=== PATIENT | female | born 1990 | race Caucasian/White ===

== ENCOUNTER 2021-02-05 15:11 | Outpatient (CLI) | payer OTHER, SELFPAY ==
[2021-02-05 16:23] LABS: Abs Immature Grans 0.03 10^3/uL (0.0-0.06); Absolute Basophil Count 0.02 10^3/uL (0.0-0.2); Absolute Eosinophil Count 0.08 10^3/uL (0.0-0.7); Absolute Lymphocyte Count 2.51 10^3/uL (1.2-3.4); Absolute Monocyte Count 0.59 10^3/uL (0.1-0.8); Absolute Neutrophil Count 7.56 10^3/uL (1.2-6.7); Basophils % 0.2; Eosinophils % 0.7; HCT 39.8 % (36.0-46.0); HGB 13.3 g/dL (11.2-15.7); Immature Grans % 0.3; Lymphocytes % 23.3; MCH 31.3 pg (27.0-33.0); MCHC 33.4 % (32.0-36.0); MCV 93.6 fL (80-95); MPV 11.5 fL (8.0-11.0); Monocytes % 5.5; Nucleated RBC 0 %; Platelet Count 237 10^3/uL (130-400); RBC 4.25 10^6/uL (3.93-5.22); RDW-SD 44.4 fL; WBC 10.79 10^3/uL (4.4-10.8)
[2021-02-05 16:51] LABS: *AMPHETAMINES SCREEN URINE Negative (Negative); *BARBITURATES SCREEN URINE Negative (Negative); *BENZODIAZEPINES SCREEN URINE Negative (Negative); Cannabinoids THC Negative (Negative); Cocaine Screen,Urine Negative (Negative); METHADONE URINE SCREEN Negative (Negative); OPIATES URINE SCREEN Negative (Negative)
[2021-02-05 16:54] LABS: Tricyclic Antidepressants Negative (Negative)
[2021-02-05 17:50] LABS: TSH (W/Ref FT4) 0.04 uIU/mL (0.36-3.74)
[2021-02-07 10:47] LABS: Hepatitis B Surface Ag Negative (Negative)
[2021-02-07 11:27] LABS: Hepatitis C Ab w Rflx HCV PCR Negative (Negative)
[2021-02-07 11:32] LABS: HIV-1/2 Ag & Ab Screen Negative (Negative)
[2021-02-07 13:53] LABS: Syphilis Total Ab w/Reflex Nonreactive (Nonreactive)
[2021-02-07 15:12] LABS: Rubella IgG Ab (UVM) Positive (See Note)
[2021-02-08 11:52] LABS: Varicella IgG Antibody Negative (See Note)
[2021-02-09 11:00] LABS: Buprenorphine Negative ng/mL (Cutoff: 5.0); Norbuprenorphine Negative ng/mL (Cutoff: 2.5)
[2021-02-09 18:15] LABS: Specimen WB Whole Blood
[2021-02-14 22:52] LABS: Result Summary NEGATIVE; Specimen WB Whole Blood
== END 2021-02-05 15:12 | disposition home or self-care (01) ==
LOC: LBO 15:14
PROVIDERS: PCP Nurse Practitioner Community Health; Visit Provider Advanced Practice Midwife
DX: Z34.91 Encounter for supervision of normal pregnancy, unspecified, first trimester (principal); Z11.4 Encounter for screening for human immunodeficiency virus [HIV]; Z11.59 Encounter for screening for other viral diseases; Z01.84 Encounter for antibody response examination
CPT/HCPCS: 36415; 80307; 81329; 86787; 86803; 86850; 86900; 86901; 87340; 87389; 81220; 84439; 84443; 85025; 86762; 86780; 87086

== ENCOUNTER 2021-02-14 07:25 | Outpatient (CLI) | payer OTHER, SELFPAY ==
[2021-02-14 10:52] LABS: Glucose,1 Hr (Glucola) 85 mg/dL (80-140)
[2021-02-15 04:30] LABS: Vitamin D 25 Total 22.2 ng/mL (30-100)
== END 2021-02-14 07:26 | disposition home or self-care (01) ==
LOC: LBO 07:33
PROVIDERS: PCP Nurse Practitioner Community Health; Visit Provider Advanced Practice Midwife
DX: O99.342 Other mental disorders complicating pregnancy, second trimester (principal); Z68.30 Body mass index [BMI] 30.0-30.9, adult; F32.9 Major depressive disorder, single episode, unspecified; Z3A.14 14 weeks gestation of pregnancy; E55.9 Vitamin D deficiency, unspecified
CPT/HCPCS: 36415; 82306; 82950

== ENCOUNTER 2021-03-16 11:14 | Outpatient (REF) | payer OTHER, SELFPAY ==
[2021-03-19 15:11] LABS: Chlamydia Result Negative (Negative); GC Result Negative (Negative)
== END 2021-03-16 11:15 | disposition home or self-care (01) ==
LOC: LBN 11:14
PROVIDERS: PCP Nurse Practitioner Community Health; Visit Provider Advanced Practice Midwife
DX: Z11.3 Encounter for screening for infections with a predominantly sexual mode of transmission (principal)
CPT/HCPCS: 87491; 87591

== ENCOUNTER 2021-06-08 02:46 | Outpatient (CLI) | payer OTHER, SELFPAY ==
[2021-06-08 12:15] LABS: HCT 32.7 % (36.0-46.0); HGB 10.7 g/dL (11.2-15.7); MCH 30.6 pg (27.0-33.0); MCHC 32.7 % (32.0-36.0); MCV 93.4 fL (80-95); MPV 11.1 fL (8.0-11.0); Platelet Count 194 10^3/uL (130-400); RDW 13.5 % (11.7-14.6); RDW-SD 46.2 fL; WBC 11.86 10^3/uL (4.4-10.8)
[2021-06-08 12:23] LABS: Glucose,1 Hr (Glucola) 102 mg/dL (80-140)
[2021-06-08 13:57] LABS: FREE T4 1.01 ng/dL (0.76-1.46)
== END 2021-06-08 02:47 | disposition home or self-care (01) ==
LOC: LBO 02:46
PROVIDERS: Advanced Practice Midwife; PCP Nurse Practitioner Community Health; Visit Provider Advanced Practice Midwife
DX: O09.293 Supervision of pregnancy with other poor reproductive or obstetric history, third trimester (principal); Z79.82 Long term (current) use of aspirin; R79.89 Other specified abnormal findings of blood chemistry; Z3A.30 30 weeks gestation of pregnancy
CPT/HCPCS: 82950; 85027; 84439; 84443

== ENCOUNTER 2021-07-19 16:54 | Outpatient (REF) | payer OTHER, SELFPAY ==
[2021-07-19 16:18] LABS: *AMPHETAMINES SCREEN URINE Negative (Negative); *BARBITURATES SCREEN URINE Negative (Negative); *BENZODIAZEPINES SCREEN URINE Negative (Negative); Cannabinoids THC Negative (Negative); Cocaine Screen,Urine Negative (Negative); METHADONE URINE SCREEN Negative (Negative); OPIATES URINE SCREEN Negative (Negative)
[2021-07-19 16:19] LABS: Tricyclic Antidepressants Negative (Negative)
[2021-07-24 14:15] LABS: Buprenorphine Negative ng/mL (Cutoff: 5.0); Norbuprenorphine Negative ng/mL (Cutoff: 2.5)
== END 2021-07-19 16:55 | disposition home or self-care (01) ==
LOC: NCHCN 16:54
PROVIDERS: PCP Nurse Practitioner Community Health; Visit Provider Advanced Practice Midwife
DX: Z34.93 Encounter for supervision of normal pregnancy, unspecified, third trimester (principal); Z3A.36 36 weeks gestation of pregnancy
CPT/HCPCS: 80307; 87081

== ENCOUNTER 2021-07-31 15:20 | Outpatient (CLI) | payer OTHER, SELFPAY ==
[2021-07-31 15:25] VITALS: BP 123/79; PULSE 79; TEMP 36.6
[2021-07-31 15:49] VITALS: BP 127/82; PULSE 75; TEMP 36.6
[2021-07-31 16:04] VITALS: BP 133/86; PULSE 74
[2021-07-31 16:19] VITALS: BP 130/79; PULSE 81
[2021-07-31 16:31] LABS: HCT 30.1 % (36.0-46.0); HGB 9.6 g/dL (11.2-15.7); MCH 28.7 pg (27.0-33.0); MCHC 31.9 % (32.0-36.0); MCV 90.1 fL (80-95); MPV 11.2 fL (8.0-11.0); Platelet Count 180 10^3/uL (130-400); RBC 3.34 10^6/uL (3.93-5.22); RDW 14.9 % (11.7-14.6); RDW-SD 48.8 fL; WBC 9.37 10^3/uL (4.4-10.8)
[2021-07-31 16:36] LABS: PROTEIN 24.8 mg/dL
[2021-07-31 16:44] LABS: COMMENT (LAB VIEW ONLY) 57.97 mg/dL; Prot/Crea Ur Ratio 0.42
[2021-07-31 16:46] LABS: ALT 14 U/L (14-59); AST 16 U/L (15-37); Albumin 2.6 g/dL (3.4-5.0); Alkaline Phosphatase 142 U/L (46-116); Anion Gap 9.9 mmol/L (3-11); BUN 10 mg/dL (7-18); Bilirubin, Total 0.3 mg/dL (0.2-1.0); CO2 23.1 mmol/L (21.0-32.0); CREATININE 0.7 mg/dL (0.55-1.02); Calcium 8.8 mg/dL (8.5-10.1); Chloride 106 mmol/L (98-107); Glucose 80 mg/dL (74-106); Potassium 3.8 mmol/L (3.5-5.1); Sodium 139 mmol/L (136-145); Total Protein 6.8 g/dL (6.4-8.2); Uric Acid 5.6 mg/dL (2.6-6.0)
--- NOTE | 2021-07-31 18:59 | W.OBNST ---
Date of service: 07/31/21 Time of Service: 18:59 NST Evaluation Reason for NST Reasons for Nonstress Test: CHRONIC HYPERTENSION Gestational Age Gestational Age in Weeks and Days: 38 Weeks and 1Days Test and Monitor Explained Test/Monitor Explained: Test Explained, Monitor Explained and Patient Verbalized Understanding Vital Signs Blood Pressure: 123/79 Pulse: 79 Temperature: 97.9 F NST Information Date on Monitor: 07/31/21 Time on Monitor: 15:19 Date off Monitor: 07/31/21 Time off Monitor: 16:23 Total Time on Monitor: 64 NST Interventions: PO Hydration and Notify Provider NST Evaluation Patient States Movement: Present FHR Baseline: 130 Variability: Moderate 6-25 bpm Accelerations: 15x15 Decelerations: None NST Results: Reactive Note NST Note Note: Labs pending BP normotensive NST reactive RTO on Friday for repeat NST & BP check NST Reviewed and Verified by: Claire Zurita
[2021-07-31 19:00] VITALS: BP 123/79; PULSE 79; TEMP 36.6
== END 2021-07-31 16:30 | disposition home or self-care (01) ==
LOC: BCD 15:21 → OBS 15:39
PROVIDERS: PCP Nurse Practitioner Community Health; Visit Provider Advanced Practice Midwife
DX: O10.013 Pre-existing essential hypertension complicating pregnancy, third trimester (principal); Z3A.38 38 weeks gestation of pregnancy
CPT/HCPCS: 36415; 80053; 85027; 99211; 59025; 82565; 84156; 84550

== ENCOUNTER 2021-08-02 15:30 | Outpatient (REF) | payer OTHER, SELFPAY ==
[2021-08-02 11:38] LABS: Creatinine,Urine 34.85 mg/dL; PROTEIN 17.2 mg/dL (0.0-11.9)
[2021-08-02 11:39] LABS: Creatinine,24hr Ur 1.01 g/24hr (0.60-1.80); TOTAL PROTEIN,URINE TIMED 498.8 mg/24hr (0.0-149.1); Total Volume 2900 ml
== END 2021-08-02 15:31 | disposition home or self-care (01) ==
LOC: LBN 15:30
PROVIDERS: PCP Nurse Practitioner Community Health; Visit Provider Advanced Practice Midwife
DX: R80.9 Proteinuria, unspecified (principal); Z34.93 Encounter for supervision of normal pregnancy, unspecified, third trimester
CPT/HCPCS: 81050; 82570; 84155

== ENCOUNTER 2021-08-03 07:48 | Outpatient (CLI) | payer OTHER, SELFPAY ==
[2021-08-03 14:50] VITALS: BP 139/82; PULSE 78; TEMP 36.7
[2021-08-03 15:02] VITALS: BP 139/82; PULSE 78
--- NOTE | 2021-08-03 15:28 | W.OBNST ---
Date of service: 08/03/21 Time of Service: 15:28 NST Evaluation Reason for NST Reasons for Nonstress Test: GESTATIONAL HYPERTENSION Gestational Age Gestational Age in Weeks and Days: 38 Weeks and 4Days Test and Monitor Explained Test/Monitor Explained: Test Explained, Monitor Explained and Patient Verbalized Understanding Vital Signs Blood Pressure: 139/82 Pulse: 78 Temperature: 98.1 F Urine Results Urine Protein: Positive Urine Ketones: Negative Urine Glucose: Negative Urine Blood: Positive NST Information Date on Monitor: 08/03/21 Time on Monitor: 14:58 Date off Monitor: 08/03/21 Time off Monitor: 15:24 Total Time on Monitor: 26 NST Interventions: PO Hydration Contraction Frequency: 0 NST Evaluation Patient States Movement: Present FHR Baseline: 135 Variability: Moderate 6-25 bpm Accelerations: 15x15 Decelerations: None NST Results: Reactive Note NST Note Note: NST is reactive and reassuring. BP is stable 139/82, no edema, denies RICHARDSON, visual disturbance, epigastric pain or ill feeling. Prefers to avoid induction if possible. Strike Planning Applications reviewed NST, VS and recent 24 hour urine protein as well as patient history with Dr. Lamb who agreed to repeat testing next week. Patient will return for NST 08/07/21 at 1 pm and will be further assessed at that time. We discussed misoprostol, balloon, pitocin as methods of induction and will likely plan VE next week as well. Patient is pleased to go home and will call with any concerns. NST Reviewed and Verified by: Beatriz Scott
[2021-08-03 15:30] VITALS: BP 139/82; PULSE 78; TEMP 36.7
[2021-08-04 08:20] VITALS: BP 136/81; PULSE 67
== END 2021-08-03 15:28 | disposition home or self-care (01) ==
LOC: BCD 07:49 → OBS 14:49
PROVIDERS: PCP Nurse Practitioner Community Health; Visit Provider Advanced Practice Midwife
DX: O13.3 Gestational [pregnancy-induced] hypertension without significant proteinuria, third trimester (principal); Z3A.38 38 weeks gestation of pregnancy
CPT/HCPCS: 59025

== ENCOUNTER 2021-08-07 07:24 | Outpatient (CLI) | payer OTHER, SELFPAY ==
[2021-08-07 13:12] VITALS: BP 136/75; PULSE 78
[2021-08-07 13:14] VITALS: BP 136/75; PULSE 78; TEMP 36.6
[2021-08-07 13:30] VITALS: BP 136/75; PULSE 78; TEMP 36.6
--- NOTE | 2021-08-07 13:40 | W.OBNST ---
Date of service: 08/07/21 Time of Service: 13:30 NST Evaluation Reason for NST Reasons for Nonstress Test: GESTATIONAL HYPERTENSION Gestational Age Gestational Age in Weeks and Days: 39 Weeks and 1Days Test and Monitor Explained Test/Monitor Explained: Test Explained, Monitor Explained and Patient Verbalized Understanding Vital Signs Blood Pressure: 136/75 Pulse: 78 Temperature: 97.8 F NST Information Date on Monitor: 08/07/21 Time on Monitor: 13:02 Date off Monitor: 08/07/21 Time off Monitor: 13:22 Total Time on Monitor: 20 NST Interventions: None Contraction Frequency: 0 NST Evaluation Patient States Movement: Present FHR Baseline: 120 Variability: Moderate 6-25 bpm Accelerations: 15x15 Decelerations: None NST Results: Reactive Note NST Note Note: Michell presents for NST due to history of GHTN in previous , as well as proteinuria affecting this . She is feeling well and prefers to avoid induction of labor but agrees to induction at 40 weeks gestation. She denies RICHARDSON, visual disturbance or epigastric pain. Denies edema. Reports active baby. She has occasional contractions. No LOF or vaginal bleeding. VE today fingertip 50% soft -2 cervix is funneled with exterior os almost 2 cm and internal os fingertip. She is aware of methods of induction available including misoprotol, liu bulb, pitocin and AROM that may be used during process. We discussed that after her due date there is no benefit to baby remaining in uterus and her kidneys have shown evidence of potential injury likely related to her mild HTN and . Denies questions and will return for NST on 08/10/21 and IOL on 08/13/21 or call CNM foreign legal consultant with concerns prior to that time. LAURA NST Reviewed and Verified by: Beatriz Scott
[2021-08-07 13:45] VITALS: BP 136/75; PULSE 78; TEMP 36.6
[2021-08-08 11:08] VITALS: BP 112/65; PULSE 100
== END 2021-08-07 13:40 | disposition home or self-care (01) ==
LOC: BCD 07:24 → OBS 12:54
PROVIDERS: PCP Nurse Practitioner Community Health; Visit Provider Advanced Practice Midwife
DX: O12.13 Gestational proteinuria, third trimester (principal); Z3A.39 39 weeks gestation of pregnancy; Z86.79 Personal history of other diseases of the circulatory system
CPT/HCPCS: 59025

== ENCOUNTER 2021-08-10 07:35 | Outpatient (CLI) | payer OTHER, SELFPAY ==
[2021-08-10 14:50] VITALS: BP 128/78; PULSE 82; TEMP 36.6
--- NOTE | 2021-08-10 17:19 | W.OBNST ---
Date of service: 08/10/21 Time of Service: 16:30 NST Evaluation Reason for NST Reasons for Nonstress Test: GESTATIONAL HYPERTENSION Gestational Age Gestational Age in Weeks and Days: 39 Weeks and 4Days Test and Monitor Explained Test/Monitor Explained: Test Explained and Monitor Explained Vital Signs Blood Pressure: 128/78 Pulse: 82 Temperature: 97.9 F Urine Results Urine Protein: Positive Urine Ketones: Negative Urine Glucose: Negative Urine Blood: Positive NST Information Date on Monitor: 08/10/21 Time on Monitor: 14:54 Date off Monitor: 08/10/21 Time off Monitor: 16:22 Total Time on Monitor: 88 NST Interventions: PO Hydration NST Evaluation Patient States Movement: Present FHR Baseline: 145 Variability: Moderate 6-25 bpm Accelerations: 15x15 Decelerations: None NST Results: Reactive Note NST Note Note: reactive and reassuring NST for pre-eclampsia in . No signs of labor. Denies RICHARDSON, visual disturbance or epigastric pain. No LOF or vaginal bleeding. Baby is active. Has IOL scheduled for 08/13/21. LAURA NST Reviewed and Verified by: Beatriz Scott
[2021-08-10 17:21] VITALS: BP 128/78; PULSE 82; TEMP 36.6
== END 2021-08-10 16:25 | disposition home or self-care (01) ==
LOC: BCD 07:36 → OBS 14:48
PROVIDERS: PCP Nurse Practitioner Community Health; Visit Provider Advanced Practice Midwife
DX: O13.3 Gestational [pregnancy-induced] hypertension without significant proteinuria, third trimester (principal); Z3A.39 39 weeks gestation of pregnancy
CPT/HCPCS: 59025

== ENCOUNTER 2021-08-12 22:17 | Inpatient (IN) | payer OTHER, SELFPAY ==
[2021-08-12 23:24] LABS: Source Nasal/Nares
[2021-08-12 23:30] VITALS: BP 125/65; PULSE 114; RESP 22; TEMP 37.1
[2021-08-13] VITALS (34 sets, daily range): BP systolic 72–146; BP diastolic 40–92; PULSE 63–106; RESP 12–18; TEMP 36.6–37.1; O2SAT 96–100; BMI 33.5
--- NOTE | 2021-08-13 00:10 | HPE_ITS ---
Date of service: 08/13/21 Time of Service: 00:10 Assessment and Plan Assessment and plan (1) Spontaneous onset of labor: Status: Acute Assessment and plan: Admit to Center. Comfort measures. Covid- 19 test. Requested the tub for comfort but moved to hands and knees on the floor. Coping well with contractions. Anticipate . OB-HPI Labor/Delivery History of Present Illness Reason for Visit: RULE OUT LABOR Chief Complaint: Uterine Contractions. KENNETH Calculator Estimated Delivery Date Method Current WG Current Estimate 08/13/21 LMP (Certain) 40w 0d Other Estimates 08/21/21 Ultrasound #1 38w 6d Comments: strong regular contractions, receiving support from Waleska rios and her Jacques History of Present Expected Delivery Route/Plan - CNM FOB/ - Jacques Garrido (their second child together) Does not want to know gender - do not announce gender at delivery - discuss @ second stage huddle Will not circ if male Varicella non-immune, offer vaccine support team is Jacques () and blanca Min GBS negative Specific Issues/Plan 1. Developed HTN in labor at center, transferred to [facility] hosp, , had PPH. 1a. Request delivery records from [facility] 1a. Records from Center indicate patient had severe range BP's that required Nifedipine and after delivery there was PPH requiring 2 units of PRBC's this is anecdotally recorded was on NIfedipine for a week or so PP as well. 1c. Started 81 mg/161 mg low dose ASA alternating daily at 13 weeks, 1d. 04/13 - taking 81 mg daily due to bruising. 3. Hx depression, took Wellbutrin briefly without relief, no meds, looking for a therapist 3a. will offer referral to [facility] for eval and referral, declined 06/08/21 3b. Began therapy at the [facility] in November 2020 3c. Enrolled in [employer] program, had first home visit May 2021 4. Insurance declined APOLINAR for APOLINAR [place] approved for CF/SMA carrier screening, drawn 02/05 4a. CF/SMA screen negative 5. PAP was done 03/15/20 @ [facility], records received & scanned into EMR 6. 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 Offer LC consult after 36 wks 7. Early glucola for BMI=30: 85. glucola @ 30 wks = 102 8. Has been fully vaccinated against COVID, is vaccinated too 9. Initial OB TSH 0.04/T4 1.20, Discussed w/patient, redrawn @ 30 wks: TSH 0.20 (L)/T4 1.01, repeat in labor 10. Varicella non immune, discussed PP vaccine , pt accepts 11. Vit D low at 22.2, will recommend supplementation. @ 30 wks: taking gummy Vit D supplement 12. Petechial rash on chin and neck - consult with Dr. Bateman - CBC with diff ordered 12a. Cleared up after 1 week PFSH Medical History Depression Family History Father Diabetes Hypertension Social History Smoking risk assessment performed?: No Female Reproductive History Menstrual control method: none History History 3 Para 1 Hx # Term Pregnancies 1 Multiple births 0 Hx # Pregnancies 0 Ectopic pregnancies 0 AB induced 0 Hx Number of Living Children 1 AB spontaneous 1 Past Pregnancies Del. Date GA/Weeks # Outcome Route Wgt Sex Labor Lgth Anesthes ia Location [facility] 11/10/19 40 No Successful vaginal 8 lb 13 oz Male 48+ hrs regional CNM at [facility] In [facility] Delivery Date: 11/10/19 Saw midwives at [facility], labored there for 10 hrs transfered to hospital for HTN, augmented, epidural, labored 2 more days, , PPH of 900 ml, required 2 units PRBC's, Beatriz Camilo Allergies and Home Medications Allergies Allergy/AdvReac Type Severity Reaction Status Date / Time No Known Allergies Allergy Verified 08/07/21 13:48 Home Medications Medication Instructions Recorded Confirmed Type prenat.vits,zhou,olh-ljqn-uands 1 tab PO DAILY 01/02/21 08/07/21 History aspirin 81 mg tablet,delayed 81 mg PO DAILY #90 tab 02/05/21 08/07/21 Rx release cholecalciferol (vitamin D3) 10 2,000 unit PO DAILY tab 06/22/21 08/07/21 History mcg (400 unit) chewable tablet iron sucrose 200 mg iron/10 mL 200 mg IV ONCE #10 ml 07/31/21 08/07/21 Rx intravenous solution Exam Physical Exam Vital signs: Temp Pulse Resp BP 98.8 F 114 H 22 125/65 08/12/21 23:30 08/12/21 23:30 08/12/21 23:30 08/12/21 23:30 Vital Signs Reviewed: Yes Constitutional Constitutional: moderate distress Comments: breathing through contractions and hands and knees position Detailed Labor and Delivery Exam Dilation: 5 Effacement (%): 100 station: -2 Cervix position: mid Consistency: soft Sterling Score: Cervical Points Exam 0 1 2 3 Dilation Closed 1-2cm 3-4 cm 5-6cm Effacement 0-30% 40-50% 60-70% 80% Consistency Firm Medium Soft Station -3 -2 -1,0 +1,+2 Position Posterior Mid Anterior Amniotic Membrane Status: Intact Monitor Mode: External Contraction Frequency(min): every 3 minutes Contraction Duration(sec): 60 Contraction Intensity: Moderate/Strong Fetus A Heart Rate Baseline: 130 Monitor Accelerations: 15 X 15 Monitor Decelerations: None Variability: Moderate (6-25 BPM) Presentation: Cephalic Categories: Category I Respiratory Exam Respiratory Exam: Normal Cardiovascular Exam Cardiovascular Exam: Normal Abdominal Exam Abdominal Exam: Normal Exam Exam: Normal Extremities Exam Extremities Exam: Normal Skin Exam Skin Exam: Normal Psychiatric Exam Psychiatric Exam: Normal Risk Assessment Risk for Shoulder Dystocia Historical/Initial OB: POSITIVE FOR: Pre- BMI>30; NEGATIVE FOR: Pelvic Abnormality, Previous Shoulder Dystocia or Previous Macrosomia Counseling: proven to 8'3 Delivery Plan @ 36wks: spont labor, Risk for Pre-Eclampsia Date Initiated/Initials: to start low dose ASA 01/27/21 jk Yes, if one or more: POSTIVE FOR: Hx Pre-E/Gest HTN; NEGATIVE FOR: Chronic HTN, Multiple Gestation, Pre-gestational DM, Renal Disease, Systemic Lupus or APA Syndrome Yes, if 2 or more: POSITIVE FOR: BMI>30; NEGATIVE FOR: Nulliparity, Age>= 35 yrs, >10yr btwn pregnancies, ethinicty, Mother/Sister w/ Pre-E or Previous IUGR Risk for Post- Hemorrhage Initial: POSITIVE FOR: Previous PPH; NEGATIVE FOR: Multiple Gestation, Known Clotting Deficiency, Grand Multiparity or Anticoagulation Risks Reviewed Risks Reviewed Upon Admission: Yes
[2021-08-13 00:13] LABS: COVID-19 PCR Negative (Negative)
[2021-08-13 00:41] LABS: HCT 35.4 % (36.0-46.0); HGB 11.4 g/dL (11.2-15.7); MCH 29.3 pg (27.0-33.0); MCHC 32.2 % (32.0-36.0); MPV 11.3 fL (8.0-11.0); Platelet Count 213 10^3/uL (130-400); RBC 3.89 10^6/uL (3.93-5.22); RDW 17.8 % (11.7-14.6); RDW-SD 57.1 fL; WBC 14.68 10^3/uL (4.4-10.8)
[2021-08-13] MEDS: Nalbuphine 10 MG/ML AMP SC (00:42)
[2021-08-13] MEDS: Lactated Ringers 1,000 ML 1000 ML IV (01:09)
--- NOTE | 2021-08-13 01:09 | PGE_ITS ---
Date of service: 08/13/21 Time of Service: 01:09 Pelvic Exam Dilation: 5 Effacement (%): 80 station: -2 Cervix Position: mid Consistency: soft Vaginal Exam Presentation: Cephalic Pooling: Negative Contractions Monitor Mode: External Contraction Frequency(min): every 3 min Contraction Duration(sec): 60 Intensity: Strong Fetus A Monitor: Doppler Heart Rate Baseline: 130 Presentation: Vertex Decelerations: None Amniotic Membrane Status: Intact Assessment and Plan Assessment and plan (1) Spontaneous onset of labor: Status: Acute Assessment and plan: Continue to provide comfort measures. nubain 10 mg was administered with good effect and epidural anaalgesia was requested. Katlyn deloris FISH AND WILDLIFE BIOLOGIST is en route. Objective Abnormal lab results 08/13/21 Range/Units 00:35 WBC 14.68 H (4.4-10.8) 10^3/uL RBC 3.89 L (3.93-5.22) 10^6/uL Hct 35.4 L (36.0-46.0) % RDW 17.8 H (11.7-14.6) % MPV 11.3 H (8.0-11.0) fL Temp Pulse Resp BP 98.8 F 114 H 22 125/65 08/12/21 23:30 08/12/21 23:30 08/12/21 23:30 08/12/21 23:30 Laboratory Results WBC 14.68 10^3/uL (4.4-10.8) H 08/13/21 00:35 RBC 3.89 10^6/uL (3.93-5.22) L 08/13/21 00:35 Hgb 11.4 g/dL (11.2-15.7) 08/13/21 00:35 Hct 35.4 % (36.0-46.0) L 08/13/21 00:35 MCV 91.0 fL (80-95) 08/13/21 00:35 MCH 29.3 pg (27.0-33.0) 08/13/21 00:35 MCHC 32.2 % (32.0-36.0) 08/13/21 00:35 RDW 17.8 % (11.7-14.6) H 08/13/21 00:35 Plt Count 213 10^3/uL (130-400) 08/13/21 00:35 MPV 11.3 fL (8.0-11.0) H 08/13/21 00:35 COVID-19 Source Nasal/Nares 08/12/21 23:15 SARS-CoV-2 (PCR) Negative (Negative) 08/12/21 23:15 Subjective Patient Reports: New Complaints Interval history since last seen: Michell is coping well but she requests pain medication. We reviewed options and she requests Nubain SC and an epidural for pain relief. Results Hemoglobin/Hematocrit: Hgb 11.4 g/dL (11.2-15.7) 08/13/21 00:35 Hct 35.4 % (36.0-46.0) L 08/13/21 00:35 Abnormal Lab Findings: Abnormal Labs 08/13/21 00:35 WBC 14.68 H RBC 3.89 L Hct 35.4 L RDW 17.8 H MPV 11.3 H
--- NOTE | 2021-08-13 01:18 | W.ANESPRE ---
General Info Date of Service Date Performed: 08/13/21 Height: 5 ft 8 in Weight: 100.244 kg Body Mass Index (BMI): 33.5 Meds Allergies and Home Medications Allergies Allergy/AdvReac Type Severity Reaction Status Date / Time No Known Allergies Allergy Verified 08/07/21 13:48 Home Medication Medication Instructions Recorded prenat.vits,zhou,zdj-ugdy-fzahp 1 tab PO DAILY 01/02/21 aspirin 81 mg tablet,delayed 81 mg PO DAILY #90 tab 02/05/21 release cholecalciferol (vitamin D3) 10 2,000 unit PO DAILY tab 06/22/21 mcg (400 unit) chewable tablet iron sucrose 200 mg iron/10 mL 200 mg IV ONCE #10 ml 07/31/21 intravenous solution Current Visit Medications: Current Medications Generic Name Dose Route Start Last Admin Trade Name Freq PRN Reason Stop Dose Admin Sodium Chloride 500 mls @ 0 mls/hr 08/12/21 23:35 Saline 500ml Bag IV PRN PRN As Directed Ringer's Solution 1,000 mls @ 1,000 mls/hr 08/13/21 01:07 08/13/21 01:09 IV 08/13/21 02:06 1,000 mls/hr BOLUS ONE Administration IV Miscellaneous Supplies 1 each 08/12/21 23:45 Iv Access IV DIRECTED YAYO Sodium Chloride 0 ml 08/12/21 23:35 Normal Saline Flush 10 Ml Syr IVP PRN PRN PFSH Active Problems Active Problems: Problem Status Onset Code Spontaneous onset of labor Proteinuria R80.9 Low TSH level R79.89 Maternal varicella, non-immune O09.899, Z28.3 BMI 30.0-30.9,adult Z68.30 History of gestational hypertension Z87.59 History of hemorrhage, currently O09.299 Z34.90 Depression F32.9 Medical History Medical History Depression Prental History History 3 Para 1 Hx # Term Pregnancies 1 Multiple births 0 Hx # Pregnancies 0 Ectopic pregnancies 0 AB induced 0 Hx Number of Living Children 1 AB spontaneous 1 Past Pregnancies Del. Date GA/Weeks # Outcome Route Wgt Sex Labor Lgth Anesthesia Location Prov [facility] 11/10/19 40 No Successful vaginal 3997.283 g Male 48+ hrs regional CNM at [facility] In [facility] Delivery Date: 11/10/19 Saw midwives at [facility], labored there for 10 hrs transfered to hospital for HTN, augmented, epidural, labored 2 more days, , PPH of 900 ml, required 2 units PRBC's, Beatriz Camilo Vital Signs and Lab Results Vital Signs Most Recent Vital Signs in EMR: Most Recent Vital Signs Temp Pulse Resp BP 37.1 C 114 H 22 125/65 08/12/21 23:30 08/12/21 23:30 08/12/21 23:30 08/12/21 23:30 Lab Results Result Diagrams: 08/13/21 00:35 Blood Type / Crossmatch: Patient ABO/Rh A Positive 08/13/21 00:35 08/13/21 Antibody Screen NEGATIVE 08/13/21 00:35 08/13/21 Complete Blood Count: White Blood Count 14.68 10^3/uL (4.4-10.8) H 08/13/21 00:35 08/13/21 Red Blood Count 3.89 10^6/uL (3.93-5.22) L 08/13/21 00:35 08/13/21 Hemoglobin 11.4 g/dL (11.2-15.7) 08/13/21 00:35 08/13/21 Hematocrit 35.4 % (36.0-46.0) L 08/13/21 00:35 08/13/21 Platelet Count 213 10^3/uL (130-400) 08/13/21 00:35 08/13/21 Complete Metabolic Panel: Sodium Level 139 mmol/L (136-145) 07/31/21 16:20 07/31/21 Potassium Level 3.8 mmol/L (3.5-5.1) 07/31/21 16:20 07/31/21 Chloride Level 106 mmol/L (98-107) 07/31/21 16:20 07/31/21 Carbon Dioxide Level 23.1 mmol/L (21.0-32.0) 07/31/21 16:20 07/31/21 Blood Urea Nitrogen 10 mg/dL (7-18) 07/31/21 16:20 07/31/21 Creatinine 0.7 mg/dL (0.55-1.02) 07/31/21 16:20 07/31/21 Estimated GFR/1.73 m2 >= 60.00 (mL/min/1.73m2) 07/31/21 16:20 07/31/21 Calcium Level 8.8 mg/dL (8.5-10.1) 07/31/21 16:20 07/31/21 Albumin 2.6 g/dL (3.4-5.0) L 07/31/21 16:20 07/31/21 Glucose Level 80 mg/dL (74-106) 07/31/21 16:20 07/31/21 Liver Function Panel: Alanine Aminotransferase (ALT/SGPT) 14 U/L (14-59) 07/31/21 16:20 07/31/21 Aspartate Amino Transf (AST/SGOT) 16 U/L (15-37) 07/31/21 16:20 07/31/21 Coagulation Panel: No Data to Display Cardiac Panel: No Data to Display Arterial Blood Gas: No Data to Display Venous Blood Gas: No Data to Display Pancreas Panel: No Data to Display Thyroid Panel: No Data to Display Infectious Disease: Coronavirus (COVID-19)(PCR) Negative (Negative) 08/12/21 23:15 08/12/21 Coronavirus 2019 Source Nasal/Nares 08/12/21 23:15 08/12/21 Blood Cultures: No Data to Display Toxicology Panel: Urine Amphetamines Screen Negative (Negative) 07/19/21 15:05 07/19/21 Urine Benzodiazepines Screen Negative (Negative) 07/19/21 15:05 07/19/21 Urine Barbiturates Screen Negative (Negative) 07/19/21 15:05 07/19/21 Urine Cocaine Screen Negative (Negative) 07/19/21 15:05 07/19/21 Urine Methadone Screen Negative (Negative) 07/19/21 15:05 07/19/21 Urine Opiates Screen Negative (Negative) 07/19/21 15:05 07/19/21 Ur Tricyclic Antidepressants Screen Negative (Negative) 07/19/21 15:05 07/19/21 Ur Tetrahydrocannabinol (THC) Scrn Negative (Negative) 07/19/21 15:05 07/19/21 Panel: No Data to Display Anesthesia Assessment and Plan Anesthesia History Personal History: No History of Anesthesia Complications Family History: No Family History of Anesthesia Complications Exercise Tolerance Exercise Tolerance: Metabolic Equivalents>4 Cardiac & Pulmonary Exam Cardiac Exam: Normal S1/S2 Heart Sounds Pulmonary Exam: Clear Bilateral Breath Sounds Cardiac and Pulmonary Comment:: proteinuria, BP normal Implantable Cardiac Device Does patient have a Pacemaker or an ICD?: No Airway Exam Known Difficult Airway: No Thyromental Distance: Greater than 3 cm Neck Range of Motion: Full ROM Neck Circumference: Normal Teeth Condition: Normal Dentition ASA Classification ASA Score: ASA 2 Emergency Case?: No NPO Status NPO Status: Full Stomach () Status Status: Confirmed Anesthesia Plan Resuscitation Status: Full Code Anesthesia Technique: Epidural Anesthesia Airway Planned: Natural Airway Monitors Used: Standard Monitors
[2021-08-13] MEDS: Oxytocin/Normal Saline 30 UNIT/500 ML BAG 167 UNITS IV (01:45)
[2021-08-13] MEDS: miSOPROStol 200 MCG TAB 400 MCG SL ×2 (01:55→05:29)
[2021-08-13] MEDS: Methylergonovine 0.2 MG/ML VIAL (02:41)
--- NOTE | 2021-08-13 03:28 | OBVDS_ITS ---
Date of service: 08/13/21 Time of Service: 03:29 OB Labor/ Delivery Information Baby A Delivery Delivery Method: Spontaneaous Presentation: Cephalic Cephalic Position: Vertex Vertex Position: Right Occipital Anterior Cord Description-Baby A: 3 Vessels Amniotic Fluid: Meconium (light) Estimated Blood Loss: 800 Delivery Outcome: Liveborn Infant Transferred: Remains with Mother Note: FHTs 130s during first stage of labor. Michell requested an epidural and Katlyn NITRO WORKER arrived as the membranes ruptured. Michell had an immediate urge to push after rupture of membranes and began bearing down while in the hands and knees position. Spontaneous delivery of female infant delivered in LANG position. Baby was placed on mother's abdomen and dried and stimulated. Spontaneous cry. Cord was clamped and cut by the baby's father. Bright bleeding was noted and the placenta delivered spontaneously and appears to by intact with a three vessel cord. there were trailing membranes. Pitocin 30 units IV was administered simultaneously with delivery of the placenta. The perineum was inspected and was intact. There were a large amount of clots passed after the placenta delivered. There was also a large amount of amniotic fluid in the drape. Blood loss was estimated at 800 cc. The uterus was massaged and cytotec 400 mcg was administered oraly. The uterus was firm after cytotec and the pitocin infusion continued. The baby did breastfeed. After delivery, Mother and baby and father of the baby were stable and bonding well in the delivery room. Providers Nurse Public Address System Operator: Beatriz Rizo Nurse: Elaina Perez Nurse: Mago Mirza Other: Jaylen Mirza Labor/Delivery Information Number of Babies in Womb: 1 Steroids Given: None Reason Steroids Not Administered: N/A Group Beta Strep: Negative Antibiotics Administered: No Medication in Delivery: Nubain, pitocin, cytotec Shoulder Dystocia: No Stages of Labor Onset of Labor Date: 08/12/21 Onset of Labor Time: 21:30 Complete Dilatation Date: 08/13/21 Complete Dilatation Time: 01:30 Labor - Stage 1 Duration: 24 hours and 0 minutes ROM Baby A: 08/13/21 ROM Baby A: 01:25 ROM Total Time- Baby A: [id number] Delivery Date-Baby A: 08/13/21 Delivery Time-Baby A: 01:37 Labor Stage 2 Duration: 7 minutes Placenta Delivery Date-Baby A: 08/13/21 Placenta Delivery Time-Baby A: 01:45 Labor-Stage 3 Duration: 8 minutes Total Length of Labor-Baby A: 4 hours and 7 minutes Placenta Cultured: No Placenta Status: Delivered Baby A Infant Gender: Female Gestational Status: Term (39-41.6 wks) Gestational Age in Weeks/Days: 40 Weeks and 0 Days Hemorrrhage Note Note Note: The patient became lightheaded while sitting upp nursing her baby. The head of the bed was put down. She was unresponsive at that time. O2 was administered at 10 L. B.P was 70s/40s with weak peripheral pulse. The IV in the left hand was infusing slowly so a second IV line was started and 1 L of LR was infused rapidly. B.P. was 90/50 and the patient was responding to discomfort of fundal massage. A small amount of clots were removed with bimanual exam from the cervix. An additional EBL of 200 cc was measured by weight. Dr. Catalan was paged and made aware of the patient's status. As the patient was stable after infusion of Lactated ringers, I did not request her presence. She had another small gush of bright blood with massage and I paged Dr. Bateman and requested that she come to the Center to evaluate Michell. A second bag of pitocin 30 units was hung at 0330 infusing at [address] Bateman arrived at 0345 and assessed Michell and the O.R. team was requested to come in for a possible D and C. Hemorrhage Recognized Date Hemorrhage Recognized: 08/13/21 Time Hemorrhage Recognized: 01:45 Call for Help Date: 08/13/21 Time: 01:45 2nd RN in Room Date: 08/13/21 Time: 01:45 2nd RN: Jaylen Mirza Provider in Room Date: 08/13/21 Time: 02:30 Provider: Beatriz Rizo PPH Cart at Bedside Date: 08/13/21 Time: 01:50 RN Gas Golf Cart Repairer Notified Date: 08/13/21 Time: 02:00 IV Site Right Antecubital: Date: 08/13/21 Time: 02:10 IV Catheter Gauge: 18 Oxygen Date: 08/13/21 Time: 02:00 Garcia Catheter Urinary Catheter Date of Insertion: 08/13/21 Inserted by: Beatriz Rizo CNM straight catheter for 35 cc clear urine Second Provider in Room Date: 08/13/21 Time: 03:45 Provider: Debi Bateman Total Blood Loss for PPH Event Quantitative Blood Loss: 1,100 Bimanual Uterine Compression Date: 08/13/21 Time: 02:30 Labs Drawn Labs Drawn: Yes Transported to OR Date: 08/13/21 Time: 04:30
[2021-08-13] MEDS: Oxytocin/Normal Saline 30 UNIT/500 ML BAG 95 UNITS IV ×2 (03:29→07:12)
[2021-08-13 03:36] LABS: HCT 27.1 % (36.0-46.0); HGB 8.8 g/dL (11.2-15.7); MCH 30.2 pg (27.0-33.0); MCHC 32.5 % (32.0-36.0); MCV 93.1 fL (80-95); MPV 11.7 fL (8.0-11.0); Platelet Count 181 10^3/uL (130-400); RBC 2.91 10^6/uL (3.93-5.22); RDW 17.8 % (11.7-14.6); RDW-SD 58.5 fL; WBC 21.18 10^3/uL (4.4-10.8)
[2021-08-13] MEDS: Ibuprofen 600 MG TAB PO ×2 (03:43→12:46)
--- NOTE | 2021-08-13 04:11 | OBCE_ITS ---
Date of service: 08/13/21 Time of Service: 04:11 Assessment and Plan Assessment and plan (1) hemorrhage, delivered: Status: Acute Assessment and plan: Patient has had a hemorrhage. She has received oxytotic medication. She continues to have ongoing bloodloss She will be taken to the OR for exam under anesthesia, uterine curettage, exploration,. Full informed consent was obtained. History of Present Illness History of Present Illness Chief Complaint: Post Hemorrhage Narrative: Kindly asked to see in consultation this patient in the immediate . Precipitous vaginal delivery with a hemorrhage. At the time of delivery with fentanyl she had approximately 800cc. Subsequent to this, while breast-feeding, she had an episode of hypotension and uterine atony. This responded reasonably well to massage, and cocci pelvic medications. I was called to see the patient after continued trickle and passage of small but prese nt clots. Qualitative blood loss to this point is 20,065 mL. Hemoglobin drop to 8.8. Currently vital signs are stable with blood pressure of 130/70. Due to her ongoing bleeding, difficulty in maintaining uterine tonicity, and moderate hemodynamic instability, coworker was notified for exam under anesthesia, uterine curettage, exploration to evaluate for cervical, or vaginal lacerations. Risk benefits alternatives of the procedure were explained to the patient in full informed consent was obtained. Consults Consult date: 08/13/21 Requesting physician: Beatriz Rizo Review of Systems Cardiovascular Cardiovascular: Denies chest pain at rest and Denies dyspnea Respiratory Respiratory: Denies chest congestion and Denies dyspnea Gastrointestinal Gastrointestinal: Reports cramping Genitourinary Comments: Uterine cramping PFSH Medical History Depression Family History Father Diabetes Hypertension Social History Smoking risk assessment performed?: No Female Reproductive History Menstrual control method: none History History 3 Para 1 Hx # Term Pregnancies 1 Multiple births 0 Hx # Pregnancies 0 Ectopic pregnancies 0 AB induced 0 Hx Number of Living Children 1 AB spontaneous 1 Past Pregnancies Del. Date GA/Weeks # Outcome Route Wgt Sex Labor Lgth Anesthes ia Location Prov Complic 11/10/19 40 No Successful vaginal 8 lb 13 oz Male 48+ hrs regional CN[place] [facility] [place] Delivery Date: 11/10/19 Saw midwives at [facility], labored there for 10 hrs transfered to hospital for HTN, augmented, epidural, labored 2 more days, , PPH of 900 ml, required 2 units PRBC's, Beatriz Camilo Exam Const General: cooperative, no acute distress and ill appearing Nutritional Appearance: overweight Orientation: alert and oriented x3 Eyes General: appearance normal, both eyes and all related structures Neck Neck: normal visual inspection Resp Effort & Inspection: normal respiratory effort Cardio Rate: regular rate Rhythm: regular rhythm GI Inspection: normal to inspection and non-distended Palpation: soft and no guarding Other: Uterus deviated to left, hypertonicity of lower uterine segment, clots expressed from the lower uterine segment Extrem General: normal to inspection Results Last Vital Signs Temp 98.8 F 08/12/21 23:30 Pulse 89 08/13/21 04:07 Resp 22 08/12/21 23:30 BP 125/65 08/13/21 04:03 Pulse Ox 98 08/13/21 04:07 Labs Result diagrams: 08/13/21 03:20 Labs: Laboratory Results - last 24 hr 08/12/21 08/13/21 08/13/21 23:15 00:35 00:35 WBC 14.68 H RBC 3.89 L Hgb 11.4 Hct 35.4 L MCV 91.0 MCH 29.3 MCHC 32.2 RDW 17.8 H Plt Count 213 MPV 11.3 H COVID-19 Source Nasal/Nares SARS-CoV-2 (PCR) Negative Patient ABO/Rh A Positive Antibody Screen NEGATIVE 08/13/21 03:20 WBC 21.18 H D RBC 2.91 L Hgb 8.8 L D Hct 27.1 L D MCV 93.1 MCH 30.2 MCHC 32.5 RDW 17.8 H Plt Count 181 MPV 11.7 H COVID-19 Source SARS-CoV-2 (PCR) Patient ABO/Rh Antibody Screen
--- NOTE | 2021-08-13 04:21 | W.ANESPRE ---
General Info Date of Service Date Performed: 08/13/21 Height: 5 ft 8 in Weight: 100.244 kg Body Mass Index (BMI): 33.5 Meds Allergies and Home Medications Allergies Allergy/AdvReac Type Severity Reaction Status Date / Time No Known Allergies Allergy Verified 08/07/21 13:48 Home Medication Medication Instructions Recorded prenat.vits,zhou,oyz-nwkf-wtjrw 1 tab PO DAILY 01/02/21 aspirin 81 mg tablet,delayed 81 mg PO DAILY #90 tab 02/05/21 release cholecalciferol (vitamin D3) 10 2,000 unit PO DAILY tab 06/22/21 mcg (400 unit) chewable tablet iron sucrose 200 mg iron/10 mL 200 mg IV ONCE #10 ml 07/31/21 intravenous solution Current Visit Medications: Current Medications Generic Name Dose Route Start Last Admin Trade Name Freq PRN Reason Stop Dose Admin Acetaminophen 650 mg 08/13/21 02:11 Acetaminophen 325 Mg Tab PO Q4H PRN PRN Dibucaine 0 gm 08/13/21 02:11 Dibucaine 1% 28 Gm Tube TP TID PRN PRN Docusate Sodium 100 mg 08/13/21 02:11 Docusate Sodium 100 Mg Cap PO BID PRN PRN Fentanyl/Ropivacaine 200 ml 08/13/21 01:30 Fentanyl/Ropivacaine 2 Mcg/Ml And 0.1% 200 Ml Cadd Cassette EP DIRECTED YAYO Sodium Chloride 500 mls @ 0 mls/hr 08/12/21 23:35 Saline 500ml Bag IV PRN PRN As Directed Oxytocin/Sodium Chloride 30 unit in 500 mls @ 95 mls/hr 08/13/21 02:15 08/13/21 03:29 Pitocin/Normal Saline IV 0 ml/hr INFUSION YAYO 95 mls/hr Administration Protocol Sodium Chloride 500 mls @ 0 mls/hr 08/13/21 02:11 Saline 500ml Bag IV PRN PRN As Directed IV Miscellaneous Supplies 1 each 08/12/21 23:45 Iv Access IV DIRECTED [facility] IV Miscellaneous Supplies 1 each 08/13/21 02:15 Iv Access IV DIRECTED [facility] Ibuprofen 600 mg 08/13/21 02:11 08/13/21 03:43 Ibuprofen 600 Mg Tab PO 600 mg Q6H PRN PRN Administration Lidocaine HCl 0 ml 08/13/21 02:11 Lidocaine 1% Multi-Dose 20 Ml Vial IJ DIRECTED PRN Magnesium Hydroxide 30 ml 08/13/21 02:11 Milk Of Magnesia 30 Ml Cup PO HS PRN PRN Misoprostol 400 mcg 08/13/21 02:11 08/13/21 01:55 Misoprostol 200 Mcg Tab SL 08/14/21 02:12 400 mcg PRN PRN Administration Sodium Chloride 0 ml 08/12/21 23:35 Normal Saline Flush 10 Ml Syr IVP PRN PRN Sodium Chloride 0 ml 08/13/21 02:11 Normal Saline Flush 10 Ml Syr IVP PRN PRN Witch Krista/Glycerin 0 each 08/13/21 02:11 [place]/Glycerin 100 Each Box [place] PRN PRN Discomfort PFSH Active Problems Active Problems: Problem Status Onset Code Term of female Z37.0 hemorrhage, delivered O72.1 Spontaneous onset of labor Proteinuria R80.9 Low TSH level R79.89 Maternal varicella, non-immune O09.899, Z28.3 BMI 30.0-30.9,adult Z68.30 History of gestational hypertension Z87.59 History of hemorrhage, currently O09.299 Z34.90 Depression F32.9 Medical History Medical History Depression Prental History History 3 Para 1 Hx # Term Pregnancies 1 Multiple births 0 Hx # Pregnancies 0 Ectopic pregnancies 0 AB induced 0 Hx Number of Living Children 1 AB spontaneous 1 Past Pregnancies Del. Date GA/Weeks # Outcome Route Wgt Sex Labor Lgth Anesthesia Location [facility] 11/10/19 40 No Successful vaginal 3997.283 g Male 50+ hrs regional CNM at [facility] [place] In [facility] Delivery Date: 11/10/19 Saw midwives at [facility], labored there for 10 hrs transfered to hospital for HTN, augmented, epidural, labored 2 more days, , PPH of 900 ml, required 2 units PRBC's, Beatriz Camilo Vital Signs and Lab Results Vital Signs Most Recent Vital Signs in EMR: Most Recent Vital Signs Temp Pulse Resp BP Pulse Ox 37.1 C 100 H 22 125/65 98 08/12/21 23:30 08/13/21 04:17 08/12/21 23:30 08/13/21 04:03 08/13/21 04:17 Lab Results Result Diagrams: 08/13/21 03:20 Blood Type / Crossmatch: Patient ABO/Rh A Positive 08/13/21 00:35 08/13/21 Antibody Screen NEGATIVE 08/13/21 00:35 08/13/21 Complete Blood Count: White Blood Count 21.18 10^3/uL (4.4-10.8) H 08/13/21 03:20 08/13/21 Red Blood Count 2.91 10^6/uL (3.93-5.22) L 08/13/21 03:20 08/13/21 Hemoglobin 8.8 g/dL (11.2-15.7) L 08/13/21 03:20 08/13/21 Hematocrit 27.1 % (36.0-46.0) L 08/13/21 03:20 08/13/21 Platelet Count 181 10^3/uL (130-400) 08/13/21 03:20 08/13/21 Complete Metabolic Panel: Sodium Level 139 mmol/L (136-145) 07/31/21 16:20 07/31/21 Potassium Level 3.8 mmol/L (3.5-5.1) 07/31/21 16:20 07/31/21 Chloride Level 106 mmol/L (98-107) 07/31/21 16:20 07/31/21 Carbon Dioxide Level 23.1 mmol/L (21.0-32.0) 07/31/21 16:20 07/31/21 Blood Urea Nitrogen 10 mg/dL (7-18) 07/31/21 16:20 07/31/21 Creatinine 0.7 mg/dL (0.55-1.02) 07/31/21 16:20 07/31/21 Estimated GFR/1.73 m2 >= 60.00 (mL/min/1.73m2) 07/31/21 16:20 07/31/21 Calcium Level 8.8 mg/dL (8.5-10.1) 07/31/21 16:20 07/31/21 Albumin 2.6 g/dL (3.4-5.0) L 07/31/21 16:20 07/31/21 Glucose Level 80 mg/dL (74-106) 07/31/21 16:20 07/31/21 Liver Function Panel: Alanine Aminotransferase (ALT/SGPT) 14 U/L (14-59) 07/31/21 16:20 07/31/21 Aspartate Amino Transf (AST/SGOT) 16 U/L (15-37) 07/31/21 16:20 07/31/21 Coagulation Panel: No Data to Display Cardiac Panel: No Data to Display Arterial Blood Gas: No Data to Display Venous Blood Gas: No Data to Display Pancreas Panel: No Data to Display Thyroid Panel: No Data to Display Infectious Disease: Coronavirus (COVID-19)(PCR) Negative (Negative) 08/12/21 23:15 08/12/21 Coronavirus 2019 Source Nasal/Nares 08/12/21 23:15 08/12/21 Blood Cultures: No Data to Display Toxicology Panel: Urine Amphetamines Screen Negative (Negative) 07/19/21 15:05 07/19/21 Urine Benzodiazepines Screen Negative (Negative) 07/19/21 15:05 07/19/21 Urine Barbiturates Screen Negative (Negative) 07/19/21 15:05 07/19/21 Urine Cocaine Screen Negative (Negative) 07/19/21 15:05 07/19/21 Urine Methadone Screen Negative (Negative) 07/19/21 15:05 07/19/21 Urine Opiates Screen Negative (Negative) 07/19/21 15:05 07/19/21 Ur Tricyclic Antidepressants Screen Negative (Negative) 07/19/21 15:05 07/19/21 Ur Tetrahydrocannabinol (THC) Scrn Negative (Negative) 07/19/21 15:05 07/19/21 Panel: No Data to Display Anesthesia Assessment and Plan Anesthesia History Personal History: No History of Anesthesia Complications Family History: No Family History of Anesthesia Complications Exercise Tolerance Exercise Tolerance: Metabolic Equivalents>4 Pertinent Negatives Pertinent Negatives: No Major Cardiovascular Symptoms or Complaints, No Major Pulmonary Symptoms or Complaints and No History of CVA/TIA Cardiac & Pulmonary Exam Cardiac Exam: Normal S1/S2 Heart Sounds Pulmonary Exam: Clear Bilateral Breath Sounds Implantable Cardiac Device Does patient have a Pacemaker or an ICD?: No Airway Exam Known Difficult Airway: No Mallampati Class: 2 Mouth Opening: Normal (> 3cm) Thyromental Distance: Greater than 3 cm Neck Range of Motion: Full ROM Neck Circumference: Normal Teeth Condition: Normal Dentition ASA Classification ASA Score: ASA 2 Emergency Case?: Yes NPO Status NPO Status: Full Stomach (Just delivered and ate cheese) Status Status: Other (Immediately post ) Anesthesia Plan Resuscitation Status: Full Code Anesthesia Technique: General Anesthesia Airway Planned: Endotracheal Tube Monitors Used: Standard Monitors
[2021-08-13] MEDS: Lactated Ringers 1,000 ML 30 ML IV (04:52)
--- NOTE | 2021-08-13 05:07 | NUR.NOTE ---
Nursing Note: RN checked fundus at 0215 FFU but no lochia. Provider came to bedside and clots expressed. Provider massaging uterus and managing PPH. Fundal exam per RN at 0338 was FFU but again no lochia. Providers again at bedside providing fundal exam and managing PPH. Pt transferred to OR 0445.
--- NOTE | 2021-08-13 05:14 | ENDOMET_PTH ---
PATIENT: Michell Garrido LOC: OBS U#:[id number] AGE/SX: 31/F ROOM: OBS.307 RE08/13/[address]: Beatriz Scott CNM : 1990 BED: A DIS: 08/15/2021 SPEC #: [id number] RECD: 08/13/21 12:59 STATUS: MG REQ #: [id number] MADHU: 08/13/21 05:[address]: Beatriz Scott DEPT: Surgical Specimen RECD BY: Jazmine High ENTERED: 08/13/21 13:00 SP TYPE: Endomet OTHR DR: Jane Way Tissues: 1 - ENDOMETRIUM BX/JAIRONETTE Procedures: GROSS AND MICRO LEVEL 4 Comments: [id number]
[2021-08-13] MEDS: Carboprost 250 MCG/ML AMP (05:20)
--- NOTE | 2021-08-13 06:09 | W.PM.OP ---
Date of service: 08/13/21 Time of Service: 06:09 Operative Note Operative Note DATE OF PROCEDURE: 08/13/21 PRE-OP DIAGNOSIS: hemorrhage POST-OP DIAGNOSIS: same Retained amniotic membranes, cervical laceration PROCEDURE: Exam under anesthesia, uterine curettage, repair of cervical laceration ANESTHESIA TYPE: General LMA/ETT Refer to Anesthesia Record ESTIMATED BLOOD LOSS: 150 PATHOLOGY: none sent (Uterine contents) COMPLICATIONS: None Patient was transported to: PACU Patient's condition: stable Indications: hemorrhage with ongoing blood loss Findings: Retained amniotic membranes and cervical laceration at the 7 o'clock position Procedure Description: Patient was taken to the operating suite after full informed consent was obtained. She was placed in dorsal supine position and general anesthesia administered with ease. She was then placed in the modified dorsal lithotomy position and prepped and draped in the usual sterile fashion. Garcia catheter was inserted for continuous bladder drainage. Exam under anesthesia revealed a uterus that was somewhat bulky and clots noted in the lower uterine segment. With a sharp curettage and manual exploration of the uterine cavity there were noted to be membranes adherent to the anterior lower uterine segment which were meticulously dissected away and removed. Each second gentle sharp curettage was performed. At this point the uterus was firm. She did receive 1 dose of Hemabate 250 mcg IM x1 along with Pitocin intravenous infusion to maintain uterine tonicity. Speculum examination confirmed a small cervical laceration at the 7 o'clock position which was suture-ligated with 0 Vicryl suture and found to be hemostatic. After an appropriate observation period with uterine massage, uterus was firm and hemostatic. Speculum had been removed and the patient was returned to the dorsal supine position. She was taken recovery room in stable condition with a Garcia catheter draining slightly concentrated urine. Patient tolerated the procedure without difficulty.Patient was taken to the operating suite after full informed consent was obtained. She was placed in dorsal supine position and general anesthesia administered with ease. She was then placed in the modified dorsal lithotomy position and prepped and draped in the usual sterile fashion. Garcia catheter was inserted for continuous bladder drainage. Exam under anesthesia revealed a uterus that was somewhat bulky and clots noted in the lower uterine segment. With a sharp curettage and manual exploration of the uterine cavity there were noted to be membranes adherent to the anterior lower uterine segment which were meticulously dissected away and removed. Each second gentle sharp curettage was performed. At this point the uterus was firm. She did receive 1 dose of Hemabate 250 mcg IM x1 along with Pitocin intravenous infusion to maintain uterine tonicity. Speculum examination confirmed a small cervical laceration at the 7 o'clock position which was suture-ligated with 0 Vicryl suture and found to be hemostatic. After an appropriate observation period with uterine massage, uterus was firm and hemostatic. Speculum had been removed and the patient was returned to the dorsal supine position. She was taken recovery room in stable condition with a Garcia catheter draining slightly concentrated urine. Patient tolerated the procedure without difficulty. EBL: 150 mL Findings: Retained membranes, cervical laceration Complications: None apparent Fluids: Crystalloid per anesthesia Pathology: Uterine contents for examination, suspect retained membranes.
--- NOTE | 2021-08-13 06:23 | W.ANESPOSTOP ---
Postoperative Evaluation Date, Time and Location Date Performed: 08/13/21 Time Performed: 06:23 Patient Location: Obstetrics Vital Signs Most Recent Imported Vital Signs: Most Recent Vital Signs Temp Pulse Resp BP Pulse Ox 36.7 C 97 H 12 142/88 H 97 08/13/21 05:57 08/13/21 05:57 08/13/21 05:57 08/13/21 05:57 08/13/21 05:57 Pain Score Most Recent Pain Score: Most Recent Pain Score Pain Level 0 08/13/21 05:57 Assessment Mental Status: Awake (Alert & Oriented to Patient Baseline) Airway and Respiratory Function: Patent airway with normal (patient baseline) respiratory exam Cardiovascular Function: Hemodynamically Stable Hydration Status: Adequately Hydrated Nausea & Vomiting: No Nausea or Vomiting Pain: Pt. Denies Any Pain Peripheral Nerve Block: Patient did not receive a nerve block
[2021-08-13 07:20] LABS: HCT 25.4 % (36.0-46.0); HGB 8.2 g/dL (11.2-15.7); MCH 29.6 pg (27.0-33.0); MCHC 32.3 % (32.0-36.0); MCV 91.7 fL (80-95); MPV 11.4 fL (8.0-11.0); Platelet Count 179 10^3/uL (130-400); RBC 2.77 10^6/uL (3.93-5.22); RDW-SD 58.4 fL; WBC 19.58 10^3/uL (4.4-10.8)
[2021-08-13] MEDS: miSOPROStol 100 MCG TAB 600 MCG PO ×2 (12:45→20:15)
--- NOTE | 2021-08-13 17:41 | OBPPV_ITS ---
Date of service: 08/13/21 Time of Service: 17:41 Assessment and Plan Assessment and plan (1) hemorrhage, delivered: Status: Acute Assessment and plan: Pt is stable s/p PPH this am with D&C for removal of retained membranes. ~1500ml EBL. Plan to recheck H/H now. If still stable will plan for iron transfusion in the am. If dropped more significantly then will consider blood transfusion. Will remove liu and trial ambulating with assistance. Subjective Subjective Interval history: H/H was stable at 7:15am. Started diuresing this afternoon. Patient's Mood: Tired but doingok [place] baby status: Doing well, Nursing well and Rooming in [place] feeding status: Exclusively breast feeding Narrative: Pt is feeling much better. Tolerating PO intake. No dizziness but not OOB yet. Liu catheter still in place. Minimal bleeding and cramping. Exam Physical Exam Vital signs: Temp Pulse Resp BP Pulse Ox 98.7 F 103 H 16 128/92 H 98 08/13/21 17:00 08/13/21 17:00 08/13/21 17:00 08/13/21 17:00 08/13/21 09:40 Constitutional Constitutional: no acute distress and cooperative Detailed HEENT Exam Head: Present normocephalic and atraumatic Respiratory Exam Respiratory Exam: Normal Abdominal Exam Abdomen: Tender (mildly) Fundal Exam Fundus: Below Umbilicus and Firm Extremities Exam Extremity Exam: negative Calf Tenderness and Edema Detailed Neurological Exam Neurological: Present alert, oriented X3 and CN II-XII intact Results Hemoglobin/Hematocrit: Hgb 8.2 g/dL (11.2-15.7) L 08/13/21 07:15 Hct 25.4 % (36.0-46.0) L 08/13/21 07:15 Abnormal Lab Findings: Abnormal Labs 08/13/21 08/13/21 08/13/21 00:35 03:20 07:15 WBC 14.68 H 21.18 H D 19.58 H RBC 3.89 L 2.91 L 2.77 L Hgb 8.8 L D 8.2 L Hct 35.4 L 27.1 L D 25.4 L RDW 17.8 H 17.8 H 18.0 H MPV 11.3 H 11.7 H 11.4 H
[2021-08-13 18:01] LABS: HGB 6.7 g/dL (11.2-15.7)
[2021-08-13] MEDS: IRON SUCROSE COMPLEX 200 MG in Normal Saline 100 ML 400 MG IVPB (19:52)
--- NOTE | 2021-08-14 | DI.US_ITS ---
Exam(s) US LOWER EXTREMITY VENOUS RT EXAM: US LOWER EXTREMITY VENOUS RT CLINICAL HISTORY: Rule out DVT. TECHNIQUE: Ultrasound performed using standard protocol. COMPARISON: US US OB F/U FACIAL/LVOT/RVOT from 03/21/2021 FINDINGS: Duplex venous ultrasound was performed according to the usual protocol. The deep veins are freely com pressible throughout and there is normal flow augmentation with manual calf compression. 2D and Doppl er evaluation are unremarkable. IMPRESSION: No evidence of deep venous thrombosis of the right lower extremity. DATA REPOSITORY:
[2021-08-14 08:15] VITALS: BP 141/82; PULSE 78; RESP 18; TEMP 36.7; O2SAT 96
[2021-08-14 09:05] LABS: HCT 20.3 % (36.0-46.0)
--- NOTE | 2021-08-14 12:30 | W.PM.OBPNV1 ---
Date of service: 08/14/21 Time of Service: 12:30 Assessment and Plan Assessment and plan (1) hemorrhage, delivered: Status: Acute (2) Term of female : Status: Acute Assessment and plan: Routine post care (3) History of gestational hypertension: Status: Acute Assessment and plan: Will continue to monitor B.P. Subjective Subjective Patient comments: No complaints and Pain well controlled baby status: Doing well [place] feeding status: Exclusively breast feeding Narrative: Caring for baby independently. Pain is managed well with oral analgesics. Voiding without difficulty. well. She has been up to the bathroom without difficulty since last evening. She has not showered yet. She denies dizziness. Iron infusion ordered by Dr. Bowen yesterday. Delivered over intact perineum. A - stable mother and baby, S/P post hemorrhage with D and C procedure for retained membranes and repair of small cervical laceration. Post day 1 P - Discharge to home planned for tomorrow if Michell is stable and blood pressure is within normal limits. Routine post instructions. [facility] Exam Physical Exam Vital signs: Temp Pulse Resp BP Pulse Ox 98.1 F 78 18 141/82 H 96 08/14/21 08:15 08/14/21 08:15 08/14/21 08:15 08/14/21 08:15 08/14/21 08:15 Vital Signs Reviewed: Yes Constitutional Constitutional: no acute distress Respiratory Exam Respiratory Exam: Normal Cardiovascular Exam Cardiovascular Exam: Normal Fundal Exam Fundus: Below Umbilicus and Firm Rectal Exam Rectal Exam: Normal Exam Patient deferred: external exam External: Present normal urethra appearance; Absent swelling and ecchymosis Extremities Exam Extremity Exam: Normal Results Hemoglobin/Hematocrit: Hgb 6.7 g/dL (11.2-15.7) L* 08/13/21 17:45 Hct 20.3 % (36.0-46.0) L* D 08/13/21 17:45 Abnormal Lab Findings: Abnormal Labs 08/13/21 08/13/21 08/13/21 00:35 03:20 07:15 WBC 14.68 H 21.18 H D 19.58 H RBC 3.89 L 2.91 L 2.77 L Hgb 8.8 L D 8.2 L Hct 35.4 L 27.1 L D 25.4 L RDW 17.8 H 17.8 H 18.0 H MPV 11.3 H 11.7 H 11.4 H 08/13/21 17:45 WBC RBC Hgb 6.7 L* Hct 20.3 L* D RDW MPV
[2021-08-14 13:06] VITALS: BP 138/79; PULSE 90; RESP 18; TEMP 36.7; O2SAT 97
[2021-08-14 15:54] VITALS: BP 130/78; PULSE 91; RESP 18; TEMP 36.9; O2SAT 95
[2021-08-14] MEDS: Ibuprofen 600 MG TAB PO (17:34)
--- NOTE | 2021-08-14 17:39 | OBPPV_ITS ---
Date of service: 08/14/21 Time of Service: 17:39 Assessment and Plan Assessment and plan (1) Right thigh pain: Status: Acute Assessment and plan: right leg ultrasound ordered. The dining room hostess will be in this evening and I will request a stat US if possible. Plan reviewed with Dr. Bateman who agrees. (2) hemorrhage, delivered: Status: Acute Subjective Subjective Interval history: Michell reports pain in upper, inner thigh that she has had since yesterday but it is worsening this evening. She experiences tingling in the bottom of her foot when she first stands up and it stops after walking. She has pain along her inner thigh between the muscles. It feels better with massage and stretching Exam Physical Exam Vital signs: Temp Pulse Resp BP Pulse Ox 98.4 F 91 H 18 130/78 95 08/14/21 15:54 08/14/21 15:54 08/14/21 15:54 08/14/21 15:54 08/14/21 15:54 Extremities Exam Extremity Exam: Normal; negative Calf Tenderness, Cold to Touch, Edema, Redness and Warm to Touch Comment: negative lucas's sign. Results Hemoglobin/Hematocrit: Hgb 6.7 g/dL (11.2-15.7) L* 08/13/21 17:45 Hct 20.3 % (36.0-46.0) L* D 08/13/21 17:45 Abnormal Lab Findings: Abnormal Labs 08/13/21 08/13/21 08/13/21 00:35 03:20 07:15 WBC 14.68 H 21.18 H D 19.58 H RBC 3.89 L 2.91 L 2.77 L Hgb 8.8 L D 8.2 L Hct 35.4 L 27.1 L D 25.4 L RDW 17.8 H 17.8 H 18.0 H MPV 11.3 H 11.7 H 11.4 H 08/13/21 17:45 WBC RBC Hgb 6.7 L* Hct 20.3 L* D RDW MPV
--- NOTE | 2021-08-14 20:09 | DI.VRAD_ITS ---
PROCEDURE INFORMATION: Exam: US Duplex Right Lower Extremity Veins, Limited Exam date and time: 08/14/2021 5:39 PM Age: 31 years old Clinical indication: Leg, lower; Right; Patient HX: 1 day post-. RT medial thigh pain. TECHNIQUE: Imaging protocol: Real-time Duplex ultrasound of the Right Lower Extremity with 2-D sánchez scale, color Doppler flow and spectral waveform analysis with image documentation. Limited exam was focused on the right lower extremity veins. COMPARISON: US OB F/U FACIAL/LVOT/RVOT 03/21/2021 1:13 PM FINDINGS: Right deep veins: Unremarkable. The common femoral, femoral, proximal profunda femoral and popliteal veins are patent without thrombus. Normal Doppler waveforms. Normal compressibility and/or augmentation response. Right superficial veins: Unremarkable. Saphenofemoral junction is patent without thrombus. Soft tissues: Unremarkable. IMPRESSION: No evidence for DVT. Dictated and Authenticated by: Janene Lee MD. Ordering:MARITA Henderson MD
[2021-08-14 20:25] VITALS: BP 139/81; PULSE 83; RESP 18; TEMP 36.9
[2021-08-14] MEDS: Acetaminophen 325 MG TAB 650 MG PO (21:46)
--- NOTE | 2021-08-14 21:51 | NUR.NOTE ---
tatiana de la torre called and reported the us was negative and asked me to tell the patient her resultsNursing Note:
[2021-08-15 02:00] VITALS: BP 129/68; PULSE 81; RESP 18; TEMP 36.6
[2021-08-15] MEDS: Ibuprofen 600 MG TAB PO (02:05)
[2021-08-15 08:30] VITALS: BP 143/86; PULSE 100; RESP 18; TEMP 37
--- NOTE | 2021-08-15 10:43 | OBPPV_ITS ---
Date of service: 08/15/21 Time of Service: 10:43 Assessment and Plan Assessment and plan (1) Term delivered: Status: Acute Assessment and plan: A: PPD#2, nml recovery PP anemia, s/p PPH, asymptomatic going well P: Desires discharge today Will have weekly iron infusions until hgb >11 F/up in 2 & 6 wks Written instructions reviewed and given to pt (2) hemorrhage, delivered: Status: Acute (3) History of gestational hypertension: Status: Acute Subjective Subjective Patient comments: No complaints, Pain well controlled, Tolerating diet and Flatus present [place] baby status: Doing well, Nursing well, Rooming in and Strong Bonding Observed feeding status: Exclusively breast feeding Exam Physical Exam Vital signs: Temp Pulse Resp BP Pulse Ox 98.6 F 100 H 18 143/86 H 95 08/15/21 08:30 08/15/21 08:30 08/15/21 08:30 08/15/21 08:30 08/14/21 15:54 Vital Signs Reviewed: Yes Constitutional Constitutional: no acute distress HEENT Exam HEENT Exam: Normal Neck Exam Neck Exam: Normal Breast Exam Bilateral: Breast Exam: Normal and Soft Nipple Exam: Normal and Uninjured Respiratory Exam Respiratory Exam: Normal Cardiovascular Exam Cardiovascular Exam: Normal Abdominal Exam Abdomen: Other (soft, nontender) Fundal Exam Fundus: Below Umbilicus and Firm Rectal Exam Rectal Exam: Normal Exam Perineum: Intact Extremities Exam Extremity Exam: Normal Back/Spine/Pelvis Exam Back Exam: Normal Skin Exam Skin Exam: Normal Neurological Exam Neurological Exam: Normal Psychiatric Exam Psychiatric Exam: Normal Results Hemoglobin/Hematocrit: Hgb 6.7 g/dL (11.2-15.7) L* 08/13/21 17:45 Hct 20.3 % (36.0-46.0) L* D 08/13/21 17:45
--- NOTE | 2021-08-15 10:51 | DSE_ITS ---
Date of service: 08/15/21 Time of Service: 10:51 DS: Diagnosis Discharge Diagnosis (1) Term delivered: Status: Acute (2) hemorrhage, delivered: Status: Acute (3) History of gestational hypertension: Status: Acute Discharge Plan Disposition Patient Disposition: HOME Condition: Good Discharge Details Reason For Visit: Rule Out Labor Admit Date/Time: 08/12/21 22:17 Admit Provider: Beatriz Scott Attending Provider: Beatriz Scott Primary Care Provider: Jane [facility] Course Hospital Course: after spontaneous labor, hemorrhage, D&C for retained membranes and cvx lac repair, nml recovery with mild range BP readings, anemia without symptoms Home Meds and New Rx's Prescriptions: No Action prenat.vits,zhou,[id number] Tablet 1 tab PO DAILY RF: 0 cholecalciferol (vitamin D3) [Vitamin D3] 10 mcg (400 unit) tablet,chewable 2,000 unit PO DAILY RF: 0 iron sucrose 200 mg iron/10 mL solution 200 mg IV ONCE Qty: 10 RF: 0 Discharge Instructions Additional Instructions: Continue weekly iron infusions until Hgb is >11, next infusion is due Monday 08/20, please see your youth specialist at 2 & 6 wks , call for any and all concerns or questions. Stand Alone Forms: BC Instructions, BC Post Vaginal Deliver Activity:: Activity as Tolerated Equipment/Supplies:: No Equipment Needed Diet:: Normal Diet Discharge Orders Discharge Orders: Discharge Order (Routine); Ordered 08/15/21 Ordered By: Claire Zurita OB:DS Summary Summary Vaginal Delivery Method: Spontaneaous Episiotomy Description: None Laceration Description: None Laceration Extension: N/A Contraception Discussed Contraception Discussed: Yes Contraceptive Plan: Undecided, Gender-Baby A: Female Status at Discharge Functional status at discharge: independent ambulation Overall status at discharge: patient is progressing back to baseline Mental Status: mental status grossly normal Speech and Movement: speech and movement normal Mood: congruent mood Affect: normal affect Exam Physical Exam Vital signs: Temp Pulse Resp BP Pulse Ox 98.6 F 100 H 18 143/86 H 95 08/15/21 08:30 08/15/21 08:30 08/15/21 08:30 08/15/21 08:30 08/14/21 15:54 Vital Signs Reviewed: Yes Constitutional Constitutional: no acute distress HEENT Exam HEENT Exam: Normal Neck Exam Neck Exam: Normal Breast Exam Bilateral: Breast Exam: Normal and Soft Respiratory Exam Respiratory Exam: Normal Cardiovascular Exam Cardiovascular Exam: Normal Abdominal Exam Abdomen: Other (soft, nontender) Fundal Exam Fundus: Below Umbilicus and Firm Rectal Exam Rectal Exam: Normal Exam Perineum: Intact Extremities Exam Extremity Exam: Normal Back/Spine/Pelvis Exam Back Exam: Normal Skin Exam Skin Exam: Normal Neurological Exam Neurological Exam: Normal Psychiatric Exam Psychiatric Exam: Normal [facility] Medical History Depression Family History Father Diabetes Hypertension Social History Smoking risk assessment performed?: No Female Reproductive History Menstrual control method: none History History 3 Para 1 Hx # Term Pregnancies 1 Multiple births 0 Hx # Pregnancies 0 Ectopic pregnancies 0 AB induced 0 Hx Number of Living Children 1 AB spontaneous 1 Past Pregnancies Del. Date GA/Weeks # Outcome Route Wgt Sex Labor Lgth Anesthes ia Location Prov Complic 11/10/19 40 No Successful vaginal 8 lb 13 oz Male 48+ hrs regional CNM at [facility] [place] In [facility] Delivery Date: 11/10/[address] [facility], labored there for 10 hrs transfered to hospital for HTN, augmented, epidural, labored 2 more days, , PPH of 900 ml, required 2 units PRBC's, Beatriz Camilo DS: Data Vitals/I&O Vitals and I&O: Vital Signs Temperature 98.6 F 08/15/21 08:30 Pulse 100 H 08/15/21 08:30 Pulse Rhythm Regular 08/15/21 08:30 Respiratory Rate 18 08/15/21 08:30 Respiratory Effort 08/13/21 00:01 Respiratory Depth Normal 08/13/21 16:57 Respiratory Pattern Normal 08/13/21 00:01 Blood Pressure 143/86 H 08/15/21 08:30 Blood Pressure Mean 105 08/15/21 08:30 Pulse Oximetry 95 08/14/21 15:54 Respiratory End-tidal CO2 33 08/13/21 05:57 Oxygen Delivery Method Room Air 08/13/21 05:57 Oxygen Flow Rate 0 08/13/21 05:57 Pain Level 0 08/15/21 08:30
== END 2021-08-15 12:05 | disposition home or self-care (01) | DRG 768 ==
PROVIDERS: Advanced Practice Midwife; Obstetrics & Gynecology; Admitting Provider Advanced Practice Midwife; PCP Nurse Practitioner Community Health; Visit Provider Advanced Practice Midwife
PROC: 0UQC7ZZ Repair Cervix, Via Natural or Artificial Opening (ICD-10-PCS; CPT 59160; principal; 2021-08-13 04:30)
DX: O13.4 Gestational [pregnancy-induced] hypertension without significant proteinuria, complicating childbirth (principal); Z37.0 Single live birth; O99.344 Other mental disorders complicating childbirth; O72.2 Delayed and secondary postpartum hemorrhage; O71.3 Obstetric laceration of cervix; F32.A Depression, unspecified; Z3A.38 38 weeks gestation of pregnancy; O90.81 Anemia of the puerperium; D50.0 Iron deficiency anemia secondary to blood loss (chronic)
CPT/HCPCS: 59160; 57720; 36415; 85027; 86850; 86900; 86901; 87635; 88305; 96368; 85014; 85018; 93971; J1100; J1756; J2210; J2405; J2704; J3010; J3490

== ENCOUNTER 2021-08-27 01:41 | Outpatient (RCR) | payer OTHER, SELFPAY ==
[2021-08-03] MEDS: IRON SUCROSE COMPLEX 200 MG in Normal Saline 100 ML 440 MG IVPB (14:21)
[2021-08-03] MEDS: Normal Saline Flush 10 ML SYR IVP (14:23)
[2021-08-10] MEDS: Normal Saline Flush 10 ML SYR IVP (13:41)
[2021-08-10 13:51] LABS: HGB 10.4 g/dL (11.2-15.7)
[2021-08-10] MEDS: IRON SUCROSE COMPLEX 200 MG in Normal Saline 100 ML 440 MG IVPB (14:19)
[2021-08-20 12:24] LABS: HGB 9.3 g/dL (11.2-15.7)
[2021-08-20] MEDS: IRON SUCROSE COMPLEX 200 MG in Normal Saline 100 ML 440 MG IVPB (12:49)
[2021-08-20] MEDS: Normal Saline Flush 10 ML SYR IVP (12:50)
[2021-08-27] MEDS: Normal Saline Flush 10 ML SYR IVP (13:03)
[2021-08-27 13:19] LABS: HGB 9.6 g/dL (11.2-15.7)
[2021-08-27] MEDS: IRON SUCROSE COMPLEX 200 MG in Normal Saline 100 ML 440 MG IVPB (13:39)
== END 2021-08-28 23:59 | disposition home or self-care (01) ==
LOC: INF 01:41
PROVIDERS: PCP Nurse Practitioner Community Health; Visit Provider Advanced Practice Midwife
DX: O90.81 Anemia of the puerperium (principal); D62 Acute posthemorrhagic anemia
CPT/HCPCS: 36415; 96365; 85018; J1756

== ENCOUNTER 2021-09-13 02:11 | Outpatient (RCR) | payer OTHER, SELFPAY ==
[2021-09-03 12:58] LABS: HGB 10.6 g/dL (11.2-15.7)
[2021-09-03] MEDS: IRON SUCROSE COMPLEX 200 MG in Normal Saline 100 ML 440 MG IVPB (13:25)
[2021-09-03] MEDS: Normal Saline Flush 10 ML SYR IVP (13:26)
[2021-09-13] MEDS: Normal Saline Flush 10 ML SYR IVP (12:51)
== END 2021-09-28 23:59 | disposition home or self-care (01) ==
LOC: INF 02:11
PROVIDERS: PCP Nurse Practitioner Community Health; Visit Provider Advanced Practice Midwife
DX: O90.81 Anemia of the puerperium (principal); D62 Acute posthemorrhagic anemia
CPT/HCPCS: 36415; 96365; 85018; J1756

== ENCOUNTER 2021-10-10 03:11 | Outpatient (CLI) | payer OTHER, SELFPAY | END 2021-10-10 03:12 | disposition home or self-care (01) | LOC: LBO 03:11 | PROVIDERS: PCP Nurse Practitioner Community Health; Visit Provider Advanced Practice Midwife ==

== ENCOUNTER 2021-10-23 10:39 | Outpatient (REF) | payer OTHER, SELFPAY ==
[2021-10-23 15:52] LABS: HCT 41.8 % (36.0-46.0)
[2021-10-23 15:54] LABS: ESR 39 mm/hr (0-20)
[2021-10-23 16:26] LABS: Iron 65 ug/dL (50-170); Total Iron Binding Capacity 273 ug/dL (250-450); Transferrin Sat 24 % (15-50)
[2021-10-23 21:56] LABS: Rheumatoid Factor <8.6 IU/mL (<12.0)
[2021-10-24 14:47] LABS: ANA Interpretation Negative (Negative)
== END 2021-10-23 10:40 | disposition home or self-care (01) ==
LOC: NCHCN 10:39
PROVIDERS: PCP Nurse Practitioner Community Health; Visit Provider Nurse Practitioner Family
DX: D64.9 Anemia, unspecified (principal); M25.59 Pain in other specified joint
CPT/HCPCS: 85652; 83540; 83550; 85014; 85018; 86038; 86140; 86431

== ENCOUNTER 2022-03-14 04:02 | Outpatient (CLI) | payer OTHER, SELFPAY ==
[2022-03-14 12:01] LABS: Abs Immature Grans 0.02 10^3/uL (0.0-0.06); Absolute Basophil Count 0.02 10^3/uL (0.0-0.2); Absolute Eosinophil Count 0.04 10^3/uL (0.0-0.7); Absolute Lymphocyte Count 2.07 10^3/uL (1.2-3.4); Absolute Monocyte Count 0.53 10^3/uL (0.1-0.8); Absolute Neutrophil Count 5.93 10^3/uL (1.2-6.7); Basophils % 0.2; Eosinophils % 0.5; HCT 39.1 % (36.0-46.0); HGB 12.8 g/dL (11.2-15.7); Immature Grans % 0.2; MCH 30.3 pg (27.0-33.0); MCHC 32.7 % (32.0-36.0); MCV 92 fL (80-95); MPV 11.8 fL (8.0-11.0); Monocytes % 6.2; Neutrophils % 68.9; Platelet Count 188 10^3/uL (130-400); RBC 4.23 10^6/uL (3.93-5.22); RDW 13.2 % (11.7-14.6); RDW-SD 45.1 fL; WBC 8.61 10^3/uL (4.4-10.8)
[2022-03-14 12:51] LABS: Glucose,1 Hr (Glucola) 109 mg/dL (80-140)
[2022-03-14 16:29] LABS: *AMPHETAMINES SCREEN URINE Negative (Negative); *BARBITURATES SCREEN URINE Negative (Negative); *BENZODIAZEPINES SCREEN URINE Negative (Negative); Cannabinoids THC Negative (Negative); Cocaine Screen,Urine Negative (Negative); METHADONE URINE SCREEN Negative (Negative); OPIATES URINE SCREEN Negative (Negative)
[2022-03-14 16:52] LABS: Tricyclic Antidepressants Negative (Negative)
[2022-03-14 18:43] LABS: FREE T4 1.22 ng/dL (0.76-1.46)
[2022-03-15 09:33] LABS: Hepatitis B Surface Ag Negative (Negative)
[2022-03-15 09:59] LABS: HIV-1/2 Ag & Ab Screen Negative (Negative)
[2022-03-15 10:15] LABS: Varicella IgG Antibody Negative (See Note)
[2022-03-15 10:19] LABS: Hepatitis C Ab w Rflx HCV PCR Negative (Negative)
[2022-03-15 10:20] LABS: Rubella IgG Ab (UVM) Positive (See Note)
[2022-03-15 15:06] LABS: Chlamydia Result Negative (Negative); GC Result Negative (Negative)
[2022-03-15 22:06] LABS: Syphilis IgG w/Reflex Nonreactive (Nonreactive)
[2022-03-21 14:57] LABS: Buprenorphine Negative ng/mL (Cutoff: 5.0); Norbuprenorphine Negative ng/mL (Cutoff: 2.5)
== END 2022-03-14 04:03 | disposition home or self-care (01) ==
LOC: LBO 04:02
PROVIDERS: Advanced Practice Midwife; PCP Nurse Practitioner Community Health; Visit Provider Advanced Practice Midwife
DX: Z34.91 Encounter for supervision of normal pregnancy, unspecified, first trimester (principal); Z3A.10 10 weeks gestation of pregnancy
CPT/HCPCS: 80307; 82950; 86787; 86803; 86850; 86900; 86901; 87340; 87389; 87491; 87591; 84439; 84443; 85025; 86762; 86780; 87086

== ENCOUNTER 2022-03-14 17:45 | Outpatient (REF) | payer OTHER, SELFPAY | END 2022-03-14 17:46 | disposition home or self-care (01) | LOC: LBN 17:45 | PROVIDERS: PCP Nurse Practitioner Community Health; Visit Provider Advanced Practice Midwife ==

== ENCOUNTER 2022-07-16 03:35 | Outpatient (CLI) | payer OTHER, SELFPAY ==
[2022-07-16 09:21] LABS: HGB 11.1 g/dL (11.2-15.7); MCH 31.2 pg (27.0-33.0); MCHC 33.6 % (32.0-36.0); MCV 93 fL (80-95); MPV 10.9 fL (8.0-11.0); Platelet Count 170 10^3/uL (130-400); RBC 3.56 10^6/uL (3.93-5.22); RDW 13.5 % (11.7-14.6); RDW-SD 46.2 fL; WBC 8.75 10^3/uL (4.4-10.8)
[2022-07-16 09:47] LABS: Glucose,1 Hr (Glucola) 129 mg/dL (80-140)
[2022-07-16 10:00] LABS: TSH (W/Ref FT4) 0.44 uIU/mL (0.36-3.74)
== END 2022-07-16 03:36 | disposition home or self-care (01) ==
LOC: LBO 03:35
PROVIDERS: PCP Nurse Practitioner Community Health; Visit Provider Advanced Practice Midwife
DX: O99.283 Endocrine, nutritional and metabolic diseases complicating pregnancy, third trimester (principal); E03.9 Hypothyroidism, unspecified; O26.893 Other specified pregnancy related conditions, third trimester; R79.89 Other specified abnormal findings of blood chemistry; Z3A.28 28 weeks gestation of pregnancy
CPT/HCPCS: 36415; 82950; 85027; 84443

== ENCOUNTER 2022-09-12 14:45 | Outpatient (REF) | payer OTHER, SELFPAY ==
[2022-09-12 15:49] LABS: *AMPHETAMINES SCREEN URINE Negative (Negative); *BARBITURATES SCREEN URINE Negative (Negative); *BENZODIAZEPINES SCREEN URINE Negative (Negative); Cannabinoids THC Negative (Negative); Cocaine Screen,Urine Negative (Negative); METHADONE URINE SCREEN Negative (Negative); OPIATES URINE SCREEN Negative (Negative)
[2022-09-12 15:50] LABS: Tricyclic Antidepressants Negative (Negative)
== END 2022-09-12 14:46 | disposition home or self-care (01) ==
LOC: LBN 14:45
PROVIDERS: PCP Nurse Practitioner Community Health; Visit Provider Advanced Practice Midwife
DX: Z34.93 Encounter for supervision of normal pregnancy, unspecified, third trimester (principal)
CPT/HCPCS: 80307; 87081

== ENCOUNTER → 2022-09-19 01:01 | Outpatient (CLI) | payer OTHER, SELFPAY ==
--- NOTE | 2022-09-19 07:45 | DI.US_ITS ---
Exam(s) US OB NIDIA WEIGHT EXAM: US OB NIDIA WEIGHT CLINICAL HISTORY: growth follow up, at 94% at anatomy US,O26.849. TECHNIQUE: Transabdominal obstetrical ultrasound performed. COMPARISON: US US OB 2-3 TRIMESTER from 05/27/2022 FINDINGS:: Number of fetuses: One. position: Vertex. Placental location: Anterior no evidence of previa. BIOMETRIC DATA: BPD: 99mm = 40 +5 weeks HC: 360mm = 42+ 0 weeks AC: 379mm = 41+ 6 weeks FL: 77 mm = 39+ 2 weeks EFW: 4361 Gms = above the 97th percentile.% Composite Age: 40+ 4 weeks EDC: 15 September 2022 Heart Rate: 126BPM Amniotic fluid index: 17.9 cm. Amount of fluid is visually within normal limits. IMPRESSION: size and weight are greater than the expected range, large for gestational age. DATA REPOSITORY:
== END ==
PROVIDERS: PCP Nurse Practitioner Community Health; Visit Provider Advanced Practice Midwife
DX: O26.843 Uterine size-date discrepancy, third trimester (principal)
CPT/HCPCS: 76816

== ENCOUNTER 2022-09-26 01:55 | Outpatient (RCR) | payer OTHER, MEDICAID, SELFPAY ==
[2022-09-26] MEDS: Normal Saline Flush 10 ML SYR IVP (10:04)
[2022-09-26] MEDS: IRON SUCROSE COMPLEX 200 MG in Normal Saline 100 ML 440 MG IVPB (10:04)
== END 2022-09-28 23:59 | disposition home or self-care (01) ==
LOC: INF 01:55
PROVIDERS: PCP Nurse Practitioner Community Health; Visit Provider Advanced Practice Midwife
DX: O99.013 Anemia complicating pregnancy, third trimester (principal)
CPT/HCPCS: 96365; J1756

== ENCOUNTER 2022-10-01 20:32 | Inpatient (IN) | payer MEDICAID, SELFPAY ==
[2022-10-01 20:36] VITALS: BP 148/70; PULSE 86; RESP 18; TEMP 36.6
[2022-10-01 20:37] VITALS: BP 148/70; PULSE 86; RESP 18; TEMP 36.6
[2022-10-01 20:52] LABS: Source Nasal/Nares
[2022-10-01 20:54] LABS: HCT 33.3 % (36.0-46.0); MCH 30.3 pg (27.0-33.0); MCV 92 fL (80-95); MPV 11.1 fL (8.0-11.0); Platelet Count 186 10^3/uL (130-400); RBC 3.63 10^6/uL (3.93-5.22); RDW 16.2 % (11.7-14.6); RDW-SD 54.1 fL
--- NOTE | 2022-10-01 21:12 | HPE_ITS ---
Date of service: 10/01/22 Time of Service: 21:12 Assessment and Plan Assessment and plan (1) Uterine contractions: Status: Acute Assessment and plan: 1. due to rapid labor last delivery patient prefers to remain as inpatient for continued assessment and delivery 2. FHR tracing CAT I will allow for doppler assessment 3. CBC, type and screen and COVID swab done 4. Declines IV until after baby if needed, will agree to IM pitoin, methergine or PO/VA misoprostol for prevention of PPH 5. Anticipate NVD. KH OB-HPI Labor/Delivery History of Present Illness Reason for Visit: Labor Chief Complaint: Uterine Contractions. KENNETH Calculator Estimated Delivery Date Method Current WG Current Estimate 10/07/22 Ultrasound #2 39w 1d Other Estimates 09/11/22 LMP (Uncertain) 42w 6d 10/12/22 Ultrasound #1 38w 3d Comments: Chantal present for labor. States she has been having contractions all day but that they became more regular at 1930. Denies ROM or show. Baby has been active. She is working well with her contractions and prefers quiet and solitude. She has her Ring Spinner with her for support as well. LAURA History of Present Expected Delivery Route/Plan - CNM FOB/ - Jacques Garrido (third child together) Doesn't know gender, if male no circ, Varicella Non-Immune, offer vaccine Pt aware of advisability of IV access during labor, prefers no IV until immediate Agreeable to IM injection of Pit, methergine & miso while access is established GBS negative Labor support Jacques and Orlando Min Specific Issues/Plan 1. PPH d/t laceration with blood transfusion after first . Retained membranes with second requiring D&C. 2. Short interval (conceived @ 5 months PP) 3. History of gestational hypertension first - was on Nifedipine for a week or so PP - 3a. Proteinuria without hypertension, second trimester, ASA daily at 12 weeks recommended 3b. At 18 wks, pt has not begun low dose ASA, encouraged to start now, she declines. 4. Hx depression, took Wellbutrin briefly without relief, current depression- referral to [facility] 4a. Receiving home visits from previous with Waleska Reed RN 5. Previously neg CF/SMA carrier screening. declines quad screen or panorama test. 6. History of problems from tongue tie, was able to nurse x10 mo w/formula supplement. Took supplements 6a. Second baby, - had low production - stopped after 4 months. Would like to try again. 7. BMI 31 - early GTT-109, GTT at 28 weeks - 129 8. Has been fully vaccinated against COVID, is vaccinated too 9. History of low TSH - TSH-0.10, T4 1.22, repeat at 28 weeks ordered 07/05/22: TSH - 0.44 ( WNL) 10. Varicella non immune, discussed PP vaccine 11. Referral to [facility] for interrmittent depression, appt done 05/09/22 12. Anatomy US normal but 94%, consider growth US third trimester ordered 07/05/22 13. COVID + 07/09 reported 3 days after start of symptoms, will use OTC meds Review of Systems All systems reviewed & are unremarkable except as noted in HPI and below PFSH All Active Problems (Updated 10/01/22 @ 21:20 by Beatriz Scott CNM) Uterine contractions (Acute) COVID-19 affecting in second trimester (Acute) + 07/09/22 symptom onset 07/06/22 Marijuana use (Acute) stopped use during (Acute) ADHD (Acute) Maternal varicella, non-immune (Acute) BMI 30.0-30.9,adult (Acute) (Acute) Depression (Chronic) Medical History History of gestational hypertension History of hemorrhage, currently Low TSH level Nml TSH on f/up blood draw Uterine size date discrepancy Family History Father Diabetes Hypertension Maternal Grandfather Cancer leukemia Social History Smoking/Tobacco Use Status: Never Smoking risk assessment performed?: Yes Alcohol Intake: never Substance use type: does not use Do you feel safe at home: Yes Do you feel safe in your relationship?: Yes Female Reproductive History Menstrual control method: none History History 4 Para 2 Hx # Term Pregnancies 2 Multiple births 0 Hx # Pregnancies 0 Ectopic pregnancies 0 AB induced 0 Hx Number of Living Children 2 AB spontaneous 1 Past Pregnancies Del. Date GA/Weeks # Preg Succ Route Wgt Sex Labor Lgth Anesth esia Location Prov Complic 11/10/19 40 No Yes vaginal 8 lb 13 oz Male 48+ hrs regional CNM at [facility] In [facility] hemorrhage 08/13/21 40 No Yes vaginal 8 lb 15 oz Female 5 hr labor [place], CNM hemorrhage Delivery Date: 11/10/19 Last Updated by: Genna Zurita [facility], labored 10 hrs & transfered to hospital for HTN, augmented, epidural, labored 2 more days, , PPH of 900 ml, required 2 units PRBC's, [place] Delivery Date: 08/13/21 Last Updated by: Genna Zurita Rapid labor, Stadol for pain x1, D&C by ROHAN for retained fragment; QBL 1600, no transfusion, Melinda Meds Allergies and Home Medications Allergies Allergy/AdvReac Type Severity Reaction Status Date / Time No Known Allergies Allergy Verified 10/01/22 21:17 Home Medications Medication Instructions Recorded Confirmed Type prenat.vits,zhou,[id number] 1 tab PO DAILY 01/02/21 09/26/22 History cholecalciferol (vitamin D3) 10 2,000 unit PO DAILY 06/22/21 09/26/22 History mcg (400 unit) chewable tablet (Vitamin D3) ferrous gluconate 225 mg (27 mg 225 mg PO DAILY 05/09/22 09/26/22 History iron) tablet (Fergon) magnesium 250 mg tablet 250 mg PO DAILY 07/05/22 09/26/22 History mecobalamin (vitamin B12) 1,000 1,000 mcg PO DAILY 07/05/22 09/26/22 History mcg chewable tablet Exam Physical Exam Vital signs: Temp Pulse Resp BP 97.8 F 86 18 148/70 H 10/01/22 20:37 10/01/22 20:37 10/01/22 20:37 10/01/22 20:37 Vital Signs Reviewed: Yes Constitutional Constitutional: no acute distress and obese Detailed Labor and Delivery Exam Dilation: 3 Effacement (%): 50 station: -2 Cervix position: posterior Consistency: soft Rivera Score: Cervical Points Exam 0 1 2 3 Dilation Closed 1-2cm 3-4 cm 5-6cm Effacement 0-30% 40-50% 60-70% 80% Consistency Firm Medium Soft Station -3 -2 -1,0 +1,+2 Position Posterior Mid Anterior RIVERA Score(Cervical Ripeness Score): 6 Amniotic Membrane Status: Intact Contraction Frequency(min): 3-5 Contraction Duration(sec): 50-90 Contraction Intensity: Mild/Moderate Fetus A Heart Rate Baseline: 120 Monitor Accelerations: 15 X 15 Monitor Decelerations: None Variability: Moderate (6-25 BPM) Categories: Category I Est. Weight: 9 lb HEENT Exam HEENT Exam: Normal Neck Exam Neck Exam: Normal (normal visual exam) Chest/Brest/Axilla Exam Chest Exam: Normal Breast Exam Breast Exam: Not Done Respiratory Exam Respiratory Exam: Normal Cardiovascular Exam Cardiovascular Exam: Normal Abdominal Exam Abdominal Exam: Normal (gravid size slightly larger than dates) Rectal Exam Rectal Exam: Not Done Exam Exam: Normal Extremities Exam Extremities Exam: Normal Back/Spine/Pelvis Exam Back Exam: Normal Pelvis Adequate: Yes Skin Exam Skin Exam: Normal Neurological Exam Neurological Exam: Normal Psychiatric Exam Psychiatric Exam: Normal Results Results Group Beta Strep: Negative Blood Type: A+ Rubella Status: Immune Varicella Immunity: Nonimmune Lab Results: Hep B&C neg, HIV neg, GC CT neg, CF and SMA neg, declined cfDNA or QUAD, Syphilis neg, 1 hour 109 in early and 129 at 28 weeks. Abnormal Lab Findings: Abnormal Labs 10/01/22 20:45 RBC 3.63 L Hgb 11.0 L Hct 33.3 L RDW 16.2 H MPV 11.1 H Risk Assessment Risk for Shoulder Dystocia Historical/Initial OB: POSITIVE FOR: Pre- BMI>30; NEGATIVE FOR: Pelvic Abnormality, Previous Shoulder Dystocia or Previous Macrosomia 40 Weeks: NEGATIVE FOR: EFW> 4500 gms, Maternal Weight Gain >40lb or Post Dates Counseling: proven to 8'3 Delivery Plan @ 36wks: spont labor, Delivery Plan @ 40 wks: NVD expected Risk for Pre-Eclampsia Date Initiated/Initials: KM 03/14/22; Pt has not started @ 18 wks, advised to begin. jk Yes, if one or more: POSTIVE FOR: Hx Pre-E/Gest HTN; NEGATIVE FOR: Chronic HTN, Multiple Gestation, Pre-gestational DM, Renal Disease, Systemic Lupus or APA Syndrome Yes, if 2 or more: POSITIVE FOR: BMI>30; NEGATIVE FOR: Nulliparity, Age>= 35 yrs, >10yr btwn pregnancies, ethinicty, Mother/Sister w/ Pre-E or Previous IUGR Risk for Post- Hemorrhage Initial: POSITIVE FOR: Previous PPH; NEGATIVE FOR: Multiple Gestation, Known Clotting Deficiency, Grand Multiparity or Anticoagulation At Risk?: Yes Interventions: PPH x2, pt aware of increased risk, plan stop low dose ASA at 37 wks, IV access during labor Counseled re: Active Management: Yes Date/Initials: 10/01/22 KH Risks Reviewed Risks Reviewed Upon Admission: Yes
[2022-10-01] MEDS: Calcium Carbonate *TUMS* 500 MG CHEW 1000 MG PO (21:29)
[2022-10-01 21:34] LABS: COVID-19 PCR Negative (Negative)
[2022-10-01 22:13] VITALS: BP 132/82; PULSE 78
[2022-10-01 22:16] VITALS: BP 132/86; PULSE 86; RESP 18; TEMP 36.6
[2022-10-01 23:48] VITALS: BP 137/71; PULSE 85
[2022-10-02] VITALS (14 sets, daily range): BP systolic 112–185; BP diastolic 63–94; PULSE 73–91; RESP 16–18; TEMP 36.4–37; O2SAT 95–99
--- NOTE | 2022-10-02 00:25 | W.PM.OBNL1 ---
Date of service: 10/02/22 Time of Service: 00:01 Pelvic Exam Comments: VE deferred Contractions Monitor Mode: Palpation Contraction Frequency(min): 3-5 Contraction Duration(sec): 50-70 Intensity: Mild/Moderate Fetus A Monitor: Doppler Heart Rate Baseline: 135 Assessment and Plan Assessment and plan (1) Uterine contractions: Status: Acute Assessment and plan: 1. Will continue present management and reassess in 2-4 hours or prn. KH Objective Abnormal lab results 10/01/22 Range/Units 20:45 RBC 3.63 L (3.93-5.22) 10^6/uL Hgb 11.0 L (11.2-15.7) g/dL Hct 33.3 L (36.0-46.0) % RDW 16.2 H (11.7-14.6) % MPV 11.1 H (8.0-11.0) fL Temp Pulse Resp BP 97.9 F 85 18 137/71 10/01/22 22:16 10/01/22 23:48 10/01/22 22:16 10/01/22 23:48 Laboratory Results WBC 9.50 10^3/uL (4.4-10.8) 10/01/22 20:45 RBC 3.63 10^6/uL (3.93-5.22) L 10/01/22 20:45 Hgb 11.0 g/dL (11.2-15.7) L 10/01/22 20:45 Hct 33.3 % (36.0-46.0) L 10/01/22 20:45 MCV 92 fL (80-95) 10/01/22 20:45 MCH 30.3 pg (27.0-33.0) 10/01/22 20:45 MCHC 33.0 % (32.0-36.0) 10/01/22 20:45 RDW 16.2 % (11.7-14.6) H 10/01/22 20:45 Plt Count 186 10^3/uL (130-400) 10/01/22 20:45 MPV 11.1 fL (8.0-11.0) H 10/01/22 20:45 COVID-19 Source Nasal/Nares 10/01/22 20:45 SARS-CoV-2 (PCR) Negative (Negative) 10/01/22 20:45 Patient ABO/Rh A Positive 10/01/22 20:45 Antibody Screen NEGATIVE 10/01/22 20:45 Vital Signs Reviewed: Yes Subjective Interval history since last seen: continues to have contractions and low back pain, is utilizing hands and knees presentation. Has had emesis. Doing well. KH Results Hemoglobin/Hematocrit: Hgb 11.0 g/dL (11.2-15.7) L 10/01/22 20:45 Hct 33.3 % (36.0-46.0) L 10/01/22 20:45 Abnormal Lab Findings: Abnormal Labs 10/01/22 20:45 RBC 3.63 L Hgb 11.0 L Hct 33.3 L RDW 16.2 H MPV 11.1 H
[2022-10-02] MEDS: miSOPROStol 200 MCG TAB 800 MCG SL (02:08)
[2022-10-02] MEDS: Oxytocin 10 UNITS/ML VIAL IM (02:08)
--- NOTE | 2022-10-02 02:29 | OBVDS_ITS ---
Date of service: 10/02/22 Time of Service: 02:29 OB Labor/ Delivery Information Baby A Delivery Delivery Method: Spontaneaous Presentation: Cephalic Cephalic Position: Vertex Vertex Position: Left Occipital Anterior Cord Description-Baby A: 3 Vessels and Clamped/Cut (after 3 minutes of delayed cord clamping) Cord Description Comment: Nuchal X 1 loose reduced after head delivered Amniotic Fluid: Clear Estimated Blood Loss: 400 Delivery Outcome: Liveborn Infant Complications: none Infant Transferred: Remains with Mother Note: Michell arrived in early labor and progressed normally with SROM occurring at 0020 on 10/02/22 and then rapid progression to involuntary pushing at 0100. FHR tracing was CAT I on arrival and doppler assessment remained WNL throughout. Second stage huddle was held and due to history of PPH and retained placenta on her previous 2 deliveries it was agreed to give 10 units pitocin IM and 800 mcg of misoprostol SL after baby delivered. Live male delivered COLT over essentially intact perineum at 0204 while mom was on hands and knees. Baby was born into hands of Jacques, FOMisti and CNM. Nuchal cord loose X 1 was reduced before shoulders and body quickly delivered with maternal bearing down efforts. Michell repositioned herself and she was handed baby and he was placed skin to skin. 10 units of pitocin was given IM and 800 mcg misoprostol was given SL as active management of second stage. Placenta and cord was double clamped and cut by Jacques. Placenta delivered with gentle downward traction on cord and maternal expuslive effort at 0210, intact. Fundus firms to U with EBL 400 cc. There was a small but not hemostatic 1st degree perineal laceration that required 1 stich of 3.o chromic to stop oozing. Baby 8 and 9. weight is 9lb 3.8oz. They do not plan circumcision for their son. Positive family bonding is noted and Mother and baby are in satisfactory condition. Michell is planning Caya diaphragm for contraception. Providers Nurse Windshield Repair Technician: Beatriz Scott Nurse: Amarilys Villavicencio Nurse: Elaina Perez Other: Bonnie Zurita Labor/Delivery Information Number of Babies in Womb: 1 Steroids Given: None Reason Steroids Not Administered: N/A Group Beta Strep: Negative Rubella Status: Immune Blood Type: A+ Varicella Immunity: Nonimmune Shoulder Dystocia: No Stages of Labor Onset of Labor Date: 10/01/22 Onset of Labor Time: 19:00 Complete Dilatation Date: 10/02/22 ROM Baby A: 10/02/22 ROM Baby A: 00:20 ROM Total Time- Baby A: [id number] Delivery Date-Baby A: 10/02/22 Infant Delivery Time-Baby A: 02:04 Placenta Delivery Date-Baby A: 10/02/22 Placenta Delivery Time-Baby A: 02:10 Labor-Stage 3 Duration: 6 minutes Total Length of Labor-Baby A: 7 hours and 4 minutes Placenta Status: Delivered Baby A Infant Gender: Male Gestational Status: Term (39-41.6 wks) Gestational Age in Weeks/Days: 39 Weeks and 2 Days Length-Baby A: 20.87 in
[2022-10-02] MEDS: Acetaminophen 325 MG TAB 650 MG PO ×4 (04:05→22:19)
[2022-10-02] MEDS: Ibuprofen 600 MG TAB PO ×3 (04:06→17:44)
[2022-10-02] MEDS: Varicella Virus Vaccine (Live) 0.5 ML SC (15:56)
[2022-10-02] MEDS: Calcium Carbonate *TUMS* 500 MG CHEW 1000 MG PO (20:14)
[2022-10-03] MEDS: Ibuprofen 600 MG TAB PO ×2 (00:08→06:27)
[2022-10-03 00:18] VITALS: BP 121/81; PULSE 73; RESP 16; TEMP 36.6
[2022-10-03] MEDS: Acetaminophen 325 MG TAB 650 MG PO (03:32)
[2022-10-03 07:21] VITALS: BP 126/82; PULSE 73; RESP 18; TEMP 36.4
[2022-10-03] MEDS: Hamamelis Leaf/Glycerin 100 EACH BOX PR (08:40)
--- NOTE | 2022-10-03 10:22 | DSE_ITS ---
Date of service: 10/03/22 Time of Service: 10:22 DS: Diagnosis Discharge Diagnosis (1) Term of male : Status: Acute Asessment and Plan: Caring for baby independently. Michell has been experiencing cramping with nursing. Pain is managed well with oral analgesics. Voiding without difficulty. Michell has a history of low milk supply. She is well with assistance of Roselyn Crenshaw. History of peripartum depression. She denies post depression A - stable mother and baby , Post day 1, History of difficulties. History of peripartum depression. P - Discharge to home today . Routine post instructions. Discussed remedies for sore nipples and signs of post depression. [facility] Discharge Plan Disposition Patient Disposition: Home Condition: Good Discharge Details Reason For Visit: Labor Admit Date/Time: 10/01/22 20:32 Admit Provider: Beatriz Scott Attending Provider: Beatriz Scott Primary Care Provider: Jane Way Home Meds and New Rx's Prescriptions: No Action prenat.vits,zhou,[id number] Tablet 1 tab PO DAILY cholecalciferol (vitamin D3) [Vitamin D3] 10 mcg (400 unit) tablet,chewable 2,000 unit PO DAILY Rx Instructions: for a total of 500 mg/gummies Fergon 225 mg (27 mg iron) tablet 225 mg PO DAILY magnesium 250 mg tablet 250 mg PO DAILY mecobalamin (vitamin B12) 1,000 mcg tablet,chewable 1,000 mcg PO DAILY Discharge Instructions Stand Alone Forms: BC Instructions, BC Post Vaginal Deliver Activity:: Activity as Tolerated Equipment/Supplies:: No Equipment Needed Diet:: As Tolerated Discharge Orders Discharge Orders: Discharge Order (Routine); Ordered 10/03/22 Ordered By: Beatriz Rizo OB:DS Summary Summary Vaginal Delivery Method: Spontaneaous Contraception Discussed Contraception Discussed: Yes Contraceptive Plan: Diaphragm (Caya), [place] Gender-Baby A: Male weight: 9 lb 3.798 oz Status at Discharge Functional status at discharge: independent ambulation Overall status at discharge: patient is back to baseline Mental Status: mental status grossly normal Speech and Movement: speech and movement normal Mood: congruent mood Affect: normal affect Exam Physical Exam Vital signs: Temp Pulse Resp BP Pulse Ox 97.5 F L 73 18 126/82 99 10/03/22 07:21 10/03/22 07:21 10/03/22 07:21 10/03/22 07:21 10/02/22 20:23 Respiratory Exam Respiratory Exam: Normal Cardiovascular Exam Cardiovascular Exam: Normal Fundal Exam Fundus: Below Umbilicus Extremities Exam Extremity Exam: Normal Back/Spine/Pelvis Exam Back Exam: Normal Skin Exam Skin Exam: Normal Psychiatric Exam Psychiatric Exam: Normal PFSH All Active Problems (Updated 10/03/22 @ 10:25 by Beatriz Rizo CNM) Term of male (Acute) Uterine contractions (Acute) COVID-19 affecting in second trimester (Acute) + 07/09/22 symptom onset 07/06/22 Marijuana use (Acute) stopped use during (Acute) ADHD (Acute) Maternal varicella, non-immune (Acute) BMI 30.0-30.9,adult (Acute) (Acute) Depression (Chronic) Medical History History of gestational hypertension History of hemorrhage, currently Low TSH level Nml TSH on f/up blood draw Uterine size date discrepancy Family History Father Diabetes Hypertension Maternal Grandfather Cancer leukemia Social History Smoking/Tobacco Use Status: Never Smoking risk assessment performed?: Yes Alcohol Intake: never Substance use type: does not use Do you feel safe at home: Yes Do you feel safe in your relationship?: Yes Female Reproductive History Menstrual control method: none History History 4 Para 2 Hx # Term Pregnancies 2 Multiple births 0 Hx # Pregnancies 0 Ectopic pregnancies 0 AB induced 0 Hx Number of Living Children 2 AB spontaneous 1 Past Pregnancies Del. Date GA/Weeks # Preg Succ Route Wgt Sex Labor Lgth Anesth esia Location Prov Complic 11/10/19 40 No Yes vaginal 8 lb 13 oz Male 48+ hrs regional CNM at [facility] [place] In [facility] hemorrhage 08/13/21 40 No Yes vaginal 8 lb 15 oz Female 5 hr labor GALINA Rizo hemorrhage Delivery Date: 11/10/19 Last Updated by: Genna Zurita [facility], labored 10 hrs & transfered to hospital for HTN, augmented, epidural, labored 2 more days, , PPH of 900 ml, required 2 units PRBC's, Archangel Delivery Date: 08/13/21 Last Updated by: Genna Zurita Rapid labor, Stadol for pain x1, D&C by KJ for retained fragment; QBL 1600, no transfusion, Melinda DS: Data Vitals/I&O Vitals and I&O: Vital Signs Temperature 97.5 F L 10/03/22 07:21 Pulse 73 10/03/22 07:21 Pulse Rhythm Regular 10/03/22 07:21 Respiratory Rate 18 10/03/22 07:21 Blood Pressure 126/82 10/03/22 07:21 Blood Pressure Mean 96 10/03/22 07:21 Pulse Oximetry 99 10/02/22 20:23 Oxygen Delivery Method Room Air 10/01/22 20:37 Oxygen Flow Rate 0 10/01/22 20:37 Pain Level 2 10/03/22 06:27 Intake & Output 10/02/22 10/02/22 10/03/22 11:59 23:59 11:59 Output Total 850 / 850 Balance -850 / -850 Output: Urine 850 / 850
== END 2022-10-03 13:05 | disposition home or self-care (01) | DRG 807 ==
PROVIDERS: Admitting Provider Advanced Practice Midwife; PCP Nurse Practitioner Community Health; Visit Provider Advanced Practice Midwife
DX: O99.344 Other mental disorders complicating childbirth (principal); Z37.0 Single live birth; F32.A Depression, unspecified; O70.0 First degree perineal laceration during delivery; O69.81X0 Labor and delivery complicated by cord around neck, without compression, not applicable or unspecified; Z3A.39 39 weeks gestation of pregnancy
CPT/HCPCS: 85027; 86850; 86900; 86901; 87635; J2590

== ENCOUNTER 2022-11-15 14:56 | Outpatient (REF) | payer BC, SELFPAY ==
--- NOTE | 2022-11-15 14:00 | PAPFT_PTH ---
PATIENT: Michell Garrido LOC: [facility] U#:[id number] AGE/SX: 32/F ROOM: RE11/15/[address]: Beatriz Scott CNM : 1990 BED: DIS: 11/15/2022 SPEC #: [id number] RECD: 11/15/22 18:00 STATUS: MG REQ #: [id number] MADHU: 11/15/22 14:[address]: Beatriz Scott DEPT: [facility] Cytology RECD BY: Jazmine High ENTERED: 11/15/22 18:01 SP TYPE: PAPFT OTHR DR: Jane Way Tissues: 1 - CX/ENDOCX FOR PAP SMEARS Procedures: PAP THIN PREP/UVM Screening HPV DNA PROBE Comments: [id number]
== END 2022-11-15 14:57 | disposition home or self-care (01) ==
LOC: LBN 14:56
PROVIDERS: PCP Nurse Practitioner Community Health; Visit Provider Advanced Practice Midwife
DX: Z12.4 Encounter for screening for malignant neoplasm of cervix (principal); Z11.51 Encounter for screening for human papillomavirus (HPV)
CPT/HCPCS: 88142; 87624

== ENCOUNTER 2024-01-06 04:44 | Outpatient (CLI) | payer BC, SELFPAY ==
[2024-01-06 11:49] LABS: Abs Immature Grans 0.03 10^3/uL (0.0-0.06); Absolute Basophil Count 0.03 10^3/uL (0.0-0.2); Absolute Eosinophil Count 0.04 10^3/uL (0.0-0.7); Absolute Lymphocyte Count 2.51 10^3/uL (1.2-3.4); Absolute Monocyte Count 0.72 10^3/uL (0.1-0.8); Absolute Neutrophil Count 7.32 10^3/uL (1.2-6.7); Basophils % 0.3; Eosinophils % 0.4; HCT 37.3 % (36.0-46.0); HGB 12.5 g/dL (11.2-15.7); Immature Grans % 0.3; Lymphocytes % 23.6; MCH 30.3 pg (27.0-33.0); MCHC 33.5 % (32.0-36.0); MCV 90 fL (80-95); MPV 11.3 fL (8.0-11.0); Monocytes % 6.8; Neutrophils % 68.6; Platelet Count 232 10^3/uL (130-400); RBC 4.13 10^6/uL (3.93-5.22); RDW 13.3 % (11.7-14.6); RDW-SD 44.4 fL; WBC 10.65 10^3/uL (4.4-10.8)
[2024-01-06 12:08] LABS: TSH (W/Ref FT4) 0.11 uIU/mL (0.36-3.74)
[2024-01-06 12:25] LABS: FREE T4 1.11 ng/dL (0.76-1.46)
[2024-01-06 18:29] LABS: Hepatitis B Surface Ag Negative (Negative)
[2024-01-06 18:59] LABS: Hepatitis C Ab w Rflx HCV PCR Negative (Negative)
[2024-01-06 19:01] LABS: HIV-1/2 Ag & Ab Screen Negative (Negative)
[2024-01-07 10:19] LABS: Rubella IgG Ab (UVM) Positive (See Note); Varicella IgG Antibody Negative (See Note)
[2024-01-07 23:34] LABS: Syphilis IgG w/Reflex Nonreactive (Nonreactive)
== END 2024-01-06 04:45 | disposition home or self-care (01) ==
LOC: LBO 04:44
PROVIDERS: PCP Nurse Practitioner Community Health; Visit Provider Advanced Practice Midwife
DX: Z34.91 Encounter for supervision of normal pregnancy, unspecified, first trimester (principal)
CPT/HCPCS: 36415; 86787; 86803; 86850; 86900; 86901; 87340; 87389; 84439; 84443; 85025; 86762; 86780

== ENCOUNTER 2024-01-06 11:17 | Outpatient (REF) | payer BC, SELFPAY ==
[2024-01-07 14:47] LABS: Chlamydia Result Negative (Negative); GC Result Negative (Negative)
== END 2024-01-06 11:18 | disposition home or self-care (01) ==
LOC: LBN 11:17
PROVIDERS: PCP Nurse Practitioner Community Health; Visit Provider Advanced Practice Midwife
DX: Z34.91 Encounter for supervision of normal pregnancy, unspecified, first trimester (principal); Z3A.12 12 weeks gestation of pregnancy
CPT/HCPCS: 87491; 87591; 87086

== ENCOUNTER 2024-04-26 02:16 | Outpatient (CLI) | payer BC, SELFPAY ==
--- OUTSIDE RECORDS SUMMARY | 2024-04-26 02:23 | XMS_ITS | Encounter Summary ---
Author Organization [facility] Address [address] [place] [address] Care Team Providers Care Loading Machine Operator Helper Name Role Phone None, Provider Primary Care Provider Corinne Lewis Primary Care Provider [phone] Encounter Details Date Type Department Care Team (Late st Contact Info) Description 03/14/2022 Lab Requisition [facility] Pathology & [place] [address] Outr Resulting Lab, Provider Social History Tobacco Use Types Packs/Day Years Used Date Smoking Tobacco: Never Assessed Interpersonal Safety Answer Date Record ed Physically Hurt Never 02/06/2021 Verbally Threaten Not on file 02/06/2021 Sex and Gender Information Value Date Recorded Sex Assigned at Not on file Gender Identity None 06/11/2023 14:10 EDT Sexual Orientation Not on file documented as of this encounter Plan of Treatment Not on file documented as of this encounter Procedures Procedure Name Priority Date/Time Associated Diagnosis Comments HEPATITIS C AB W REFLEX TO HCV RNA BY PCR Routine 03/14/2022 11:55 EDT HEPATITIS B SURFACE ANTIGEN Routine 03/14/2022 11:55 EDT documented in this encounter Results * HEPATITIS B SURFACE ANTIGEN (03/14/2022 11:55 EDT) Hep B Surface Ag Negative Negative 03/15/2022 9:28 EDT [facility] Blood VENOUS BLOOD / Unknown 03/14/2022 11:55 EDT 03/14/2022 17:24 EDT Provider Outr Resulting Lab CHEMISTRY & BLOOD GAS ORDERABLES Performing Organization Address City/[facility]/ZIP Co de Phone Number [facility] [address] [place] [address] * HEPATITIS C AB W REFLEX TO HCV RNA BY PCR (03/14/2022 11:55 EDT) Hep C Antibody Negative Negative 03/15/2022 10:15 EDT [facility] Blood VENOUS BLOOD / Unknown 03/14/2022 11:55 EDT 03/14/2022 17:24 EDT Provider Outr Resulting Lab CHEMISTRY & BLOOD GAS ORDERABLES Performing Organization Address [facility] Co de Phone Number [facility] [address] [place] [address] documented in this encounter Visit Diagnoses Not on filedocumented in this encounter Care Teams Loading Machine Operator Helper Relationship Specialty Start Date End Date None, Provider PCP - General 07/30/21 06/10/23 Corinne Park FNP [address] [facility] [address] [place] [phone] PCP - General Family Medicine - Primary Care 06/11/23 documented as of this encounter
--- OUTSIDE RECORDS SUMMARY | 2024-04-26 02:23 | XMS_ITS | Encounter Summary ---
Author Organization [facility] Address [address] [place] [address] Care Team Providers Care Leather Grainer Name Role Phone None, Provider Primary Care Provider Corinne Lewis Primary Care Provider [phone] Encounter Details Date Type Department Care Team (Late st Contact Info) Description 10/23/2021 Lab Requisition [facility] Pathology & [place] [address] Outr Resulting Lab, Provider Social History Tobacco [...] Procedure Name Priority Date/Time Associated Diagnosis Comments RHEUMATOID FACTOR Routine 10/23/2021 9:0 6 EST ANTI NUCLEAR AB (NEYDA), IFA Routine 10/23/2021 9:06 EST documented in this encounter Results * RHEUMATOID FACTOR (10/23/2021 9:06 EST) Rheumatoid Factor <8.6 <12.0 IU/mL 10/23/2021 21:50 EST [facility] Blood VENOUS BLOOD / Unknown 10/23/2021 9:06 EST 10/23/2021 21:18 EST Provider Outr Resulting Lab CHEMISTRY & BLOOD GAS ORDERABLES Performing Organization Address City/[facility]/ZIP Co de Phone Number [facility] [address] [place] [address] * ANTI NUCLEAR AB (NEYDA), IFA (10/23/2021 9:06 EST) NEYDA Interpretation Negative Negative 2021 14:43 EST [facility] Comment:No titer performed, NEYDA Screen is negative. Blood VENOUS BLOOD / Unknown 10/23/2021 9:06 EST 10/23/2021 21:18 EST Narrative [facility] - 10/24/2021 14:43 EST Results were obtained with the INOVA NOVA Lite HEp-2 NEYDA Kit by indirect immunofluorescence. Provider Outr Resulting Lab IMMUNOLOGY A ND SEROLOGY ORDERABLES Performing Organization Address [facility] Co de Phone Number [facility] [address] [place] [address] documented in this encounter Visit Diagnoses Not on filedocumented in this encounter Care Teams Leather Grainer Relationship Specialty Start Date End Date None, Provider PCP - General 07/30/21 06/10/23 Corinne Park FNP [address] [place] [phone] PCP - General Family Medicine - Primary Care 06/11/23 documented as of this encounter
--- OUTSIDE RECORDS SUMMARY | 2024-04-26 02:23 | XMS_ITS | Encounter Summary ---
Author Organization [facility] Address [address] [place] [address] Care Team Providers Care Manager Retirement Name Role Phone None, Provider Primary Care Provider Corinne Lewis Primary Care Provider [phone] Encounter Details Date Type Department Care Team (Late st Contact Info) Description 03/14/2022 Lab Requisition [facility] Pathology & [place] [address] Outr Resulting Lab, Provider Social History Tobacco [...] Procedure Name Priority Date/Time Associated Diagnosis Comments CHLAMYDIA/N. GONORRHOEAE AMPLIFIED NUCLEIC ACID Routine 03/14/2022 11:00 EDT documented in this encounter Results * CHLAMYDIA/N. GONORRHOEAE AMPLIFIED RNA (03/14/2022 11:00 EDT) Neisseria gonorrhoeae Result Negative Negative 03/15/2022 15:01 EDT [facility] Chlamydia trachomatis Result Negative Negative 03/15/2022 15:01 EDT [facility] Swab ENTIRE ENDOCERVIX / Unknown 03/14/2022 11:00 EDT 03/14/2022 21:27 EDT Provider Outr Resulting Lab MICROBIOLOGY - GENERAL ORDERABLES [facility] [address] [place] [address] documented in this encounter Visit Diagnoses Not on filedocumented in this encounter Care Teams Manager Retirement Relationship Specialty Start Date End Date None, Provider PCP - General 07/30/21 06/10/23 Corinne Park FNP [address] [phone] PCP - General Family Medicine - Primary Care 06/11/23 documented as of this encounter
--- OUTSIDE RECORDS SUMMARY | 2024-04-26 02:23 | XMS_ITS | Encounter Summary ---
Author Organization [facility] Address [address] [place] [address] Care Team Providers Care Instructional Aide Name Role Phone Corinne Park XIMENA Primary Care Provider [phone] Encounter Details Date Type Department Care Team (Late st Contact Info) Description 01/06/2024 Lab Requisition [facility] Pathology & Laboratory Medicine - [address] [address] Outr Resulting Lab, Provider Social History Tobacco [...] Procedure Name Priority Date/Time Associated Diagnosis Comments HIV 1/2 ANTIGEN AND ANTIBODY, 4TH GENERATION Routine 01/06/2024 11:36 EDT documented in this encounter Results * HIV 1/2 ANTIGEN AND ANTIBODY, 4TH GENERATION (01/06/2024 11:36 EDT) HIV 1 and 2 Antibody/p24 Antigen, 4th Generation Negative Negative 01/06/2024 18:[address] [facility] Comment:If acute HIV-1 infec tion is suspected in a high risk patient, submit plasma specimen for HIV-1 RNA quantitation test. Blood VENOUS BLOOD / Unknown 01/06/2024 11:36 EDT 01/06/2024 17:10 EDT Narrative [facility] - 01/06/2024 18:56 EDT Fourth Generation assay performed on the Siemens MoneyManaur XPT. Provider Outr Resulting Lab IMMUNOLOGY A ND SEROLOGY ORDERABLES [facility] [address] [place] [address] documented in this encounter Visit Diagnoses Not on filedocumented in this encounter Care Teams Instructional Aide Relationship Specialty Start Date End Date Corinne Park FNP [address] [facility] [address] [place] [phone] PCP - General Family Medicine - Primary Care 06/11/23 documented as of this encounter
--- OUTSIDE RECORDS SUMMARY | 2024-04-26 02:23 | XMS_ITS | Encounter Summary ---
Author Organization [facility] Address [address] [place] [address] Care Team Providers Care Manager Lean Name Role Phone None, Provider Primary Care Provider Corinne Lewis Primary Care Provider [phone] Encounter Details Date Type Department Care Team (Late st Contact Info) Description 03/14/2022 Lab Requisition [facility] Pathology & [place] [address] Outr Resulting Lab, Provider Social History Tobacco [...] 1/2 ANTIGEN AND ANTIBODY, 4TH GENERATION Routine 03/14/2022 11:55 EDT documented in this encounter Results * HIV 1/2 ANTIGEN AND ANTIBODY, 4TH GENERATION (03/14/2022 11:55 EDT) HIV 1 and 2 Antibody/p24 Antigen, 4th Generation Negative Negative 03/15/2022 9:55 EDT [facility] Comment:If acute HIV-1 infec tion is suspected in a high risk patient, submit plasma specimen for HIV-1 RNA quantitation test. Blood VENOUS BLOOD / Unknown 03/14/2022 11:55 EDT 03/14/2022 17:24 EDT Narrative [facility] - 03/15/2022 9:55 EDT Fourth Generation assay performed on the Siemens Double Encoreaur XPT. Provider Outr Resulting Lab IMMUNOLOGY A ND SEROLOGY ORDERABLES [facility] [address] [place] [address] documented in this encounter Visit Diagnoses Not on filedocumented in this encounter Care Teams Manager Lean Relationship Specialty Start Date End Date None, Provider PCP - General 07/30/21 06/10/23 Corinne Park FNP [address] [place] [phone] PCP - General Family Medicine - Primary Care 06/11/23 documented as of this encounter
--- OUTSIDE RECORDS SUMMARY | 2024-04-26 02:23 | XMS_ITS | Encounter Summary ---
Author Organization [facility] Address [address] [place] [address] Care Team Providers Care Claims Customer Service Representative Name Role Phone Corinne Park XIMENA Primary Care Provider [phone] Encounter Details Date Type Department Care Team (Late st Contact Info) Description 01/06/2024 Lab Requisition [facility] Pathology & Laboratory Medicine - [address] [address] Outr Resulting Lab, Provider Social History Tobacco [...] REFLEX TO HCV RNA BY PCR Routine 01/06/2024 11:36 EDT HEPATITIS B SURFACE ANTIGEN Routine 01/06/2024 11:36 EDT documented in this encounter Results * HEPATITIS B SURFACE ANTIGEN (01/06/2024 11:36 EDT) Hep B Surface Ag Negative Negative 01/06/2024 18:25 EDT [facility] Blood VENOUS BLOOD / Unknown 01/06/2024 11:36 EDT 01/06/2024 17:10 EDT Provider Outr Resulting Lab CHEMISTRY & BLOOD GAS ORDERABLES Performing Organization Address City/[facility]/ZIP Co de Phone Number [facility] [address] [place], [place] [id number] * HEPATITIS C AB W REFLEX TO HCV RNA BY PCR (01/06/2024 11:36 EDT) Hep C Antibody Negative Negative 01/06/2024 18:55 EDT [facility] Blood VENOUS BLOOD / Unknown 01/06/2024 11:36 EDT 01/06/2024 17:10 EDT Provider Outr Resulting Lab CHEMISTRY & BLOOD GAS ORDERABLES Performing Organization Address City/[facility] Co de Phone Number [facility] [address] [place], [place] [address] documented in this encounter Visit Diagnoses Not on filedocumented in this encounter Care Teams Claims Customer Service Representative Relationship Specialty Start Date End Date Corinne Park FNP [address] [facility] [address] [place] [phone] PCP - General Family Medicine - Primary Care 06/11/23 documented as of this encounter
--- OUTSIDE RECORDS SUMMARY | 2024-04-26 02:23 | XMS_ITS | Encounter Summary ---
Author Organization [facility] Address [address] [place] [address] Care Team Providers Care Computer Mechanic Name Role Phone Corinne Park XIMENA Primary Care Provider [phone] Encounter Details Date Type Department Care Team (Late st Contact Info) Description 01/06/2024 Lab Requisition [facility] Pathology & Laboratory Medicine - [address] [address] Outr Resulting Lab, Provider Social History Tobacco [...] Procedure Name Priority Date/Time Associated Diagnosis Comments RUBELLA IGG ANTIBODY Routine 01/06/2024 11:36 EDT VARICELLA IGG ANTIBODY Routine 01/06/2024 11:36 EDT documented in this encounter Results * VARICELLA IGG ANTIBODY (01/06/2024 11:36 EDT) Varicella IgG Ab Negative See Note 01/07/2024 10:13 EDT [facility] Comment:Absence of detectabl e Varicella Zoster virus IgG antibodies. A negative result generally indicates no detectable antibody, but does not rule out acute infection. If VZV exposure is suspected, a second sample should be collected and tested no less than one or two weeks later. Blood VENOUS BLOOD / Unknown 01/06/2024 11:36 EDT 01/06/2024 17:10 EDT Provider Outr Resulting Lab IMMUNOLOGY A ND SEROLOGY ORDERABLES Performing Organization Address [facility]/ZIP Co de Phone Number [facility] [address] [place], [place] [address] * RUBELLA IGG ANTIBODY (01/06/2024 11:36 EDT) Rubella IgG Ab Positive See Note 01/07/2024 10:14 EDT [facility] Comment:Positive for IgG ant ibodies to Rubella virus. Blood VENOUS BLOOD / Unknown 01/06/2024 11:36 EDT 01/06/2024 17:10 EDT Provider Outr Resulting Lab CHEMISTRY & BLOOD GAS ORDERABLES Performing Organization Address [facility] Co de Phone Number [facility] [address] [place], [place] [address] documented in this encounter Visit Diagnoses Not on filedocumented in this encounter Care Teams Computer Mechanic Relationship Specialty Start Date End Date Corinne Park FNP [address] [place] [phone] PCP - General Family Medicine - Primary Care 06/11/23 documented as of this encounter
--- OUTSIDE RECORDS SUMMARY | 2024-04-26 02:23 | XMS_ITS | Encounter Summary ---
Author Organization [facility] Address [address] [place] [address] Care Team Providers Care Salesperson Flowers Name Role Phone None, Provider Primary Care Provider Corinne Lewis Primary Care Provider [phone] Encounter Details Date Type Department Care Team (Late st Contact Info) Description 03/14/2022 Lab Requisition [facility] Pathology & [place] [address] Outr Resulting Lab, Provider Social History Tobacco [...] Associated Diagnosis Comments RUBELLA IGG ANTIBODY Routine 03/14/2022 11:55 EDT VARICELLA IGG ANTIBODY Routine 03/14/2022 11:55 EDT documented in this encounter Results * VARICELLA IGG ANTIBODY (03/14/2022 11:55 EDT) Varicella IgG Ab Negative See Note 03/15/2022 10:11 EDT [facility] Comment:Absence of detectabl e Varicella Zoster virus IgG antibodies. A negative result generally indicates no detectable antibody, but does not rule out acute infection. If VZV exposure is suspected, a second sample should be collected and tested no less than one or two weeks later. Blood VENOUS BLOOD / Unknown 03/14/2022 11:55 EDT 03/14/2022 17:24 EDT Provider Outr Resulting Lab IMMUNOLOGY A ND SEROLOGY ORDERABLES Performing Organization Address [facility] Co de Phone Number [facility] [address] [place] [address] * RUBELLA IGG ANTIBODY (03/14/2022 11:55 EDT) Rubella IgG Ab Positive See Note 03/15/2022 10:15 EDT [facility] Comment:Positive for IgG ant ibodies to Rubella virus. Blood VENOUS BLOOD / Unknown 03/14/2022 11:55 EDT 03/14/2022 17:24 EDT Provider Outr Resulting Lab CHEMISTRY & BLOOD GAS ORDERABLES Performing Organization Address [facility] Co de Phone Number [facility] [address] [place] [address] documented in this encounter Visit Diagnoses Not on filedocumented in this encounter Care Teams Salesperson Flowers Relationship Specialty Start Date End Date None, Provider PCP - General 07/30/21 06/10/23 Corinne Park FNP [address] [phone] PCP - General Family Medicine - Primary Care 06/11/23 documented as of this encounter
--- OUTSIDE RECORDS SUMMARY | 2024-04-26 02:23 | XMS_ITS | Encounter Summary ---
Author Organization [facility] Address [address] [place] [address] Care Team Providers Care Caterer Helper Name Role Phone None, Provider Primary Care Provider Corinne Lewis Primary Care Provider [phone] Encounter Details Date Type Department Care Team (Late st Contact Info) Description 11/18/2022 Lab Requisition [facility] Pathology & [place] [address] Beatriz Scott, STOCK OR DELIVERY CLERK [address] [place] [phone] Encounter for other general examination Social History Tobacco Use Types Packs/Day Years [...] Procedure Name Priority Date/Time Associated Diagnosis Comments PAP TEST Today 11/15/2022 2:00 EST Encounter for other general examination HPV DNA DETECTION WITH GENOTYPING, PCR Today 11/15/2022 2:00 EST Encounter for other general examination documented in this encounter Results * HUMAN PAPILLOMAVIRUS (HPV) DETECTION-HIGH RISK TYPES (11/15/2022 2:00 EST) HPV other High Risk types, PCR Negative Negative 12/02/2022 16:36 [facility] Comment:No E6 or E7 mRNA is detected from HPV types 16,18,31,33,35,39,45,51,52,56,58,59,66, and 68 by labeling associate mediated amplification. Papanicolaou smear specimen (specimen) CERVIX UTERI STRUCTURE / Unknown 11/15/2022 2:00 EST 11/29/2022 8:50 EST Beatriz Scott APN MICROBIOLOGY - GE NERAL ORDERABLES [facility] [address] [place] [address] * PAP TEST (11/15/2022 2:00 EST) Specimens A. Cervix and/or Endocervix , ThinPrep Imaging System with Manual Evaluation 12/02/2022 16:36 [facility] Specimen Adequacy Satisfactory for Evaluation - transformation zone component present 12/02/2022 16:36 [facility] General Categorization Negative for intraepithelial lesion or malignancy 12/02/2022 16:36 [facility] Attestation . 12/02/2022 16:36 [facility] at 1635 Clinical History See below 12/03/19 16:36 [facility] HPV The result for the Human Papillomavirus (HPV) Detection-High Risk Types is Negative. No E6 or E7 mRNA is detected from HPV types 16,18,31,33,35,39 ,45,51,52,56,58,5 9,66, and 68 by labeling associate mediated amplification.Judit ting was performed on specimen [id number] and was resulted on 12/02/2022 1635 EST by LARRY, LAB INSTRUMENT RESULTS IN 12/02/2022 16:36 [facility] Performing Lab [facility] 12/02/2022 16:36 [facility] Scanned Images 12/02/2022 16:36 [facility] Papanicolaou smear specimen (specimen) CERVIX UTERI STRUCTURE / Unknown 11/15/2022 2:00 EST 11/18/2022 13:00 EST Beatriz Scott APN PATHOLOGY ORDERAB LES [facility] [address] [place] [address] documented in this encounter Visit Diagnoses Diagnosis Encounter for other general examination documented in this encounter Care Teams Caterer Helper Relationship Specialty Start Date End Date None, Provider PCP - General 07/30/21 06/10/23 Corinne Park FNP 26 [facility] [address] [place] [phone] PCP - General Family Medicine - Primary Care 06/11/23 documented as of this encounter
--- OUTSIDE RECORDS SUMMARY | 2024-04-26 02:23 | XMS_ITS | Referral Summary ---
Author Organization [facility] Address [address] [place] [address] Care Team Providers Care Neon Sign Installer Name Role Phone Corinne Park XIMENA Primary Care Provider [phone] Social History Tobacco Use Types Packs/Day Years Used Date Smoking Tobacco: Never Assessed Interpersonal Safety Answer Date Record ed Physically Hurt Never 02/06/2021 Verbally Threaten Not on file 02/06/2021 Sex and Gender Information Value Date Recorded Sex Assigned at Not on file Gender Identity None 06/11/2023 14:10 EDT Sexual Orientation Not on file Plan of Treatment Not on file Procedures Procedure Name Priority Date/Time Associated Diagnosis Comments HEPATITIS C AB W REFLEX TO HCV RNA BY PCR Routine 01/06/2024 11:36 EDT from Last 3 Months or Most Recently Relevant to Health Maintenance Results * HEPATITIS C AB W REFLEX TO HCV RNA BY PCR (01/06/2024 11:36 EDT) Hep C Antibody Negative Negative 01/06/2024 18:55 EDT [facility] Blood VENOUS BLOOD / Unknown 01/06/2024 11:36 EDT 01/06/2024 17:10 EDT Provider Outr Resulting Lab CHEMISTRY & BLOOD GAS ORDERABLES [facility] [address] [place], [place] [address] from Last 3 Months or Most Recently Relevant to Health Maintenance Care Teams Neon Sign Installer Relationship Specialty Start Date End Date Corinne Park FNP [address] [place] [address] PCP - General Family Medicine - Primary Care 06/11/23
--- OUTSIDE RECORDS SUMMARY | 2024-04-26 02:23 | XMS_ITS | Clinical Summary ---
Author Organization [facility] Address [address] [place] [address] Care Team Providers Care Multilith Operator Name Role Phone Corinne Park XIMENA Primary Care Provider [phone] Social History Tobacco Use Types Packs/Day Years Used Date Smoking Tobacco: Never Assessed Interpersonal Safety Answer Date Record ed Physically Hurt Never 02/06/2021 Verbally Threaten Not on file 02/06/2021 Sex and Gender Information Value Date Recorded Sex Assigned at Not on file Gender Identity None 06/11/2023 14:10 EDT Sexual Orientation Not on file Plan of Treatment Health Maintenance Due Date Last Done Comments Hepatitis B Vaccine (1 of 3 - 19+ 3-dose series) 2011 COVID-19 Vaccine (2022-2 4 season) 2023 Hepatitis C Screen Completed 01/06/2024, 0 03/14/2022, 02/05/2021 Procedures Procedure Name Priority Date/Time Associated Diagnosis Comments HEPATITIS C AB W REFLEX TO HCV RNA BY PCR Routine 01/06/2024 11:36 EDT from Last 3 Months or Most Recently Relevant to Health Maintenance Results * HEPATITIS C AB W REFLEX TO HCV RNA BY PCR (01/06/2024 11:36 EDT) Hep C Antibody Negative Negative 01/06/2024 18:55 EDT [facility] Blood VENOUS BLOOD / Unknown 01/06/2024 11:36 EDT 01/06/2024 17:10 EDT Provider Outr Resulting Lab CHEMISTRY & BLOOD GAS ORDERABLES [facility] [address] [place] [address] from Last 3 Months or Most Recently Relevant to Health Maintenance Care Teams Multilith Operator Relationship Specialty Start Date End Date Corinne Park FNP [address] [place] [phone] PCP - General Family Medicine - Primary Care 06/11/23
--- OUTSIDE RECORDS SUMMARY | 2024-04-26 02:23 | XMS_ITS | Encounter Summary ---
Author Organization [facility] Address [address] [place] [address] Care Team Providers Care Lidar Scientist Name Role Phone Corinne Park XIMENA Primary Care Provider [phone] Encounter Details Date Type Department Care Team (Late st Contact Info) Description 01/06/2024 Lab Requisition [facility] Pathology & Laboratory Medicine - [address] [address] Outr Resulting Lab, Provider Social History Tobacco [...] Comments CHLAMYDIA/N. GONORRHOEAE AMPLIFIED NUCLEIC ACID Routine 01/06/2024 11:00 EDT documented in this encounter Results * CHLAMYDIA/N. GONORRHOEAE AMPLIFIED RNA (01/06/2024 11:00 EDT) Neisseria gonorrhoeae Result Negative Negative 01/07/2024 14:39 EDT [facility] Chlamydia trachomatis Result Negative Negative 01/07/2024 14:39 EDT [facility] Swab VAGINAL STRUCTURE / Unknown 01/06/2024 11:00 EDT 01/06/2024 18:48 EDT Provider Outr Resulting Lab MICROBIOLOGY - GENERAL ORDERABLES [facility] [address] [place] [address] documented in this encounter Visit Diagnoses Not on filedocumented in this encounter Care Teams Lidar Scientist Relationship Specialty Start Date End Date Corinne Park FNP [address] [phone] PCP - General Family Medicine - Primary Care 06/11/23 documented as of this encounter
--- OUTSIDE RECORDS SUMMARY | 2024-04-26 02:24 | XMS_ITS | Encounter Summary ---
Author Organization [facility] Address [address] [place] [address] Care Team Providers Care Pantograph Engraver Name Role Phone None, Provider Primary Care Provider Corinne Lewis Primary Care Provider [phone] Encounter Details Date Type Department Care Team (Late st Contact Info) Description 02/06/2021 Lab Requisition [facility] Pathology & Laboratory Medicine - [address] [address] Outr Resulting Lab, Provider Social History Tobacco [...] 1/2 ANTIGEN AND ANTIBODY, 4TH GENERATION Routine 02/05/2021 15:50 EDT documented in this encounter Results * HIV 1/2 ANTIGEN AND ANTIBODY, 4TH GENERATION (02/05/2021 15:50 EDT) HIV 1 and 2 Antibody/p24 Antigen, 4th Generation Negative Negative 02/07/2021 11:27 EDT [facility] Comment: If acute HIV-1 infection is suspected in a high risk ??patient, submit plasma specimen for HIV-1 RNA quantitation test. Fourth Generation assay performed on the Siemens StrategyEyeaur. Blood VENOUS BLOOD / Unknown 02/05/2021 15:50 EDT 02/06/2021 16:43 EDT Provider Outr Resulting Lab IMMUNOLOGY A ND SEROLOGY ORDERABLES [facility] [address] [place] [address] documented in this encounter Visit Diagnoses Not on filedocumented in this encounter Care Teams Pantograph Engraver Relationship Specialty Start Date End Date None, Provider PCP - General 07/30/21 06/10/23 Corinne Park FNP 26 [facility] [address] [place] [phone] PCP - General Family Medicine - Primary Care 06/11/23 documented as of this encounter
--- OUTSIDE RECORDS SUMMARY | 2024-04-26 02:24 | XMS_ITS | Encounter Summary ---
Author Organization [facility] Address [address] [place] [address] Care Team Providers Care Hog Pusher Name Role Phone None, Provider Primary Care Provider Corinne Lewis Primary Care Provider [phone] Encounter Details Date Type Department Care Team (Late st Contact Info) Description 02/06/2021 Lab Requisition [facility] Pathology & Laboratory Medicine - [address] [address] Outr Resulting Lab, Provider Social History Tobacco [...] Procedure Name Priority Date/Time Associated Diagnosis Comments HOLD SST Today 02/05/2021 15:50 EDT HEPATITIS C AB W REFLEX TO HCV RNA BY PCR Today 02/05/2021 15:50 EDT HEPATITIS B SURFACE ANTIGEN Today 02/05/2021 15:50 EDT documented in this encounter Results * HOLD SST (02/05/2021 15:50 EDT) Hold Hold 02/06/2021 17:45 EDT [facility] Blood VENOUS BLOOD / Unknown 02/05/2021 15:50 EDT 02/06/2021 16:43 EDT Provider Outr Resulting Lab LAB INFO SER VICE AND SUPPORT & PHONE RESULT Performing Organization Address City/[facility]/ZIP Co de Phone Number [facility] [address] [place] [address] * HEPATITIS B SURFACE ANTIGEN (02/05/2021 15:50 EDT) Hep B Surface Ag Negative Negative 02/07/2021 10:43 EDT [facility] Blood VENOUS BLOOD / Unknown 02/05/2021 15:50 EDT 02/06/2021 16:43 EDT Provider Outr Resulting Lab CHEMISTRY & BLOOD GAS ORDERABLES Performing Organization Address [facility] Co de Phone Number [facility] [address] [place] [address] * HEPATITIS C AB W REFLEX TO HCV RNA BY PCR (02/05/2021 15:50 EDT) Hep C Antibody Negative Negative 02/07/2021 11:22 EDT [facility] Blood VENOUS BLOOD / Unknown 02/05/2021 15:50 EDT 02/06/2021 16:43 EDT Provider Outr Resulting Lab CHEMISTRY & BLOOD GAS ORDERABLES Performing Organization Address City/[facility]/ZIP Co de Phone Number [facility] [address] [place] [address] documented in this encounter Visit Diagnoses Not on filedocumented in this encounter Care Teams Hog Pusher Relationship Specialty Start Date End Date None, Provider PCP - General 07/30/21 06/10/23 Corinne Park FNP [address] [place] [address] [place] [phone] PCP - General Family Medicine - Primary Care 06/11/23 documented as of this encounter
--- OUTSIDE RECORDS SUMMARY | 2024-04-26 02:24 | XMS_ITS | Encounter Summary ---
Author Organization [facility] Address [address] [place] [address] Care Team Providers Care Leading Firefighter Name Role Phone None, Provider Primary Care Provider Corinne Lewis Primary Care Provider [phone] Encounter Details Date Type Department Care Team (Late st Contact Info) Description 08/13/2021 Lab Requisition [facility] Pathology & Laboratory Medicine - [address] [address] Debi Bateman [address] [place] [address] [place] [phone] Encounter for other general examination Social History [...] Procedure Name Priority Date/Time Associated Diagnosis Comments SURGICAL PATHOLOGY Today 08/13/2021 5: 14 EST Encounter for other general examination documented in this encounter Results * SURGICAL PATHOLOGY (08/13/2021 5:14 EST) Note to Patient The following pathology results have been interpreted by your pathologist and may be available to you before your health provider has had the opportunity to review them. Please allow time for your provider to receive these results and explore management options, if applicable. 08/16/2021 18:35 [facility] Final Diagnosis A. INTRAUTERINE CONTENTS, POST , EVACUATION: - Placental site nodule. - Partially hyalinized chorionic villi, consistent with retained products of conception. - Superficial strips of benign endometrial tissue and decidualized stroma with abundant blood clot. 08/16/2021 18:35 [facility] Attestation There was significant resident/fellow involvement in the diagnostic evaluation of this case. By the signature below, the attending physician certifies that they have personally conducted a gross and/or microscopic examination of the described specimens and rendered or confirmed the above diagnosis. 08/16/2021 18:35 [facility] at 1835 Clinical History hemorrhage; clinical diagnosis code O72.1 08/16/2021 18:35 [facility] Gross Description A. Received in formalin labelled with proper patient identification (initials B, K) and uterine contents is an aggregate of predominantly blood with associated fibromembranous tissue (6.7 x 6.1 x 1.7 cm in aggregate dimension). No villous tissue, gestational sac or tissue is grossly identified identified. Approximately 70% of the tissue is submitted in A1-A5. ARLEEN ALLEN MD 08/14/2021 10:41 08/16/2021 18:35 [facility] Resident/Mikie w: Arleen Allen MD 08/16/2021 18:35 [facility] Performing Lab [facility] 18:35 [facility] Scanned Images 08/16/2021 18:35 [facility] Tissue PRODUCTS OF CONCEPTION TISSUE SPECIMEN / Unknown 08/13/2021 5:14 EST 08/13/2021 17:29 EST Debi Bateman PATHOLOGY ORDERABLES [facility] [address] [place] [address] documented in this encounter Visit Diagnoses Diagnosis Encounter for other general examination documented in this encounter Care Teams Leading Firefighter Relationship Specialty Start Date End Date None, Provider PCP - General 07/30/21 06/10/23 Corinne Park FNP 26 [facility] [address] [place] [phone] PCP - General Family Medicine - Primary Care 06/11/23 documented as of this encounter
--- OUTSIDE RECORDS SUMMARY | 2024-04-26 02:24 | XMS_ITS | Encounter Summary ---
Author Organization [facility] Address [address] [place] [address] Care Team Providers Care Infant Toddler Lead Teacher Name Role Phone None, Provider Primary Care Provider Corinne Lewis Primary Care Provider [phone] Encounter Details Date Type Department Care Team (Late st Contact Info) Description 02/06/2021 Lab Requisition [facility] Pathology & Laboratory Medicine - [address] [address] Outr Resulting Lab, Provider Social History Tobacco [...] Associated Diagnosis Comments RUBELLA IGG ANTIBODY Routine 02/05/2021 15:50 EDT VARICELLA IGG ANTIBODY Routine 02/05/2021 15:50 EDT documented in this encounter Results * VARICELLA IGG ANTIBODY (02/05/2021 15:50 EDT) Varicella IgG Ab Negative See Note 02/08/2021 11:48 EDT [facility] Comment:Absence of detectabl e Varicella Zoster virus IgG antibodies. A negative result generally indicates no detectable antibody, but does not rule out acute infection. If VZV exposure is suspected, a second sample should be collected and tested no less than one or two weeks later. Blood VENOUS BLOOD / Unknown 02/05/2021 15:50 EDT 02/06/2021 16:43 EDT Provider Outr Resulting Lab IMMUNOLOGY A ND SEROLOGY ORDERABLES Performing Organization Address [facility]/ZIP Co de Phone Number [facility] [address] [place] [address] * RUBELLA IGG ANTIBODY (02/05/2021 15:50 EDT) Rubella IgG Ab Positive See Note 02/07/2021 15:08 EDT [facility] Comment:Positive for IgG ant ibodies to Rubella virus. Blood VENOUS BLOOD / Unknown 02/05/2021 15:50 EDT 02/06/2021 16:43 EDT Provider Outr Resulting Lab CHEMISTRY & BLOOD GAS ORDERABLES Performing Organization Address [facility] Co de Phone Number [facility] [address] [place] [address] documented in this encounter Visit Diagnoses Not on filedocumented in this encounter Care Teams Infant Toddler Lead Teacher Relationship Specialty Start Date End Date None, Provider PCP - General 07/30/21 06/10/23 Corinne Park FNP [address] [phone] PCP - General Family Medicine - Primary Care 06/11/23 documented as of this encounter
--- OUTSIDE RECORDS SUMMARY | 2024-04-26 02:24 | XMS_ITS | Encounter Summary ---
Author Organization [facility] Address [address] [place] [address] Care Team Providers Care Molding Room Supervisor Name Role Phone None, Provider Primary Care Provider Corinne Lewis Primary Care Provider [phone] Encounter Details Date Type Department Care Team (Late st Contact Info) Description 03/16/2021 Lab Requisition [facility] Pathology & [place] [address] Outr Resulting Lab, Provider Social History Tobacco [...] Comments CHLAMYDIA/N. GONORRHOEAE AMPLIFIED NUCLEIC ACID Routine 03/16/2021 9:25 EDT documented in this encounter Results * CHLAMYDIA/N. GONORRHOEAE AMPLIFIED RNA (03/16/2021 9:25 EDT) Neisseria gonorrhoeae Result Negative Negative 03/19/2021 15:06 EDT [facility] Chlamydia trachomatis Result Negative Negative 03/19/2021 15:06 EDT [facility] Urine URINE / Unknown 03/16/2021 9 :25 EDT 03/16/2021 16:30 EDT Narrative [facility] - 03/19/2021 15:06 EDT A first catch urine specimen is acceptable for detection of Gonorrhea and Chlamydia, but might detect up to 10% fewer infections when compared with vaginal and endocervical swab samples. Provider Outr Resulting Lab MICROBIOLOGY - GENERAL ORDERABLES [facility] [address] [place] [address] documented in this encounter Visit Diagnoses Not on filedocumented in this encounter Care Teams Molding Room Supervisor Relationship Specialty Start Date End Date None, Provider PCP - General 07/30/21 06/10/23 Corinne Park FNP [address] [place] [phone] PCP - General Family Medicine - Primary Care 06/11/23 documented as of this encounter
[2024-04-26 09:32] LABS: HCT 33.9 % (36.0-46.0); HGB 11.3 g/dL (11.2-15.7); MCH 30.7 pg (27.0-33.0); MCHC 33.3 % (32.0-36.0); MCV 92 fL (80-95); MPV 11.2 fL (8.0-11.0); Platelet Count 178 10^3/uL (130-400); RBC 3.68 10^6/uL (3.93-5.22); RDW 13.7 % (11.7-14.6); RDW-SD 45.9 fL; WBC 10.09 10^3/uL (4.4-10.8)
[2024-04-26 09:49] LABS: Glucose,1 Hr (Glucola) 117 mg/dL (80-140)
== END 2024-04-26 02:17 | disposition home or self-care (01) ==
LOC: LBO 02:16
PROVIDERS: PCP Nurse Practitioner Community Health; Visit Provider Advanced Practice Midwife
DX: Z34.93 Encounter for supervision of normal pregnancy, unspecified, third trimester (principal)
CPT/HCPCS: 36415; 82950; 85027

== ENCOUNTER 2024-05-24 02:13 | Outpatient (CLI) | payer BC, SELFPAY ==
--- OUTSIDE RECORDS SUMMARY | 2024-05-24 02:14 | XMS_ITS | Encounter Summary ---
Author Organization [facility] Address [address] [place] [address] Care Team Providers Care Trimmer Meat Name Role Phone Corinne Park XIMENA Primary Care Provider [phone] Encounter Details Date Type Department Care Team (Late st Contact Info) Description 01/06/2024 Lab Requisition [facility] Pathology & Laboratory Medicine - [address] [address] Outr Resulting Lab, Provider Social History Tobacco [...] gonorrhoeae Result Negative Negative 01/07/2024 14:39 EDT [facility] Chlamydia trachomatis Result Negative Negative 01/07/2024 14:39 EDT [facility] Swab VAGINAL STRUCTURE / Unknown 01/06/2024 11:00 EDT 01/06/2024 18:48 EDT Provider Outr Resulting Lab MICROBIOLOGY - GENERAL ORDERABLES [facility] [address] [place] [address] documented in this encounter Visit Diagnoses Not on filedocumented in this encounter Care Teams Trimmer Meat Relationship Specialty Start Date End Date Corinne Park FNP [address] [phone] PCP - General Family Medicine - Primary Care 06/11/23 documented as of this encounter
--- OUTSIDE RECORDS SUMMARY | 2024-05-24 02:14 | XMS_ITS | Referral Summary ---
Author Organization [facility] Address [address] [place] [address] Care Team Providers Care Combination Operator Name Role Phone Corinne Park XIMENA Primary Care Provider [phone] Social History Tobacco Use Types Packs/Day Years [...] C Antibody Negative Negative 01/06/2024 18:55 EDT [facility] Blood VENOUS BLOOD / Unknown 01/06/2024 11:36 EDT 01/06/2024 17:10 EDT Provider Outr Resulting Lab CHEMISTRY & BLOOD GAS ORDERABLES [facility] [address] [place], [place] [address] from Last 3 Months or Most Recently Relevant to Health Maintenance Care Teams Combination Operator Relationship Specialty Start Date End Date Corinne Park FNP [address] [place] [phone] PCP - General Family Medicine - Primary Care 06/11/23
--- OUTSIDE RECORDS SUMMARY | 2024-05-24 02:14 | XMS_ITS | Encounter Summary ---
Author Organization [facility] Address [address] [place] [address] Care Team Providers Care Political Director Name Role Phone None, Provider Primary Care Provider Corinne Lewis Primary Care Provider [phone] Encounter Details Date Type Department Care Team (Late st Contact Info) Description 03/14/2022 Lab Re[address] [facility] Pathology & [place] [address] Outr Resulting Lab, Provider Social History Tobacco [...] gonorrhoeae Result Negative Negative 03/15/2022 15:01 EDT [facility] Chlamydia trachomatis Result Negative Negative 03/15/2022 15:01 EDT [facility] Swab ENTIRE ENDOCERVIX / Unknown 03/14/2022 11:00 EDT 03/14/2022 21:27 EDT Provider Outr Resulting Lab MICROBIOLOGY - GENERAL ORDERABLES [facility] [address] [place] [address] documented in this encounter Visit Diagnoses Not on filedocumented in this encounter Care Teams Political Director Relationship Specialty Start Date End Date None, Provider PCP - General 07/30/21 06/10/23 Corinne Park FNP [address] [phone] PCP - General Family Medicine - Primary Care 06/11/23 documented as of this encounter
--- OUTSIDE RECORDS SUMMARY | 2024-05-24 02:14 | XMS_ITS | Clinical Summary ---
Author Organization [facility] Address [address] [place] [address] Care Team Providers Care Calender Wind Up Helper Name Role Phone Corinne Park XIMENA Primary Care Provider [phone] Social History Tobacco Use Types Packs/Day Years [...] C Antibody Negative Negative 01/06/2024 18:55 EDT [facility] Blood VENOUS BLOOD / Unknown 01/06/2024 11:36 EDT 01/06/2024 17:10 EDT Provider Outr Resulting Lab CHEMISTRY & BLOOD GAS ORDERABLES [facility] [address] [place] [address] from Last 3 Months or Most Recently Relevant to Health Maintenance Care Teams Calender Wind Up Helper Relationship Specialty Start Date End Date Corinne Park FNP [address] [place] [phone] PCP - General Family Medicine - Primary Care 06/11/23
--- OUTSIDE RECORDS SUMMARY | 2024-05-24 02:14 | XMS_ITS | Encounter Summary ---
Author Organization [facility] Address [address] [place] [address] Care Team Providers Care Bodywork Therapist Name Role Phone Corinne Park XIMENA Primary Care Provider [phone] Encounter Details Date Type Department Care Team (Late st Contact Info) Description 01/06/2024 Lab Requisition [facility] Pathology & Laboratory Medicine - [address] [address] Outr Resulting Lab, Provider Social History Tobacco [...] 4th Generation Negative Negative 01/06/2024 18:56 EDT [facility] Comment:If acute HIV-1 infec tion is suspected in a high risk patient, submit plasma specimen for HIV-1 RNA quantitation test. Blood VENOUS BLOOD / Unknown 01/06/2024 11:36 EDT 01/06/2024 17:10 EDT Narrative [facility] - 01/06/2024 18:56 EDT Fourth Generation assay performed on the Siemens Frankly Chataur XPT. Provider Outr Resulting Lab IMMUNOLOGY A ND SEROLOGY ORDERABLES [facility] [address] [place] [address] documented in this encounter Visit Diagnoses Not on filedocumented in this encounter Care Teams Bodywork Therapist Relationship Specialty Start Date End Date Corinne Park FNP [address] [facility] [address] [place] [phone] PCP - General Family Medicine - Primary Care 06/11/23 documented as of this encounter
--- OUTSIDE RECORDS SUMMARY | 2024-05-24 02:14 | XMS_ITS | Encounter Summary ---
Author Organization [facility] Address [address] [place] [address] Care Team Providers Care Crimping Machine Operator Name Role Phone None, Provider Primary Care Provider Corinne Lewis Primary Care Provider [phone] Encounter Details Date Type Department Care Team (Late st Contact Info) Description 03/14/2022 Lab Requisition [facility] Pathology & [place] [address] Outr Resulting Lab, Provider Social History Tobacco [...] Surface Ag Negative Negative 03/15/2022 9:28 EDT [facility] Blood VENOUS BLOOD / Unknown 03/14/2022 11:55 EDT 03/14/2022 17:24 EDT Provider Outr Resulting Lab CHEMISTRY & BLOOD GAS ORDERABLES Performing Organization Address City/[facility]/ZIP Co de Phone Number [facility] [address] [place] [address] * HEPATITIS C AB W REFLEX TO HCV RNA BY PCR (03/14/2022 11:55 EDT) Hep C Antibody Negative Negative 03/15/2022 10:15 EDT [facility] Blood VENOUS BLOOD / Unknown 03/14/2022 11:55 EDT 03/14/2022 17:24 EDT Provider Outr Resulting Lab CHEMISTRY & BLOOD GAS ORDERABLES Performing Organization Address [facility] Co de Phone Number [facility] [address] [place] [address] documented in this encounter Visit Diagnoses Not on filedocumented in this encounter Care Teams Crimping Machine Operator Relationship Specialty Start Date End Date None, Provider PCP - General 07/30/21 06/10/23 Corinne Park FNP [address] [facility] [address] [place] [phone] PCP - General Family Medicine - Primary Care 06/11/23 documented as of this encounter
--- OUTSIDE RECORDS SUMMARY | 2024-05-24 02:14 | XMS_ITS | Encounter Summary ---
Author Organization [facility] Address [address] [place] [address] Care Team Providers Care Funder Name Role Phone None, Provider Primary Care Provider Corinne Lewis Primary Care Provider [phone] Encounter Details Date Type Department Care Team (Late st Contact Info) Description 11/18/[address] [facility] Pathology & [place] [address] Beatriz Scott, [employer] [address] [place] [phone] Encounter for other general examination Social History [...] Risk types, PCR Negative Negative 12/02/2022 16:36 [facility] Comment:No E6 or E7 mRNA is detected from HPV types 16,18,31,33,35,39,45,51,52,56,58,59,66, and 68 by labor/excavator mediated amplification. Papanicolaou smear specimen (specimen) CERVIX UTERI STRUCTURE / Unknown 11/15/2022 2:00 EST 11/29/2022 8:50 EST Beatriz Scott APN MICROBIOLOGY - GE NERAL ORDERABLES [facility] [address] [place] [address] * PAP TEST (11/15/2022 2:00 EST) Specimens A. Cervix and/or Endocervix , ThinPrep Imaging System with Manual Evaluation 12/02/2022 16:36 [facility] Specimen Adequacy Satisfactory for Evaluation - transformation zone component present 12/02/2022 16:36 [facility] General Categorization Negative for intraepithelial lesion or malignancy 12/02/2022 16:36 [facility] Attestation . 12/02/2022 16:36 [facility] at 1635 Clinical History See below 12/03/19 16:36 [facility] HPV The result for the Human Papillomavirus (HPV) Detection-High Risk Types is Negative. No E6 or E7 mRNA is detected from HPV types 16,18,31,33,35,39 ,45,51,52,56,58,5 9,66, and 68 by labor/excavator mediated amplification.Judit ting was performed on specimen [id number] and was resulted on 12/02/2022 1635 EST by LARRY, LAB INSTRUMENT RESULTS IN 12/02/2022 16:36 [facility] Performing Lab [facility] 12/02/2022 16:36 [facility] Scanned Images 12/02/2022 16:36 [facility] Papanicolaou smear specimen (specimen) CERVIX UTERI STRUCTURE / Unknown 11/15/2022 2:00 EST 11/18/2022 13:00 EST Beatriz Scott APN PATHOLOGY ORDERAB LES [facility] [address] [place] [address] documented in this encounter Visit Diagnoses Diagnosis Encounter for other general examination documented in this encounter Care Teams Funder Relationship Specialty Start Date End Date None, Provider PCP - General 07/30/21 06/10/23 Corinne Park FNP [address] [facility] [address] [place] [phone] PCP - General Family Medicine - Primary Care 06/11/23 documented as of this encounter
--- OUTSIDE RECORDS SUMMARY | 2024-05-24 02:14 | XMS_ITS | Encounter Summary ---
Author Organization [facility] Address [address] [place] [address] Care Team Providers Care Fuel Cell Assembler Name Role Phone Corinne Park XIMENA Primary Care Provider [phone] Encounter Details Date Type Department Care Team (Late st Contact Info) Description 01/06/2024 Lab Requisition [facility] Pathology & Laboratory Medicine - [address] [address] Outr Resulting Lab, Provider Social History Tobacco [...] Ab Negative See Note 01/07/2024 10:13 EDT [facility] Comment:Absence of detectabl e [...] ND SEROLOGY ORDERABLES Performing Organization Address [facility]/ZIP Co de Phone Number [facility] [address] [place], [place] [address] * RUBELLA IGG ANTIBODY (01/06/2024 11:36 EDT) Rubella IgG Ab Positive See Note 01/07/2024 10:14 EDT [facility] Comment:Positive for IgG ant ibodies to Rubella virus. Blood VENOUS BLOOD / Unknown 01/06/2024 11:36 EDT 01/06/2024 17:10 EDT Provider Outr Resulting Lab CHEMISTRY & BLOOD GAS ORDERABLES Performing Organization Address [facility] Co de Phone Number [facility] [address] [place], [place] [address] documented in this encounter Visit Diagnoses Not on filedocumented in this encounter Care Teams Fuel Cell Assembler Relationship Specialty Start Date End Date Corinne Park FNP [address] [place] [phone] PCP - General Family Medicine - Primary Care 06/11/23 documented as of this encounter
--- OUTSIDE RECORDS SUMMARY | 2024-05-24 02:14 | XMS_ITS | Encounter Summary ---
Author Organization [facility] Address [address] [place] [address] Care Team Providers Care Fire Equipment Operator Name Role Phone Corinne Park XIMENA Primary Care Provider [phone] Encounter Details Date Type Department Care Team (Late st Contact Info) Description 01/06/2024 Lab Requisition [facility] Pathology & Laboratory Medicine - [address] [address] Outr Resulting Lab, Provider Social History Tobacco [...] Surface Ag Negative Negative 01/06/2024 18:25 EDT [facility] Blood VENOUS BLOOD / Unknown 01/06/2024 11:36 EDT 01/06/2024 17:10 EDT Provider Outr Resulting Lab CHEMISTRY & BLOOD GAS ORDERABLES Performing Organization Address City/[facility]/ZIP Co de Phone Number [facility] [address] [place], [place] [id number] * HEPATITIS C AB W REFLEX TO HCV RNA BY PCR (01/06/2024 11:36 EDT) Hep C Antibody Negative Negative 01/06/2024 18:55 EDT [facility] Blood VENOUS BLOOD / Unknown 01/06/2024 11:36 EDT 01/06/2024 17:10 EDT Provider Outr Resulting Lab CHEMISTRY & BLOOD GAS ORDERABLES Performing Organization Address City/[facility] Co de Phone Number [facility] [address] [place], [place] [address] documented in this encounter Visit Diagnoses Not on filedocumented in this encounter Care Teams Fire Equipment Operator Relationship Specialty Start Date End Date Corinne Park FNP [address] [facility] [address] [place] [phone] PCP - General Family Medicine - Primary Care 06/11/23 documented as of this encounter
--- OUTSIDE RECORDS SUMMARY | 2024-05-24 02:15 | XMS_ITS | Encounter Summary ---
Author Organization [facility] Address [address] [place] [address] Care Team Providers Care Profile Stitching Machine Operator Name Role Phone None, Provider Primary Care Provider Corinne Lewis Primary Care Provider [phone] Encounter Details Date Type Department Care Team (Late st Contact Info) Description 03/14/2022 Lab Requisition [facility] Pathology & [place] [address] Outr Resulting Lab, Provider Social History Tobacco [...] Negative See Note 03/15/2022 10:11 EDT [facility] Comment:Absence of detectabl e [...] A ND SEROLOGY ORDERABLES Performing Organization Address [facility] Co de Phone Number [facility] [address] [place] [address] * RUBELLA IGG ANTIBODY (03/14/2022 11:55 EDT) Rubella IgG Ab Positive See Note 03/15/2022 10:15 EDT [facility] Comment:Positive for IgG ant ibodies to Rubella virus. Blood VENOUS BLOOD / Unknown 03/14/2022 11:55 EDT 03/14/2022 17:24 EDT Provider Outr Resulting Lab CHEMISTRY & BLOOD GAS ORDERABLES Performing Organization Address [facility] Co de Phone Number [facility] [address] [place] [address] documented in this encounter Visit Diagnoses Not on filedocumented in this encounter Care Teams Profile Stitching Machine Operator Relationship Specialty Start Date End Date None, Provider PCP - General 07/30/21 06/10/23 Corinne Park FNP [address] [phone] PCP - General Family Medicine - Primary Care 06/11/23 documented as of this encounter
--- OUTSIDE RECORDS SUMMARY | 2024-05-24 02:15 | XMS_ITS | Encounter Summary ---
Author Organization [facility] Address [address] [place] [address] Care Team Providers Care Ironworker Helper Shop Name Role Phone None, Provider Primary Care Provider Corinne Lewis Primary Care Provider [phone] Encounter Details Date Type Department Care Team (Late st Contact Info) Description 02/06/2021 Lab Requisition [facility] Pathology & Laboratory Medicine - [address] [address] Outr Resulting Lab, Provider Social History Tobacco [...] Ab Negative See Note 02/08/2021 11:48 EDT [facility] Comment:Absence of detectabl [...] A ND SEROLOGY ORDERABLES Performing Organization Address [facility]/ZIP Co de Phone Number [facility] [address] [place] [address] * RUBELLA IGG ANTIBODY (02/05/2021 15:50 EDT) Rubella IgG Ab Positive See Note 02/07/2021 15:08 EDT [facility] Comment:Positive for IgG ant ibodies to Rubella virus. Blood VENOUS BLOOD / Unknown 02/05/2021 15:50 EDT 02/06/2021 16:43 EDT Provider Outr Resulting Lab CHEMISTRY & BLOOD GAS ORDERABLES Performing Organization Address [facility] Co de Phone Number [facility] [address] [place] [address] documented in this encounter Visit Diagnoses Not on filedocumented in this encounter Care Teams Ironworker Helper Shop Relationship Specialty Start Date End Date None, Provider PCP - General 07/30/21 06/10/23 Corinne Park FNP [address] [phone] PCP - General Family Medicine - Primary Care 06/11/23 documented as of this encounter
--- OUTSIDE RECORDS SUMMARY | 2024-05-24 02:15 | XMS_ITS | Encounter Summary ---
Author Organization [facility] Address [address] [place] [address] Care Team Providers Care Clinical Outcomes Manager Name Role Phone None, Provider Primary Care Provider Corinne Lewis Primary Care Provider [phone] Encounter Details Date Type Department Care Team (Late st Contact Info) Description 03/16/2021 Lab Requisition [facility] Pathology & [place] [address] Outr Resulting Lab, Provider Social History Tobacco [...] gonorrhoeae Result Negative Negative 03/19/2021 15:06 EDT [facility] Chlamydia trachomatis Result Negative Negative 03/19/2021 15:06 EDT [facility] Urine URINE / Unknown 03/16/2021 9 :25 EDT 03/16/2021 16:30 EDT Narrative [facility] - 03/19/2021 15:06 EDT A first catch urine specimen is acceptable for detection of Gonorrhea and Chlamydia, but might detect up to 10% fewer infections when compared with vaginal and endocervical swab samples. Provider Outr Resulting Lab MICROBIOLOGY - GENERAL ORDERABLES [facility] [address] [place] [address] documented in this encounter Visit Diagnoses Not on filedocumented in this encounter Care Teams Clinical Outcomes Manager Relationship Specialty Start Date End Date None, Provider PCP - General 07/30/21 06/10/23 Corinne Park FNP [address] [place] [phone] PCP - General Family Medicine - Primary Care 06/11/23 documented as of this encounter
--- OUTSIDE RECORDS SUMMARY | 2024-05-24 02:15 | XMS_ITS | Encounter Summary ---
Author Organization [facility] Address [address] [place] [address] Care Team Providers Care Specialty Plant Supervisor Name Role Phone None, Provider Primary Care Provider Corinne Lewis Primary Care Provider [phone] Encounter Details Date Type Department Care Team (Late st Contact Info) Description 10/23/2021 Lab Requisition [facility] Pathology & [place] [address] Outr Resulting Lab, Provider Social History Tobacco [...] Factor <8.6 <12.0 IU/mL 10/23/2021 21:50 EST [facility] Blood VENOUS BLOOD / Unknown 10/23/2021 9:06 EST 10/23/2021 21:18 EST Provider Outr Resulting Lab CHEMISTRY & BLOOD GAS ORDERABLES Performing Organization Address City/[facility]/ZIP Co de Phone Number [facility] [address] [place] [address] * ANTI NUCLEAR AB (NEYDA), IFA (10/23/2021 9:06 EST) NEYDA Interpretation Negative Negative 2021 14:43 EST [facility] Comment:No titer performed, NEYDA Screen is negative. Blood VENOUS BLOOD / Unknown 10/23/2021 9:06 EST 10/23/2021 21:18 EST Narrative [facility] - 10/24/2021 14:43 EST Results were obtained with the INOVA NOVA Lite HEp-2 NEYDA Kit by indirect immunofluorescence. Provider Outr Resulting Lab IMMUNOLOGY A ND SEROLOGY ORDERABLES Performing Organization Address [facility] Co de Phone Number [facility] [address] [place] [address] documented in this encounter Visit Diagnoses Not on filedocumented in this encounter Care Teams Specialty Plant Supervisor Relationship Specialty Start Date End Date None, Provider PCP - General 07/30/21 06/10/23 Corinne Park FNP [address] [place] [phone] PCP - General Family Medicine - Primary Care 06/11/23 documented as of this encounter
--- OUTSIDE RECORDS SUMMARY | 2024-05-24 02:15 | XMS_ITS | Encounter Summary ---
Author Organization [facility] Address [address] [place] [address] Care Team Providers Care Brisket Puller Name Role Phone None, Provider Primary Care Provider Corinne Lewis Primary Care Provider [phone] Encounter Details Date Type Department Care Team (Late st Contact Info) Description 08/13/2021 Lab Requisition [facility] Pathology & Laboratory Medicine - [address] [address] Debi Bateman [address] [place] [address] [place] [phone] Encounter for other general examination Social History [...] explore management options, if applicable. 08/16/2021 18:35 [facility] Final Diagnosis A. INTRAUTERINE CONTENTS, POST , EVACUATION: - Placental site nodule. - Partially hyalinized chorionic villi, consistent with retained products of conception. - Superficial strips of benign endometrial tissue and decidualized stroma with abundant blood clot. 08/16/2021 18:35 [facility] Attestation There was significant resident/fellow involvement in the diagnostic evaluation of this case. By the signature below, the attending physician certifies that they have personally conducted a gross and/or microscopic examination of the described specimens and rendered or confirmed the above diagnosis. 08/16/2021 18:35 [facility] at 1835 Clinical History hemorrhage; clinical diagnosis code O72.1 08/16/2021 18:35 [facility] Gross Description A. Received in [...] ARLEEN ALLEN MD 08/14/2021 10:41 08/16/2021 18:35 [facility] Resident/Mikie w: Arleen Allen MD 08/16/2021 18:35 [facility] Performing Lab [facility] 18:35 [facility] Scanned Images 08/16/2021 18:35 [facility] Tissue PRODUCTS OF CONCEPTION TISSUE SPECIMEN / Unknown 08/13/2021 5:14 EST 08/13/2021 17:29 EST Debi Bateman PATHOLOGY ORDERABLES [facility] [address] [place] [address] documented in this encounter Visit Diagnoses Diagnosis Encounter for other general examination documented in this encounter Care Teams Brisket Puller Relationship Specialty Start Date End Date None, Provider PCP - General 07/30/21 06/10/23 Corinne Park FNP [address] [facility] [address] [place] [phone] PCP - General Family Medicine - Primary Care 06/11/23 documented as of this encounter
--- OUTSIDE RECORDS SUMMARY | 2024-05-24 02:15 | XMS_ITS | Encounter Summary ---
Author Organization [facility] Address [address] [place] [address] Care Team Providers Care Distribution Coordinator Name Role Phone None, Provider Primary Care Provider Corinne Lewis Primary Care Provider [phone] Encounter Details Date Type Department Care Team (Late st Contact Info) Description 03/14/2022 Lab Requisition [facility] Pathology & [place] [address] Outr Resulting Lab, Provider Social History Tobacco [...] 4th Generation Negative Negative 03/15/2022 9:55 EDT [facility] Comment:If acute HIV-1 infec tion is suspected in a high risk patient, submit plasma specimen for HIV-1 RNA quantitation test. Blood VENOUS BLOOD / Unknown 03/14/2022 11:55 EDT 03/14/2022 17:24 EDT Narrative [facility] - 03/15/2022 9:55 EDT Fourth Generation assay performed on the Siemens Double Fusionaur XPT. Provider Outr Resulting Lab IMMUNOLOGY A ND SEROLOGY ORDERABLES [facility] [address] [place] [address] documented in this encounter Visit Diagnoses Not on filedocumented in this encounter Care Teams Distribution Coordinator Relationship Specialty Start Date End Date None, Provider PCP - General 07/30/21 06/10/23 Corinne Park FNP [address] [place] [phone] PCP - General Family Medicine - Primary Care 06/11/23 documented as of this encounter
--- OUTSIDE RECORDS SUMMARY | 2024-05-24 02:15 | XMS_ITS | Encounter Summary ---
Author Organization [facility] Address [address] [place] [address] Care Team Providers Care Supervisor Fleshing Name Role Phone None, Provider Primary Care Provider Corinne Lewis Primary Care Provider [phone] Encounter Details Date Type Department Care Team (Late st Contact Info) Description 02/06/2021 Lab Requisition [facility] Pathology & Laboratory Medicine - [address] [address] Outr Resulting Lab, Provider Social History Tobacco [...] 15:50 EDT) Hold Hold 02/06/2021 17:45 EDT [facility] Blood VENOUS BLOOD / Unknown 02/05/2021 15:50 EDT 02/06/2021 16:43 EDT Provider Outr Resulting Lab LAB INFO SER VICE AND SUPPORT & PHONE RESULT Performing Organization Address City/[facility]/ZIP Co de Phone Number [facility] [address] [place] [address] * HEPATITIS B SURFACE ANTIGEN (02/05/2021 15:50 EDT) Hep B Surface Ag Negative Negative 02/07/2021 10:43 EDT [facility] Blood VENOUS BLOOD / Unknown 02/05/2021 15:50 EDT 02/06/2021 16:43 EDT Provider Outr Resulting Lab CHEMISTRY & BLOOD GAS ORDERABLES Performing Organization Address [facility] Co de Phone Number [facility] [address] [place] [address] * HEPATITIS C AB W REFLEX TO HCV RNA BY PCR (02/05/2021 15:50 EDT) Hep C Antibody Negative Negative 02/07/2021 11:22 EDT [facility] Blood VENOUS BLOOD / Unknown 02/05/2021 15:50 EDT 02/06/2021 16:43 EDT Provider Outr Resulting Lab CHEMISTRY & BLOOD GAS ORDERABLES Performing Organization Address City/[facility]/ZIP Co de Phone Number [facility] [address] [place] [address] documented in this encounter Visit Diagnoses Not on filedocumented in this encounter Care Teams Supervisor Fleshing Relationship Specialty Start Date End Date None, Provider PCP - General 07/30/21 06/10/23 Corinne Park FNP [address] [place] [address] [place] [phone] PCP - General Family Medicine - Primary Care 06/11/23 documented as of this encounter
--- OUTSIDE RECORDS SUMMARY | 2024-05-24 02:15 | XMS_ITS | Encounter Summary ---
Author Organization [facility] Address [address] [place] [address] Care Team Providers Care Shower Attendant Name Role Phone None, Provider Primary Care Provider Corinne Lewis Primary Care Provider [phone] Encounter Details Date Type Department Care Team (Late st Contact Info) Description 02/06/2021 Lab Requisition [facility] Pathology & Laboratory Medicine - [address] [address] Outr Resulting Lab, Provider Social History Tobacco [...] 4th Generation Negative Negative 02/07/2021 11:27 EDT [facility] Comment: If acute HIV-1 infection is suspected in a high risk ??patient, submit plasma specimen for HIV-1 RNA quantitation test. Fourth Generation assay performed on the Siemens Usersnapaur. Blood VENOUS BLOOD / Unknown 02/05/2021 15:50 EDT 02/06/2021 16:43 EDT Provider Outr Resulting Lab IMMUNOLOGY A ND SEROLOGY ORDERABLES [facility] [address] [place] [address] documented in this encounter Visit Diagnoses Not on filedocumented in this encounter Care Teams Shower Attendant Relationship Specialty Start Date End Date None, Provider PCP - General 07/30/21 06/10/23 Corinne Park FNP [address] [facility] [address] [place] [phone] PCP - General Family Medicine - Primary Care 06/11/23 documented as of this encounter
--- NOTE | 2024-05-24 08:00 | DI.US_ITS ---
Exam(s) US OB NIDIA WEIGHT EXAM: US OB NIDIA WEIGHT CLINICAL HISTORY: size greater than dates,z34.90. TECHNIQUE: Transabdominal obstetrical ultrasound performed. COMPARISON: US POCUS EXAM from 01/06/2024 US US OB 2-3 TRIMESTER from 02/24/2024 FINDINGS:: Number of fetuses: One. position: Vertex. Placental location: Fundal no evidence of previa. BIOMETRIC DATA: BPD: 89mm = 36+ 1 weeks HC: 328mm = 37+ 2 weeks AC: 318mm = 35+5 weeks FL: 71 mm = 36 +3 weeks EFW: 2849 Gms = >97% Composite Age: 36+ 3 weeks KENNETH: 18 June 2024 Heart Rate: 161BPM Amniotic fluid index: 14.6 cm. Amount of fluid is visually within normal limits. IMPRESSION: size and weight are above the expected range by nearly 4 weeks. DATA REPOSITORY:
== END 2024-05-24 02:33 ==
LOC: DI 02:14
PROVIDERS: PCP Nurse Practitioner Community Health; Visit Provider Advanced Practice Midwife
DX: Z34.93 Encounter for supervision of normal pregnancy, unspecified, third trimester (principal); Z3A.30 30 weeks gestation of pregnancy
CPT/HCPCS: 76816

== ENCOUNTER 2024-06-04 11:35 | Outpatient (REF) | payer BC, SELFPAY ==
[2024-06-04 13:22] LABS: *AMPHETAMINES SCREEN URINE Negative (Negative); *BARBITURATES SCREEN URINE Negative (Negative); *BENZODIAZEPINES SCREEN URINE Negative (Negative); Cannabinoids THC Negative (Negative); Cocaine Screen,Urine Negative (Negative); METHADONE URINE SCREEN Negative (Negative); OPIATES URINE SCREEN Negative (Negative); Tricyclic Antidepressants Negative (Negative)
[2024-06-07 10:17] LABS: Fentanyl Scr w/Rfx Confirm Negative ng/mL (<1)
[2024-06-09 12:06] LABS: Buprenorphine Negative ng/mL (Cutoff: 5.0); Norbuprenorphine Negative ng/mL (Cutoff: 2.5)
== END 2024-06-04 11:36 | disposition home or self-care (01) ==
LOC: LBN 11:35
PROVIDERS: Advanced Practice Midwife; PCP Nurse Practitioner Community Health; Visit Provider Obstetrics & Gynecology
DX: Z34.93 Encounter for supervision of normal pregnancy, unspecified, third trimester (principal); F12.90 Cannabis use, unspecified, uncomplicated; Z3A.34 34 weeks gestation of pregnancy
CPT/HCPCS: 80307; 80348

== ENCOUNTER 2024-06-18 10:55 | Outpatient (REF) | payer BC, SELFPAY | END 2024-06-18 10:56 | disposition home or self-care (01) | LOC: LBN 10:55 | PROVIDERS: PCP Nurse Practitioner Community Health; Visit Provider Advanced Practice Midwife | DX: Z34.93 Encounter for supervision of normal pregnancy, unspecified, third trimester (principal) | CPT/HCPCS: 87081 ==

== ENCOUNTER 2024-07-15 00:15 | Inpatient (IN) | payer BC, MEDICAID, SELFPAY ==
--- OUTSIDE RECORDS SUMMARY | 2024-07-14 22:31 | XMS_ITS | Clinical Summary ---
Author Organization [facility] Address [address] [place] [address] Care Team Providers Care Coal Mine Inspector Name Role Phone Corinne Park XIMENA Primary Care Provider [phone] Encounters Date Type Department Care Team Description 06/04/2024 Lab Requisition [facility] Pathology & Laboratory Medicine - [address] [address] Outr Resulting Lab, Provider from Last 3 Months Social History Tobacco Use Types Packs/Day Years [...] series) 2011 COVID-19 Vaccine (2022-2 4 season) 2024 Hepatitis C Screen Completed 01/06/2024, 0 03/14/2022, 02/05/2021 Procedures Procedure Name Priority Date/Time Associated Diagnosis Comments FENTANYL SCREEN WITH REFLEX TO CONFIRMATION, U Routine 06/04/2024 11:35 EDT HEPATITIS C AB W REFLEX TO HCV RNA BY PCR Routine 01/06/2024 11:36 EDT from Last 3 Months or Most Recently Relevant to Health Maintenance Results * FENTANYL SCREEN WITH REFLEX TO CONFIRMATION, U (06/04/2024 11:35 EDT) Fentanyl Screen with Reflex to Confirmation, U Negative <1 ng/mL 06/07/2024 10:12 EDT [facility] Urine URINE / Unknown 06/04/2024 1 1:35 EDT 06/04/2024 22:07 EDT Narrative [facility] - 06/07/2024 10:12 EDT Testing performed by: [facility] [address] [place] [address], [address], [place] [address] Director Of Community Center: Mayco Murray MD; CLIA # [id number] Provider Outr Resulting Lab URINALYSIS O RDERABLES [facility] [address] [place] [address], [facility] [address] [place] [address], [facility] [phone] * HEPATITIS C AB W REFLEX TO HCV RNA BY PCR (01/06/2024 11:36 EDT) Pathologist [facility] Hep C Antibody Negative Negative 01/06/2024 18:55 EDT [facility] Blood VENOUS BLOOD / Unknown 01/06/2024 11:36 EDT 01/06/2024 17:10 EDT Provider Outr Resulting Lab CHEMISTRY & BLOOD GAS ORDERABLES [facility] [address] [place] [address] from Last 3 Months or Most Recently Relevant to Health Maintenance Care Teams Coal Mine Inspector Relationship Specialty Start Date End Date Corinne Park FNP 26 [facility] [address] [place] [phone] PCP - General Family Medicine - Primary Care 06/11/23
--- OUTSIDE RECORDS SUMMARY | 2024-07-14 22:31 | XMS_ITS | Encounter Summary ---
Author Organization [facility] Address [address] [place] [address] Care Team Providers Care Manager Hiv Name Role Phone XavierCorinne XIMENA Primary Care Provider [phone] Encounter Details Date Type Department Care Team (Late st Contact Info) Description 06/04/2024 Lab Requisition [facility] Pathology & Laboratory Medicine - [facility] [address] [place] [address] Outr Resulting Lab, Provider Social History Tobacco [...] TO CONFIRMATION, U Routine 06/04/2024 11:35 EDT documented in this encounter Results * FENTANYL SCREEN WITH REFLEX TO CONFIRMATION, U (06/04/2024 11:35 EDT) Fentanyl Screen with Reflex to Confirmation, U Negative <1 ng/mL 06/07/2024 10:12 EDT [facility] Urine URINE / Unknown 06/04/2024 1 1:35 EDT 06/04/2024 22:07 EDT Narrative [facility] - 06/07/2024 10:12 EDT Testing performed by: [facility] [address] [facility], [address], [place] [address] Behavioral Consultant: Mayco Murray MD; CLIA # [id number] Provider Outr Resulting Lab URINALYSIS O RDERABLES [facility] [address] [facility], [address] [place] [address], [facility] [phone] documented in this encounter Visit Diagnoses Not on filedocumented in this encounter Care Teams Manager Hiv Relationship Specialty Start Date End Date Corinne Park FNP [address] [place] [phone] PCP - General Family Medicine - Primary Care 06/11/23 documented as of this encounter
--- OUTSIDE RECORDS SUMMARY | 2024-07-14 22:31 | XMS_ITS | Referral Summary ---
Author Organization [facility] Address [address] [place] [address] Care Team Providers Care Driver License Agent Name Role Phone XavierCorinne XIMENA Primary Care Provider [phone] Encounters Date Type Department Care Team Description 06/04/2024 Lab Requisition [facility] Pathology & Laboratory Medicine - [address] [address] Outr Resulting Lab, Provider from Last 3 [...] U Negative <1 ng/mL 06/07/2024 10:12 EDT [facility] Urine URINE / Unknown 06/04/2024 1 1:35 EDT 06/04/2024 22:07 EDT [facility]ative [facility] - 06/07/2024 10:12 EDT Testing performed by: [facility] [address] [place] [address], [facility], [place] [address] Dinkey Operator Slate: Mayco Murray MD; CLIA # [id number] Provider Outr Resulting Lab URINALYSIS O RDERABLES [facility] [address] [place] [address], [facility] [address] [phone] * HEPATITIS C AB W REFLEX TO HCV RNA BY PCR (01/06/2024 11:36 EDT) Hep C Antibody Negative Negative 01/06/2024 18:55 EDT [facility] Blood VENOUS BLOOD / Unknown 01/06/2024 11:36 EDT 01/06/2024 17:10 EDT Provider Outr Resulting Lab CHEMISTRY & BLOOD GAS ORDERABLES [facility] [address] [place] [address] from Last 3 Months or Most Recently Relevant to Health Maintenance Care Teams Driver License Agent Relationship Specialty Start Date End Date Corinne Park FNP [address] [facility] [address] [place] [phone] PCP - General Family Medicine - Primary Care 06/11/23
--- OUTSIDE RECORDS SUMMARY | 2024-07-14 22:32 | XMS_ITS | Encounter Summary ---
Author Organization [facility] Address [address] [place] [address] Care Team Providers Care Retail Banking Manager Name Role Phone Corinne Park XIMENA Primary Care Provider [phone] Encounter Details Date Type Department Care Team (Late st Contact Info) Description 01/06/2024 Lab Requisition [facility] Pathology & Laboratory Medicine - [address] [address] Outr Resulting Lab, Provider Social History Tobacco [...] Surface Ag Negative Negative 01/06/2024 18:25 EDT [facility] Blood VENOUS BLOOD / Unknown 01/06/2024 11:36 EDT 01/06/2024 17:10 EDT Provider Outr Resulting Lab CHEMISTRY & BLOOD GAS ORDERABLES Performing Organization Address City/[facility]/ZIP Co de Phone Number [facility] [address] [place], [place] [phone] * HEPATITIS C AB W REFLEX TO HCV RNA BY PCR (01/06/2024 11:36 EDT) Hep C Antibody Negative Negative 01/06/2024 18:55 EDT [facility] Blood VENOUS BLOOD / Unknown 01/06/2024 11:36 EDT 01/06/2024 17:10 EDT Provider Outr Resulting Lab CHEMISTRY & BLOOD GAS ORDERABLES Performing Organization Address City/[facility] Co de Phone Number [facility] [address] [place], [place] [address] documented in this encounter Visit Diagnoses Not on filedocumented in this encounter Care Teams Retail Banking Manager Relationship Specialty Start Date End Date Corinne Park FNP 26 [facility] [address] [place] [phone] PCP - General Family Medicine - Primary Care 06/11/23 documented as of this encounter
--- OUTSIDE RECORDS SUMMARY | 2024-07-14 22:32 | XMS_ITS | Encounter Summary ---
Author Organization [facility] Address [address] [place] [address] Care Team Providers Care Supervisor Treating And Pumping Name Role Phone Corinne Park XIMENA Primary Care Provider [phone] Encounter Details Date Type Department Care Team (Late st Contact Info) Description 01/06/2024 Lab Requisition [facility] Pathology & Laboratory Medicine - [address] [address] Outr Resulting Lab, Provider Social History Tobacco [...] 4th Generation Negative Negative 01/06/2024 18:56 EDT [facility] Comment:If acute HIV-1 infec tion is suspected in a high risk patient, submit plasma specimen for HIV-1 RNA quantitation test. Blood VENOUS BLOOD / Unknown 01/06/2024 11:36 EDT 01/06/2024 17:10 EDT Narrative [facility] - 01/06/2024 18:56 EDT Fourth Generation assay performed on the Siemens Independent Spaceaur XPT. Provider Outr Resulting Lab IMMUNOLOGY A ND SEROLOGY ORDERABLES [facility] [address] [place] [address] documented in this encounter Visit Diagnoses Not on filedocumented in this encounter Care Teams Supervisor Treating And Pumping Relationship Specialty Start Date End Date Corinne Park FNP 26 [facility] [address] [place] [phone] PCP - General Family Medicine - Primary Care 06/11/23 documented as of this encounter
--- OUTSIDE RECORDS SUMMARY | 2024-07-14 22:32 | XMS_ITS | Encounter Summary ---
Author Organization [facility] Address [address] [place] [address] Care Team Providers Care Filling Machine Tender Name Role Phone None, Provider Primary Care Provider Corinne Lewis Primary Care Provider [phone] Encounter Details Date Type Department Care Team (Late st Contact Info) Description 03/14/2022 Lab Requisition [facility] Pathology & [place] [address] Outr Resulting Lab, Provider Social History Tobacco [...] 4th Generation Negative Negative 03/15/2022 9:55 EDT [facility] Comment:If acute HIV-1 infec tion is suspected in a high risk patient, submit plasma specimen for HIV-1 RNA quantitation test. Blood VENOUS BLOOD / Unknown 03/14/2022 11:55 EDT 03/14/2022 17:24 EDT Narrative [facility] - 03/15/2022 9:55 EDT Fourth Generation assay performed on the Siemens ThisLifeaur XPT. Provider Outr Resulting Lab IMMUNOLOGY A ND SEROLOGY ORDERABLES [facility] [address] [place] [address] documented in this encounter Visit Diagnoses Not on filedocumented in this encounter Care Teams Filling Machine Tender Relationship Specialty Start Date End Date None, Provider PCP - General 07/30/21 06/10/23 Corinne Park FNP [address] [place] [phone] PCP - General Family Medicine - Primary Care 06/11/23 documented as of this encounter
--- OUTSIDE RECORDS SUMMARY | 2024-07-14 22:32 | XMS_ITS | Encounter Summary ---
Author Organization [facility] Address [address] [place] [address] Care Team Providers Care Medicare Biller Name Role Phone None, Provider Primary Care Provider Corinne Lewis Primary Care Provider [phone] Encounter Details Date Type Department Care Team (Late st Contact Info) Description 02/06/2021 Lab Requisition [facility] Pathology & Laboratory Medicine - [address] [address] Outr Resulting Lab, Provider Social History Tobacco [...] Ab Negative See Note 02/08/2021 11:48 EDT [facility] Comment:Absence of detectabl e Varicella [...] Performing Organization Address [facility]/ZIP Co de Phone Number [facility] [address] [place] [address] * RUBELLA IGG ANTIBODY (02/05/2021 15:50 EDT) Rubella IgG Ab Positive See Note 02/07/2021 15:08 EDT [facility] Comment:Positive for IgG ant ibodies to Rubella virus. Blood VENOUS BLOOD / Unknown 02/05/2021 15:50 EDT 02/06/2021 16:43 EDT Provider Outr Resulting Lab CHEMISTRY & BLOOD GAS ORDERABLES Performing Organization Address [facility] Co de Phone Number [facility] [address] [place] [address] documented in this encounter Visit Diagnoses Not on filedocumented in this encounter Care Teams Medicare Biller Relationship Specialty Start Date End Date None, Provider PCP - General 07/30/21 06/10/23 Corinne Park FNP [address] [phone] PCP - General Family Medicine - Primary Care 06/11/23 documented as of this encounter
--- OUTSIDE RECORDS SUMMARY | 2024-07-14 22:32 | XMS_ITS | Encounter Summary ---
Author Organization [facility] Address [address] [place] [address] Care Team Providers Care Modern Dancer Name Role Phone None, Provider Primary Care Provider Corinne Lewis Primary Care Provider [phone] Encounter Details Date Type Department Care Team (Late st Contact Info) Description 03/14/2022 Lab Requisition [facility] Pathology & [place] [address] Outr Resulting Lab, Provider Social History Tobacco [...] Ab Negative See Note 03/15/2022 10:11 EDT [facility] Comment:Absence of detectabl [...] A ND SEROLOGY ORDERABLES Performing Organization Address [facility] Co de Phone Number [facility] [address] [place] [address] * RUBELLA IGG ANTIBODY (03/14/2022 11:55 EDT) Rubella IgG Ab Positive See Note 03/15/2022 10:15 EDT [facility] Comment:Positive for IgG ant ibodies to Rubella virus. Blood VENOUS BLOOD / Unknown 03/14/2022 11:55 EDT 03/14/2022 17:24 EDT Provider Outr Resulting Lab CHEMISTRY & BLOOD GAS ORDERABLES Performing Organization Address [facility] Co de Phone Number [facility] [address] [place] [address] documented in this encounter Visit Diagnoses Not on filedocumented in this encounter Care Teams Modern Dancer Relationship Specialty Start Date End Date None, Provider PCP - General 07/30/21 06/10/23 Corinne Park FNP [address] [phone] PCP - General Family Medicine - Primary Care 06/11/23 documented as of this encounter
--- OUTSIDE RECORDS SUMMARY | 2024-07-14 22:32 | XMS_ITS | Encounter Summary ---
Author Organization [facility] Address [address] [place] [address] Care Team Providers Care Intelligence Support Officer Name Role Phone None, Provider Primary Care Provider Corinne Lewis Primary Care Provider [phone] Encounter Details Date Type Department Care Team (Late st Contact Info) Description 11/18/2022 Lab Requisition [facility] Pathology & [place] [address] Beatriz Scott, QUALITY PROJECT MANAGER [address] [place] [phone] Encounter for other general examination Social History [...] Risk types, PCR Negative Negative 12/02/2022 16:36 [facility] Comment:No E6 or E7 mRNA is detected from HPV types 16,18,31,33,35,39,45,51,52,56,58,59,66, and 68 by solar energy specialist mediated amplification. Papanicolaou smear specimen (specimen) CERVIX UTERI STRUCTURE / Unknown 11/15/2022 2:00 EST 11/29/2022 8:50 EST Beatriz Scott APN MICROBIOLOGY - GE NERAL ORDERABLES [facility] [address] [place] [address] * PAP TEST (11/15/2022 2:00 EST) Specimens A. Cervix and/or Endocervix , ThinPrep Imaging System with Manual Evaluation 12/02/2022 16:36 [facility] Specimen Adequacy Satisfactory for Evaluation - transformation zone component present 12/02/2022 16:36 [facility] General Categorization Negative for intraepithelial lesion or malignancy 12/02/2022 16:36 [facility] Attestation . 12/02/2022 16:36 [facility] at 1635 Clinical History See below 12/03/19 16:36 [facility] HPV The result for the Human Papillomavirus (HPV) Detection-High Risk Types is Negative. No E6 or E7 mRNA is detected from HPV types 16,18,31,33,35,39 ,45,51,52,56,58,5 9,66, and 68 by solar energy specialist mediated amplification.Judit ting was performed on specimen [id number] and was resulted on 12/02/2022 1635 EST by LARRY, LAB INSTRUMENT RESULTS IN 12/02/2022 16:36 [facility] Performing Lab [facility] 12/02/2022 16:36 [facility] Scanned Images 12/02/2022 16:36 [facility] Papanicolaou smear specimen (specimen) CERVIX UTERI STRUCTURE / Unknown 11/15/2022 2:00 EST 11/18/2022 13:00 EST Beatriz Scott APN PATHOLOGY ORDERAB LES [facility] [address] [place] [address] documented in this encounter Visit Diagnoses Diagnosis Encounter for other general examination documented in this encounter Care Teams Intelligence Support Officer Relationship Specialty Start Date End Date None, Provider PCP - General 07/30/21 06/10/23 Corinne Park FNP [address] [facility] [address] [place] [phone] PCP - General Family Medicine - Primary Care 06/11/23 documented as of this encounter
--- OUTSIDE RECORDS SUMMARY | 2024-07-14 22:32 | XMS_ITS | Encounter Summary ---
Author Organization [facility] Address [address] [place] [address] Care Team Providers Care Summer Counselor Name Role Phone None, Provider Primary Care Provider Corinne Lewis Primary Care Provider [phone] Encounter Details Date Type Department Care Team (Late st Contact Info) Description 02/06/2021 Lab Requisition [facility] Pathology & Laboratory Medicine - [address] [address] Outr Resulting Lab, Provider Social History Tobacco [...] 15:50 EDT) Hold Hold 02/06/2021 17:45 EDT [facility] Blood VENOUS BLOOD / Unknown 02/05/2021 15:50 EDT 02/06/2021 16:43 EDT Provider Outr Resulting Lab LAB INFO SER VICE AND SUPPORT & PHONE RESULT Performing Organization Address City/[facility]/ZIP Co de Phone Number [facility] [address] [place] [address] * HEPATITIS B SURFACE ANTIGEN (02/05/2021 15:50 EDT) Hep B Surface Ag Negative Negative 02/07/2021 10:43 EDT [facility] Blood VENOUS BLOOD / Unknown 02/05/2021 15:50 EDT 02/06/2021 16:43 EDT Provider Outr Resulting Lab CHEMISTRY & BLOOD GAS ORDERABLES Performing Organization Address [facility] Co de Phone Number [facility] [address] [place] [address] * HEPATITIS C AB W REFLEX TO HCV RNA BY PCR (02/05/2021 15:50 EDT) Hep C Antibody Negative Negative 02/07/2021 11:22 EDT [facility] Blood VENOUS BLOOD / Unknown 02/05/2021 15:50 EDT 02/06/2021 16:43 EDT Provider Outr Resulting Lab CHEMISTRY & BLOOD GAS ORDERABLES Performing Organization Address City/[facility]/ZIP Co de Phone Number [facility] [address] [place] [address] documented in this encounter Visit Diagnoses Not on filedocumented in this encounter Care Teams Summer Counselor Relationship Specialty Start Date End Date None, Provider PCP - General 07/30/21 06/10/23 Corinne Park FNP [address] [place] [address] [place] [phone] PCP - General Family Medicine - Primary Care 06/11/23 documented as of this encounter
--- OUTSIDE RECORDS SUMMARY | 2024-07-14 22:32 | XMS_ITS | Encounter Summary ---
Author Organization [facility] Address [address] [place] [address] Care Team Providers Care Director Talent Name Role Phone None, Provider Primary Care Provider Corinne Lewis Primary Care Provider [phone] Encounter Details Date Type Department Care Team (Late st Contact Info) Description 02/06/2021 Lab Requisition [facility] Pathology & Laboratory Medicine - [address] [address] Outr Resulting Lab, Provider Social History Tobacco [...] 4th Generation Negative Negative 02/07/2021 11:27 EDT [facility] Comment: If acute HIV-1 infection is suspected in a high risk ??patient, submit plasma specimen for HIV-1 RNA quantitation test. Fourth Generation assay performed on the [employer] [place] [employer]. Blood VENOUS BLOOD / Unknown 02/05/2021 15:50 EDT 02/06/2021 16:43 EDT Provider Outr Resulting Lab IMMUNOLOGY A ND SEROLOGY ORDERABLES [facility] [address] [place] [address] documented in this encounter Visit Diagnoses Not on filedocumented in this encounter Care Teams Director Talent Relationship Specialty Start Date End Date None, Provider PCP - General 07/30/21 06/10/23 Corinne Park FNP [address] [facility] [address] [place] [phone] PCP - General Family Medicine - Primary Care 06/11/23 documented as of this encounter
--- OUTSIDE RECORDS SUMMARY | 2024-07-14 22:32 | XMS_ITS | Encounter Summary ---
Author Organization [facility] Address [address] [place] [address] Care Team Providers Care Reed Or Wind Instrument Tuner Name Role Phone None, Provider Primary Care Provider Corinne Lewis Primary Care Provider [phone] Encounter Details Date Type Department Care Team (Late st Contact Info) Description 03/14/2022 Lab Requisition [facility] Pathology & [place] [address] Outr Resulting Lab, Provider Social History Tobacco [...] Surface Ag Negative Negative 03/15/2022 9:28 EDT [facility] Blood VENOUS BLOOD / Unknown 03/14/2022 11:55 EDT 03/14/2022 17:24 EDT Provider Outr Resulting Lab CHEMISTRY & BLOOD GAS ORDERABLES Performing Organization Address City/[facility]/ZIP Co de Phone Number [facility] [address] [place] [address] * HEPATITIS C AB W REFLEX TO HCV RNA BY PCR (03/14/2022 11:55 EDT) Hep C Antibody Negative Negative 03/15/2022 10:15 EDT [facility] Blood VENOUS BLOOD / Unknown 03/14/2022 11:55 EDT 03/14/2022 17:24 EDT Provider Outr Resulting Lab CHEMISTRY & BLOOD GAS ORDERABLES Performing Organization Address [facility] Co de Phone Number [facility] [address] [place] [address] documented in this encounter Visit Diagnoses Not on filedocumented in this encounter Care Teams Reed Or Wind Instrument Tuner Relationship Specialty Start Date End Date None, Provider PCP - General 07/30/21 06/10/23 Corinne Park FNP [address] [facility] [address] [place] [phone] PCP - General Family Medicine - Primary Care 06/11/23 documented as of this encounter
--- OUTSIDE RECORDS SUMMARY | 2024-07-14 22:32 | XMS_ITS | Encounter Summary ---
Author Organization [facility] Address [address] [place] [address] Care Team Providers Care V Belt Skiver Name Role Phone None, Provider Primary Care Provider Corinne Lewis Primary Care Provider [phone] Encounter Details Date Type Department Care Team (Late st Contact Info) Description 03/14/2022 Lab Requisition [facility] Pathology & [place] [address] Outr Resulting Lab, Provider Social History Tobacco [...] gonorrhoeae Result Negative Negative 03/15/2022 15:01 EDT [facility] Chlamydia trachomatis Result Negative Negative 03/15/2022 15:01 EDT [facility] Swab ENTIRE ENDOCERVIX / Unknown 03/14/2022 11:00 EDT 03/14/2022 21:27 EDT Provider Outr Resulting Lab MICROBIOLOGY - GENERAL ORDERABLES [facility] [address] [place] [address] documented in this encounter Visit Diagnoses Not on filedocumented in this encounter Care Teams V Belt Skiver Relationship Specialty Start Date End Date None, Provider PCP - General 07/30/21 06/10/23 Corinne Park FNP [address] [phone] PCP - General Family Medicine - Primary Care 06/11/23 documented as of this encounter
--- OUTSIDE RECORDS SUMMARY | 2024-07-14 22:32 | XMS_ITS | Encounter Summary ---
Author Organization [facility] Address [address] [place] [address] Care Team Providers Care Sheet Metal Fabricator Name Role Phone Corinne Park XIMENA Primary Care Provider [phone] Encounter Details Date Type Department Care Team (Late st Contact Info) Description 01/06/2024 Lab Requisition [facility] Pathology & Laboratory Medicine - [address] [address] Outr Resulting Lab, Provider Social History Tobacco [...] Ab Negative See Note 01/07/2024 10:13 EDT [facility] Comment:Absence of detectabl e [...] A ND SEROLOGY ORDERABLES Performing Organization Address [facility]/ZIP Co de Phone Number [facility] [address] [place], [place] [address] * RUBELLA IGG ANTIBODY (01/06/2024 11:36 EDT) Rubella IgG Ab Positive See Note 01/07/2024 10:14 EDT [facility] Comment:Positive for IgG ant ibodies to Rubella virus. Blood VENOUS BLOOD / Unknown 01/06/2024 11:36 EDT 01/06/2024 17:10 EDT Provider Outr Resulting Lab CHEMISTRY & BLOOD GAS ORDERABLES Performing Organization Address [facility] Co de Phone Number [facility] [address] [place], [place] [phone] documented in this encounter Visit Diagnoses Not on filedocumented in this encounter Care Teams Sheet Metal Fabricator Relationship Specialty Start Date End Date Corinne Park FNP [address] [place] [phone] PCP - General Family Medicine - Primary Care 06/11/23 documented as of this encounter
--- OUTSIDE RECORDS SUMMARY | 2024-07-14 22:32 | XMS_ITS | Encounter Summary ---
Author Organization [facility] Address [address] [place] [address] Care Team Providers Care Plant Protection Superintendent Name Role Phone None, Provider Primary Care Provider Corinne Lewis Primary Care Provider [phone] Encounter Details Date Type Department Care Team (Late st Contact Info) Description 10/23/2021 Lab Requisition [facility] Pathology & [place] [address] Outr Resulting Lab, Provider Social History Tobacco [...] Factor <8.6 <12.0 IU/mL 10/23/2021 21:50 EST [facility] Blood VENOUS BLOOD / Unknown 10/23/2021 9:06 EST 10/23/2021 21:18 EST Provider Outr Resulting Lab CHEMISTRY & BLOOD GAS ORDERABLES Performing Organization Address City/[facility]/ZIP Co de Phone Number [facility] [address] [place] [address] * ANTI NUCLEAR AB (NEYDA), IFA (10/23/2021 9:06 EST) NEYDA Interpretation Negative Negative 2021 14:43 EST [facility] Comment:No titer performed, NEYDA Screen is negative. Blood VENOUS BLOOD / Unknown 10/23/2021 9:06 EST 10/23/2021 21:18 EST Narrative [facility] - 10/24/2021 14:43 EST Results were obtained with the INOVA NOVA Lite HEp-2 NEYDA Kit by indirect immunofluorescence. Provider Outr Resulting Lab IMMUNOLOGY A ND SEROLOGY ORDERABLES Performing Organization Address [facility] Co de Phone Number [facility] [address] [place] [address] documented in this encounter Visit Diagnoses Not on filedocumented in this encounter Care Teams Plant Protection Superintendent Relationship Specialty Start Date End Date None, Provider PCP - General 07/30/21 06/10/23 Corinne Park FNP [address] [place] [phone] PCP - General Family Medicine - Primary Care 06/11/23 documented as of this encounter
--- OUTSIDE RECORDS SUMMARY | 2024-07-14 22:32 | XMS_ITS | Encounter Summary ---
Author Organization [facility] Address [address] [place] [address] Care Team Providers Care Poultry Veterinarian Name Role Phone None, Provider Primary Care Provider Corinne Lewis Primary Care Provider [phone] Encounter Details Date Type Department Care Team (Late st Contact Info) Description 03/16/2021 Lab Requisition [facility] Pathology & [place] [address] Outr Resulting Lab, Provider Social History Tobacco [...] gonorrhoeae Result Negative Negative 03/19/2021 15:06 EDT [facility] Chlamydia trachomatis Result Negative Negative 03/19/2021 15:06 EDT [facility] Urine URINE / Unknown 03/16/2021 9 :25 EDT 03/16/2021 16:30 EDT Narrative [facility] - 03/19/2021 15:06 EDT A first catch urine specimen is acceptable for detection of Gonorrhea and Chlamydia, but might detect up to 10% fewer infections when compared with vaginal and endocervical swab samples. Provider Outr Resulting Lab MICROBIOLOGY - GENERAL ORDERABLES [facility] [address] [place] [address] documented in this encounter Visit Diagnoses Not on filedocumented in this encounter Care Teams Poultry Veterinarian Relationship Specialty Start Date End Date None, Provider PCP - General 07/30/21 06/10/23 Corinne Park FNP [address] [place] [phone] PCP - General Family Medicine - Primary Care 06/11/23 documented as of this encounter
--- OUTSIDE RECORDS SUMMARY | 2024-07-14 22:32 | XMS_ITS | Encounter Summary ---
Author Organization [facility] Address [address] [place] [address] Care Team Providers Care Limnology Teacher Name Role Phone Corinne Park XIMENA Primary Care Provider [phone] Encounter Details Date Type Department Care Team (Late st Contact Info) Description 01/06/2024 Lab Requisition [facility] Pathology & Laboratory Medicine - [address] [address] Outr Resulting Lab, Provider Social History Tobacco [...] gonorrhoeae Result Negative Negative 01/07/2024 14:39 EDT [facility] Chlamydia trachomatis Result Negative Negative 01/07/2024 14:39 EDT [facility] Swab VAGINAL STRUCTURE / Unknown 01/06/2024 11:00 EDT 01/06/2024 18:48 EDT Provider Outr Resulting Lab MICROBIOLOGY - GENERAL ORDERABLES [facility] [address] [place] [address] documented in this encounter Visit Diagnoses Not on filedocumented in this encounter Care Teams Limnology Teacher Relationship Specialty Start Date End Date Corinne Park FNP [address] [phone] PCP - General Family Medicine - Primary Care 06/11/23 documented as of this encounter
--- OUTSIDE RECORDS SUMMARY | 2024-07-14 22:32 | XMS_ITS | Encounter Summary ---
Author Organization [facility] Address [address] [place] [address] Care Team Providers Care Contact Lens Polisher Name Role Phone None, Provider Primary Care Provider Corinne Lewis Primary Care Provider [phone] Encounter Details Date Type Department Care Team (Late st Contact Info) Description 08/13/[address] [facility] Pathology & Laboratory Medicine - [address] [address] [address]bi Bateman [address] [place] [address] [place] [phone] Encounter for other general examination Social History [...] explore management options, if applicable. 08/16/2021 18:35 [facility] Final Diagnosis A. INTRAUTERINE CONTENTS, POST , EVACUATION: - Placental site nodule. - Partially hyalinized chorionic villi, consistent with retained products of conception. - Superficial strips of benign endometrial tissue and decidualized stroma with abundant blood clot. 08/16/2021 18:35 [facility] Attestation There was significant resident/fellow involvement in the diagnostic evaluation of this case. By the signature below, the attending physician certifies that they have personally conducted a gross and/or microscopic examination of the described specimens and rendered or confirmed the above diagnosis. 08/16/2021 18:35 [facility] at 1835 Clinical History hemorrhage; clinical diagnosis code O72.1 08/16/2021 18:35 [facility] Gross Description A. [...] ARLEEN ALLEN MD 08/14/2021 10:41 08/16/2021 18:35 [facility] Resident/Mikie w: Arleen Allen MD 08/16/2021 18:35 [facility] Performing Lab [facility] 18:35 [facility] Scanned Images 08/16/2021 18:35 [facility] Tissue PRODUCTS OF CONCEPTION TISSUE SPECIMEN / Unknown 08/13/2021 5:14 EST 08/13/2021 17:29 EST Debi Bateman PATHOLOGY ORDERABLES [facility] [address] [place] [address] documented in this encounter Visit Diagnoses Diagnosis Encounter for other general examination documented in this encounter Care Teams Contact Lens Polisher Relationship Specialty Start Date End Date None, Provider PCP - General 07/30/21 06/10/23 Corinne Park FNP [address] [facility] [address] [place] [phone] PCP - General Family Medicine - Primary Care 06/11/23 documented as of this encounter
[2024-07-14 23:15] VITALS: BP 140/79; PULSE 72; RESP 17; TEMP 36.6; O2SAT 98
[2024-07-14 23:16] VITALS: BP 140/79; PULSE 72; TEMP 36.6
[2024-07-14 23:31] VITALS: BP 140/79; PULSE 72; RESP 17; TEMP 36.6; O2SAT 98
[2024-07-14 23:44] VITALS: PULSE 67; O2SAT 98
[2024-07-15] VITALS (11 sets, daily range): BP systolic 133–141; BP diastolic 77–93; PULSE 72–85; RESP 16–18; TEMP 36.4–36.8; O2SAT 97–99
--- NOTE | 2024-07-15 00:28 | HPE_ITS ---
Date of service: 07/15/24 Time of Service: 00:28 Assessment and Plan Assessment and plan (1) 39 weeks gestation of : Status: Acute (2) Irregular uterine contractions: Status: Acute Assessment and plan: A: 34 yo @ 39+5 weeks, prodromal discomforts and maternal anxiety reactive NST, GBS+, intact membranes, not in labor P: Pt requests morphine sleep for therapeutic rest tonight 15 mg morphine subQ now, no waking for vital signs or EFM Overnight obs and will reassess for labor status in the morning OB-HPI Labor/Delivery History of Present Illness Reason for Visit: NST Chief Complaint: Uterine Contractions. KENNETH Calculator Estimated Delivery Date Method Current WG Current Estimate 07/16/24 Ultrasound #1 39w 6d Other Estimates 07/09/24 LMP (Uncertain) 40w 6d Comments: Pt expresses anxiety and discomfort about going home with contractions that are not consistent but sometimes painful. She lives 15 minutes away from [facility], but prefers to spend the night here with morphine sleep in order to assure she is able to rest. History of Present Expected Delivery Route/Plan - CNM FOB/ - Jacques Varicella non-immune, offer vaccine Doesn't want to know gender until delivery Desires unmedicated labor unless has back labor, then would choose epidural GBS POSITIVE, plan PCN prophylaxis in labor Specific Issues/Plan 1. CF and SMA neg; declines cfDNA or AFP testing 2. 5P+: uses THC for nausea, aware of family safety plan. UDS -not done at [facility]; UDS @ 28 wks - neg 3. PHQ9 15, patient has access to phone numbers for counseling but has not reached out, declines referral to [facility] today 4. BMI 31, declines early glucola, opts for QID fingersticks 4a. At 15 wks, QID glucose levels x 2 wks overall nml. 4b. GDM screen at 28 wks: 117 5. Would like to sign TL papers in case of c/s, plan appt: w/Dr. Bateman 06/04/24 6. anatomy scan EFW in 96th percentile, will get EFW at 32 wks 6a. 32 wk EFW is >97th% @ 2846 gms, 4 wks ahead of expected growth, NIDIA 15, cephalic Assessment: History Reviewed & Current Informed Consent Informed Consent: Risk,Benefits,Alternatives Discussed and Other (morphine sleep for prodromal labor sx) Review of Systems Narrative: ROS noncontributory PFSH All Active Problems (Updated 07/15/24 @ 00:34 by Genna Zurita) Irregular uterine contractions (Acute) 39 weeks gestation of (Acute) Maternal varicella, non-immune (Acute) History of gestational hypertension (Acute) History of hemorrhage, currently (Acute) (Acute) Urine incontinence (Acute) Marijuana use (Acute) stopped use during ADHD (Acute) BMI 30.0-30.9,adult (Acute) Depression (Chronic) Medical History (Updated 07/15/24 @ 00:34 by Genna Zurita) COVID-19 affecting in second trimester + 07/09/22 symptom onset 07/06/22 Delayed menses Term of male History of depression Uterine size date discrepancy Family History (Updated 06/25/24 @ 09:04 by Beatriz Rizo CNM) Father Diabetes Hypertension Maternal Grandfather Cancer leukemia Sister Substance use disorder overdose Social History Smoking/Tobacco Use Status: Never Smoking risk assessment performed?: Yes Alcohol Intake: never Substance use type: does not use Do you feel safe at home: Yes Do you feel safe in your relationship?: Yes Female Reproductive History Menstrual control method: none History History 5 Para 3 Hx # Term Pregnancies 3 Multiple births 0 Hx # Pregnancies 0 Ectopic pregnancies 0 AB induced 0 Hx Number of Living Children 3 AB spontaneous 1 Past Pregnancies Del. Date GA/Weeks # Preg Succ Route Wgt Sex Labor Lgth Anesth esia Location Prov Complic 11/10/19 40 No Yes vaginal 8 lb 13 oz Male 48+ hrs regional CNM at [facility] In [facility] hemorrhage 08/13/21 40 No Yes vaginal 8 lb 15 oz Female 5 hr labor GALINA Rizo hemorrhage 10/02/22 39 No Yes vaginal 9 lb 3.8 oz Male 7hrs 4min GALINA Lozano Delivery Date: 11/10/19 Last Updated by: Genna Zurita [facility], labored 10 hrs & transfered to hospital for HTN, augmented, epidural, labored 2 more days, , PPH of 900 ml, required 2 units PRBC's, [place] Delivery Date: 08/13/21 Last Updated by: Genna Zurita Rapid labor, Stadol for pain x1, D&C by ROHAN for retained fragment; QBL 1600, no transfusion, Melinda Delivery Date: 10/02/22 Last Updated by: Genna Zurita spont labor, no complications, Jason Balbir Meds Allergies and Home Medications Allergies Allergy/AdvReac Type Severity Reaction Status Date / Time No Known Allergies Allergy Verified 07/12/24 09:12 Home Medications ?Medication ?Instructions ?Recorded ?Confirmed ?Type prenat.vits,zhou,[id number]-[id number] 1 tab PO DAILY 01/02/21 07/12/24 History cholecalciferol (vitamin D3) 10 2,000 unit PO DAILY 06/22/21 07/12/24 History mcg (400 unit) chewable tablet (Vitamin D3) ferrous sulfate 27 mg iron tablet 27 mg PO DAILY PRN 04/26/24 07/12/24 History ondansetron 4 mg disintegrating 4 mg PO Q6H PRN nausea and 05/17/24 07/12/24 Rx tablet vomiting #14 tabs pantoprazole 40 mg tablet,delayed 40 mg PO DAILY #30 tabs 05/21/24 07/12/24 Rx release (Protonix) Exam Physical Exam Vital signs: Temp Pulse Resp BP Pulse Ox 97.9 F 67 17 140/79 98 07/14/24 23:31 07/14/24 23:44 07/14/24 23:31 07/14/24 23:31 07/14/24 23:44 Vital Signs Reviewed: Yes Constitutional Constitutional: no acute distress and cooperative Detailed Labor and Delivery Exam Dilation: 3 Effacement (%): 20 station: -3 Cervix position: posterior Consistency: soft RIVERA Score(Cervical Ripeness Score): 4 Amniotic Membrane Status: Intact Pooling: Negative Nitrazine: Negative Ferning: Absent Contraction Frequency(min): irregular Contraction Intensity: Mild Fetus A Heart Rate Baseline: 140 Monitor Accelerations: Present Monitor Decelerations: None Variability: Moderate (6-25 BPM) Categories: Category I HEENT Exam HEENT Exam: Normal Neck Exam Neck Exam: Normal Chest/Brest/Axilla Exam Chest Exam: Normal Breast Exam Breast Exam: Not Done Respiratory Exam Respiratory Exam: Normal Cardiovascular Exam Cardiovascular Exam: Normal Abdominal Exam Abdominal Exam: Normal (gravid, nontender) Rectal Exam Rectal Exam: Normal Exam Exam: Normal Extremities Exam Extremities Exam: Normal Back/Spine/Pelvis Exam Back Exam: Normal Pelvis Adequate: Yes Skin Exam Skin Exam: Normal Neurological Exam Neurological Exam: Normal Psychiatric Exam Psychiatric Exam: Normal Results Results Group Beta Strep: Positive Blood Type: A+ Rubella Status: Immune Varicella Immunity: Nonimmune Risk Assessment Risk for Shoulder Dystocia Historical/Initial OB: POSITIVE FOR: Pre- BMI>30; NEGATIVE FOR: Pelvic Abnormality, Previous Shoulder Dystocia or Previous Macrosomia 36 Weeks: NEGATIVE FOR: Current Gestational DM, EFW>4500gms or Maternal Weight Gain>40lbs 40 Weeks: NEGATIVE FOR: EFW> 4500 gms, Maternal Weight Gain >40lb or Post Dates Increased Risk?: No Counseling: proven to 8'3 Delivery Plan @ 40 wks: NVD expected Risk for Pre-Eclampsia Yes, if one or more: POSTIVE FOR: Hx Pre-E/Gest HTN; NEGATIVE FOR: Chronic HTN, Multiple Gestation, Pre-gestational DM, Renal Disease, Systemic Lupus or APA Syndrome Yes, if 2 or more: POSITIVE FOR: BMI>30; NEGATIVE FOR: Nulliparity, Age>= 35 yrs, >10yr btwn pregnancies, ethinicty, Mother/Sister w/ Pre-E or Previous IUGR Risk for Post- Hemorrhage Initial: POSITIVE FOR: Previous PPH (history of retained placenta, last no complication); NEGATIVE FOR: Multiple Gestation, Known Clotting Deficiency, Grand Multiparity or Anticoagulation 36 Weeks: NEGATIVE FOR: Anemia, hgb<10, Low platelets(thrombocytopenia), Gestational HTN or Pre-E, Polyhydraminios or EFW>4500gms 40 Weeks: NEGATIVE FOR: Anemia, hgb<10, Low platelets (thrombocytopenia), Gestation HTN or Pre-E, Polyhydraminios or EFW>4500gms At Risk?: Yes (d/t hx) Interventions: PPH x2, pt aware of increased risk Counseled re: Active Management: Yes Date/Initials: 02/05/24 [facility] Risks Reviewed Risks Reviewed Upon Admission: Yes
--- NOTE | 2024-07-15 00:41 | W.OBNST ---
Date of service: 07/15/24 Time of Service: 00:41 NST Evaluation Reason for NST Reasons for Nonstress Test: OTHER, SEE COMMENT Reason for NST Other: Rule out labor / rupture Gestational Age Gestational Age in Weeks and Days: 39 Weeks and 5Days Test and Monitor Explained Test/Monitor Explained: Test Explained, Monitor Explained and Patient Verbalized Understanding Vital Signs Blood Pressure: 140/79 Pulse: 72 Temperature: 97.9 F Urine Results Urine Protein: Negative Urine Ketones: Positive Urine Glucose: Negative Urine Blood: Positive NST Information Date on Monitor: 07/14/24 Time on Monitor: 23:12 Date off Monitor: 07/15/24 Time off Monitor: 00:04 Total Time on Monitor: 52 NST Interventions: PO Hydration Contraction Frequency: 3-8 NST Evaluation Patient States Movement: Present FHR Baseline: 135 Variability: Moderate 6-25 bpm Accelerations: 15x15 and Prolonged Decelerations: None NST Results: Reactive Note Ultrasound Done: N/A. NST Note Note: SSE performed, negative for pooling, nitrizine and ferns Cvx 3/thick, posterior and soft, vtx -3 Will overnight obs with morphine sleep NST Reviewed and Verified by: Genna Zurita
[2024-07-15] MEDS: Calcium Carbonate *TUMS* 500 MG CHEW 1000 MG PO ×3 (00:50→14:59)
[2024-07-15] MEDS: MORPHine 10 MG/ML VIAL 15 MG SC (00:50)
[2024-07-15 10:22] LABS: HCT 33.9 % (36.0-46.0); MCH 28.6 pg (27.0-33.0); MCHC 32.4 % (32.0-36.0); MCV 88 fL (80-95); MPV 11.9 fL (8.0-11.0); Platelet Count 165 10^3/uL (130-400); RBC 3.84 10^6/uL (3.93-5.22); RDW 15.5 % (11.7-14.6); RDW-SD 49.1 fL; WBC 8.13 10^3/uL (4.4-10.8)
[2024-07-15 10:37] LABS: COMMENT (LAB VIEW ONLY) 108.21 mg/dL; PROTEIN 34.7 mg/dL; Prot/Crea Ur Ratio 0.32
[2024-07-15 10:37] LABS: ALT 15 U/L (14-59); AST 18 U/L (15-37); Albumin 2.6 g/dL (3.4-5.0); Alkaline Phosphatase 182 U/L (46-116); BUN 10 mg/dL (7-18); Bilirubin, Total 0.34 mg/dL (0.2-1.0); CREATININE 0.8 mg/dL (0.55-1.02); Calcium 9.7 mg/dL (8.5-10.1); Chloride 103 mmol/L (98-107); Estimated GFR 100.33 (mL/min/1.73m2); Glucose 114 mg/dL (74-106); Potassium 3.6 mmol/L (3.5-5.1); Sodium 138 mmol/L (136-145); Total Protein 7.5 g/dL (6.4-8.2)
--- NOTE | 2024-07-15 10:47 | W.PM.OBNL1 ---
Date of service: 07/15/24 Time of Service: 10:48 Informed Consent Informed Consent: Induction of Labor and Risk,Benefits,Alternatives Discussed Pelvic Exam Dilation: 4 Effacement (%): 20 station: -3 Cervix Position: mid Consistency: soft BISHOPS Score(Cervical Ripeness Score): 5 Contractions Monitor Mode: External Contraction Frequency(min): rare Intensity: Mild Fetus A Monitor: External (US) Heart Rate Baseline: 125 Variability: Moderate (6-25 BPM) Categories: Category I Accelerations: Present Decelerations: None Amniotic Membrane Status: Intact Assessment and Plan Assessment and plan (1) Gestational hypertension affecting fourth : Status: Acute Assessment and plan: A: 34 yo multipara @ 39+6 wks, new dx gHTN, mild range pressures Morphine sleep last night for prodromal sx now admitted for IOL GBS+, categry 1 tracing, Sterling score 5 Low risk for SD, increased risk for PPH d/t hx, gHTN and IOL process P: HTN labs drawn and nml, urine prot/creat elevated @ 0.32 Initiate IV access and begin PCN prophylaxis when pt feels discomfort Options, techniques and R&B of IOL reviewed, pt consents to misprostel initially Objective Vital Signs Reviewed: Yes Objective Narrative Objective Narrative: Pt denies RICHARDSON or visual changes, overall feeling well this morning at bedside for support Mild range BP noted, DTR's are WNL Category 1 tracing Pt tolerating oral intake without trouble Subjective Interval history since last seen: Pt slept 3-4 hours last night, contractions continue but are less painful, feeling refreshed and relaxed. Verbalizes understanding of persistent mild range BP's and gHTN diagnosis, consents to further blood tests, admission for induction of labor, PCN prophylaxis for GBS, and beginning with misprostel for initial cervical ripening.
[2024-07-15] MEDS: miSOPROStol 25 MCG TAB 50 MCG PO (11:08)
[2024-07-15] MEDS: Normal Saline Flush 10 ML SYR IVP ×3 (13:38→20:19)
[2024-07-15] MEDS: Pantoprazole 40 MG TABCR PO (13:40)
[2024-07-15] MEDS: miSOPROStol 50 MCG TAB PO ×2 (15:22→20:42)
--- NOTE | 2024-07-15 20:34 | W.PM.OBNL1 ---
Date of service: 07/15/24 Time of Service: 20:35 Informed Consent Informed Consent: Induction of Labor and Risk,Benefits,Alternatives Discussed Pelvic Exam Dilation: 2.5 Effacement (%): 20 station: -2 Cervix Position: posterior Consistency: soft Vaginal Exam Presentation: Cephalic Contractions Monitor Mode: External Contraction Frequency(min): every 2-5 Contraction Duration(sec): 40 Intensity: Mild/Moderate Fetus A Monitor: External (US) Heart Rate Baseline: 140 Presentation: Cephalic Variability: Moderate (6-25 BPM) Categories: Category I FHR Rhythm: Regular Accelerations: 15 X 15 Decelerations: None Amniotic Membrane Status: Intact Assessment and Plan Assessment and plan (1) Gestational hypertension affecting fourth : Status: Acute Assessment and plan: Will continue to assess blood pressure. Will hold vital signs while sleeping. repeat preeclampsia labs in the morning. (2) Encounter for induction of labor: Status: Acute Assessment and plan: Reviewed options with Michell including pitocin induction with or without AROM. or continuing misoprostol PO every 4 hours. Michell declines pitocin at this time and she delcines AROM. Will continue misoprostol per protocol for continued cervical ripening. Michell is considering epidural analgesia. Will reassess for signs of cervical change when appropriate. Anticipate . Objective Abnormal lab results 07/15/24 Range/Units 10:05 RBC 3.84 L (3.93-5.22) 10^6/uL Hgb 11.0 L (11.2-15.7) g/dL Hct 33.9 L (36.0-46.0) % RDW 15.5 H (11.7-14.6) % MPV 11.9 H (8.0-11.0) fL Glucose 114 H (74-106) mg/dL Alkaline Phosphatase 182 H (46-116) U/L Albumin 2.6 L (3.4-5.0) g/dL Temp Pulse Resp BP Pulse Ox 97.7 F 85 16 133/77 99 07/15/24 20:25 07/15/24 20:25 07/15/24 20:25 07/15/24 20:25 07/15/24 20:25 Laboratory Results WBC 8.13 10^3/uL (4.4-10.8) 07/15/24 10:05 RBC 3.84 10^6/uL (3.93-5.22) L 07/15/24 10:05 Hgb 11.0 g/dL (11.2-15.7) L 07/15/24 10:05 Hct 33.9 % (36.0-46.0) L 07/15/24 10:05 MCV 88 fL (80-95) 07/15/24 10:05 MCH 28.6 pg (27.0-33.0) 07/15/24 10:05 MCHC 32.4 % (32.0-36.0) 07/15/24 10:05 RDW 15.5 % (11.7-14.6) H 07/15/24 10:05 Plt Count 165 10^3/uL (130-400) 07/15/24 10:05 MPV 11.9 fL (8.0-11.0) H 07/15/24 10:05 Sodium 138 mmol/L (136-145) 07/15/24 10:05 Potassium 3.6 mmol/L (3.5-5.1) 07/15/24 10:05 Chloride 103 mmol/L (98-107) 07/15/24 10:05 Carbon Dioxide 25.0 mmol/L (21.0-32.0) 07/15/24 10:05 Anion Gap 10.0 mmol/L (3-11) 07/15/24 10:05 BUN 10 mg/dL (7-18) 07/15/24 10:05 Creatinine 0.8 mg/dL (0.55-1.02) 07/15/24 10:05 Est GFR (CKD-EPI 2020) 100.33 (mL/min/1.73m2) 07/15/24 10:05 Glucose 114 mg/dL (74-106) H 07/15/24 10:05 Calcium 9.7 mg/dL (8.5-10.1) 07/15/24 10:05 Total Bilirubin 0.34 mg/dL (0.2-1.0) 07/15/24 10:05 AST 18 U/L (15-37) 07/15/24 10:05 ALT 15 U/L (14-59) 07/15/24 10:05 Alkaline Phosphatase 182 U/L (46-116) H 07/15/24 10:05 Total Protein 7.5 g/dL (6.4-8.2) 07/15/24 10:05 Albumin 2.6 g/dL (3.4-5.0) L 07/15/24 10:05 Ur Random Creatinine 108.21 mg/dL 07/15/24 10:00 U Random Total Protein 34.7 mg/dL 07/15/24 10:00 U [place] Prot/Creat Ratio 0.32 07/15/24 10:00 ABO/Rh A Positive 07/15/24 10:05 Antibody Screen NEGATIVE 07/15/24 10:05 Vital Signs Reviewed: Yes Notable Details: BP 130s/70s-80s Objective Narrative Objective Narrative: normoreflexive, no edema Subjective Patient Reports: No new Complaints Interval history since last seen: Michell is comfortable and would like to discuss next steps. Results Hemoglobin/Hematocrit: Hgb 11.0 g/dL (11.2-15.7) L 07/15/24 10:05 Hct 33.9 % (36.0-46.0) L 07/15/24 10:05 Abnormal Lab Findings: Abnormal Labs 07/15/24 10:05 RBC 3.84 L Hgb 11.0 L Hct 33.9 L RDW 15.5 H MPV 11.9 H Glucose 114 H Alkaline Phosphatase 182 H Albumin 2.6 L
[2024-07-16] VITALS (112 sets, daily range): BP systolic 71–181; BP diastolic 38–108; PULSE 48–103; RESP 16–17; TEMP 36.5–37; O2SAT 93–100
[2024-07-16] MEDS: Normal Saline Flush 10 ML SYR IVP (05:37)
--- NOTE | 2024-07-16 05:42 | PGE_ITS ---
Date of service: 07/16/24 Time of Service: 05:42 Informed Consent Informed Consent: Induction of Labor and Risk,Benefits,Alternatives Discussed Pelvic Exam Dilation: 4 Effacement (%): 50 station: -3 Cervix Position: posterior Consistency: soft Vaginal Exam Presentation: Cephalic Contractions Monitor Mode: External Contraction Frequency(min): every 3-5 Contraction Duration(sec): 50-60 Intensity: Moderate/Strong Fetus A Monitor: External (US) Heart Rate Baseline: 140 Presentation: Cephalic Variability: Moderate (6-25 BPM) Categories: Category I FHR Rhythm: Regular Accelerations: 15 X 15 Decelerations: None Amniotic Membrane Status: Intact Assessment and Plan Assessment and plan (1) Encounter for induction of labor: Status: Acute Assessment and plan: Venkata Magdaleno CRNA called re: epidural. Comfort measures. (2) Gestational hypertension affecting fourth : Status: Acute Assessment and plan: preeclampsia labs repeated this morning. (3) Group B streptococcal carriage complicating : Status: Acute Assessment and plan: Will start IV penicillin per protocol for prophylaxis. Objective Abnormal lab results 07/15/24 Range/Units 10:05 RBC 3.84 L (3.93-5.22) 10^6/uL Hgb 11.0 L (11.2-15.7) g/dL Hct 33.9 L (36.0-46.0) % RDW 15.5 H (11.7-14.6) % MPV 11.9 H (8.0-11.0) fL Glucose 114 H (74-106) mg/dL Alkaline Phosphatase 182 H (46-116) U/L Albumin 2.6 L (3.4-5.0) g/dL Temp Pulse Resp BP Pulse Ox 97.7 F 82 16 145/83 H 99 07/16/24 05:02 07/16/24 05:02 07/15/24 20:25 07/16/24 05:02 07/15/24 20:25 Laboratory Results WBC 8.13 10^3/uL (4.4-10.8) 07/15/24 10:05 RBC 3.84 10^6/uL (3.93-5.22) L 07/15/24 10:05 Hgb 11.0 g/dL (11.2-15.7) L 07/15/24 10:05 Hct 33.9 % (36.0-46.0) L 07/15/24 10:05 MCV 88 fL (80-95) 07/15/24 10:05 MCH 28.6 pg (27.0-33.0) 07/15/24 10:05 MCHC 32.4 % (32.0-36.0) 07/15/24 10:05 RDW 15.5 % (11.7-14.6) H 07/15/24 10:05 Plt Count 165 10^3/uL (130-400) 07/15/24 10:05 MPV 11.9 fL (8.0-11.0) H 07/15/24 10:05 Sodium 138 mmol/L (136-145) 07/15/24 10:05 Potassium 3.6 mmol/L (3.5-5.1) 07/15/24 10:05 Chloride 103 mmol/L (98-107) 07/15/24 10:05 Carbon Dioxide 25.0 mmol/L (21.0-32.0) 07/15/24 10:05 Anion Gap 10.0 mmol/L (3-11) 07/15/24 10:05 BUN 10 mg/dL (7-18) 07/15/24 10:05 Creatinine 0.8 mg/dL (0.55-1.02) 07/15/24 10:05 Est GFR (CKD-EPI 2020) 100.33 (mL/min/1.73m2) 07/15/24 10:05 Glucose 114 mg/dL (74-106) H 07/15/24 10:05 Calcium 9.7 mg/dL (8.5-10.1) 07/15/24 10:05 Total Bilirubin 0.34 mg/dL (0.2-1.0) 07/15/24 10:05 AST 18 U/L (15-37) 07/15/24 10:05 ALT 15 U/L (14-59) 07/15/24 10:05 Alkaline Phosphatase 182 U/L (46-116) H 07/15/24 10:05 Total Protein 7.5 g/dL (6.4-8.2) 07/15/24 10:05 Albumin 2.6 g/dL (3.4-5.0) L 07/15/24 10:05 Ur Random Creatinine 108.21 mg/dL 07/15/24 10:00 U Random Total Protein 34.7 mg/dL 07/15/24 10:00 U [place] Prot/Creat Ratio 0.32 07/15/24 10:00 ABO/Rh A Positive 07/15/24 10:05 Antibody Screen NEGATIVE 07/15/24 10:05 Vital Signs Reviewed: Yes Subjective Patient Reports: New Complaints Interval history since last seen: Michell awoke at 0400 and reports strong contractions. She requests an epidural for pain. Results Hemoglobin/Hematocrit: Hgb 11.0 g/dL (11.2-15.7) L 07/15/24 10:05 Hct 33.9 % (36.0-46.0) L 07/15/24 10:05 Abnormal Lab Findings: Abnormal Labs 07/15/24 10:05 RBC 3.84 L Hgb 11.0 L Hct 33.9 L RDW 15.5 H MPV 11.9 H Glucose 114 H Alkaline Phosphatase 182 H Albumin 2.6 L
[2024-07-16] MEDS: Penicillin G POT. 5,000,000 UNITS in Normal Saline 100 ML 200 UNITS IVPB (05:52)
[2024-07-16] MEDS: Lactated Ringers 1,000 ML 125 ML IV ×2 (06:05→11:22)
[2024-07-16] MEDS: FentaNYL/ROPIvacaine 2 mcg/ml and 0.1% 200 ML CADD Cassette EP (06:42)
[2024-07-16 06:48] LABS: MCH 28.4 pg (27.0-33.0); MCHC 32.4 % (32.0-36.0); MCV 88 fL (80-95); MPV 12.1 fL (8.0-11.0); Platelet Count 191 10^3/uL (130-400); RBC 3.88 10^6/uL (3.93-5.22); RDW 15.7 % (11.7-14.6); RDW-SD 50.1 fL; WBC 8.57 10^3/uL (4.4-10.8)
--- NOTE | 2024-07-16 06:56 | W.ANESNEU ---
Epidural/Spinal Catheter Date Performed: 07/16/24 Procedure Start: 06:13 Procedure Stop: 06:50 Requesting Provider: Beatriz Rizo Procedure Location: Obstetrics Reason Performed: Labor Epidural Standard Monitors Applied: Blood Pressure, SpO2 and See EMR for corresponding vital signs Patient Position: Sitting Sedation Given (Indicate Dose Given): No Sedation given Patient Mental Status: Awake Sterility: Hand Hygiene, Surgical Cap, Surgical Mask, Sterile Gloves, Sterile Drape/Sheet, Eye Protection and Chlorhexidine Procedure Location: L4-L5 Interspace Epidural Needle: Tuohy 18 Gauge Needle Length: 3.5 Inch Needle Approach: Midline Epidural Procedure: Skin Prepped, Sterile Drape Placed, 1% Lidocaine to skin and subcutaneous tissue with 25G needle, Tuohy Needle placed, CONSTANTIN to Saline Used, Epidural Catheter Placed, Negative Heme, Negative CSF Flow and Tuohy Needle Removed Catheter Placed?: Catheter Placed Test Dose (Indicate Dose Given): 3ml 1.5% Lidocaine with 1:200K Epinephrine Given and Negative Test Dose Loss of Resistance Depth (cm): 8 Catheter depth at skin (cm): 13 Dressing: Sorbaview Dressing Placed, Mastisol Used and Dressing reinforced with Tape Epidural Provider Bolus (Indicate Dose Given): Total bolus dose given in 3-5 ml divided doses and Total Ropivacaine 0.1% with Fentanyl 2mcg/ml Given from pump. (ml) Dose:: 4ml Additives (Indicate Dose Given ): None Infusion Medication: Medication Infusion Began Medication Infusion: Ropivacaine 0.1% with Fentanyl 2mcg/ml Maintenance Infusion Rate (ml/hour): 10 PCEA Bolus Dose (ml): 5 Block Level: T7 Paresthesia: Right Paresthesia Duration: Transient Ultrasound: Not Used Number of Attempts (See previous attempts in note section): 2 Procedure Tolerated: No Complications and Patient tolerated well Procedure Outcome: Successful Procedure Comment:: Miss Garrido is being evaluated for labor epidural placement, consent was discussed, all questions were sought and answered, at this time she wishes to continue with epidural placement. Epidural attempt x 2, attempt 1 - a partial loss of resistance at 7cm, being that there was not absolute certainty that the epidural space was access, the toughy needle was removed. Attempt 2 at L4/L5 without complications. Catheter placed, 4ml bolus given after which the patient reported starry vision. No additional bolus given. Patient reports bilateral coverage upon reevaluation and reports some pain relief with contractions. Performed By: Fuentes Kirkland Supervised By: Venkata Magdaleno
[2024-07-16 07:14] LABS: ALT 16 U/L (14-59); AST 16 U/L (15-37); Albumin 2.5 g/dL (3.4-5.0); Alkaline Phosphatase 179 U/L (46-116); Anion Gap 11.9 mmol/L (3-11); BUN 12 mg/dL (7-18); Bilirubin, Total 0.33 mg/dL (0.2-1.0); CO2 23.1 mmol/L (21.0-32.0); CREATININE 0.8 mg/dL (0.55-1.02); Calcium 9.4 mg/dL (8.5-10.1); Chloride 104 mmol/L (98-107); Estimated GFR 100.33 (mL/min/1.73m2); Glucose 81 mg/dL (74-106); LDH 162 U/L (81-234); Potassium 4.1 mmol/L (3.5-5.1); Sodium 139 mmol/L (136-145); Total Protein 7.6 g/dL (6.4-8.2); Uric Acid 6.4 mg/dL (2.6-6.0)
[2024-07-16] MEDS: Oxytocin/Normal Saline 30 UNIT/500 ML BAG 2 UNITS IV (08:46)
[2024-07-16] MEDS: Pantoprazole 40 MG TABCR PO (08:49)
--- NOTE | 2024-07-16 09:07 | W.PM.OBNL1 ---
Date of service: 07/16/24 Time of Service: 09:07 Informed Consent Informed Consent: Induction of Labor and Risk,Benefits,Alternatives Discussed Pelvic Exam Dilation: 4 Effacement (%): 50 station: -3 Cervix Position: posterior Consistency: soft Vaginal Exam Presentation: Cephalic ROM Plus: Positive Contractions Monitor Mode: External Contraction Frequency(min): every 3-5 Contraction Duration(sec): 60 Intensity: Moderate/Strong Fetus A Monitor: External (US) Heart Rate Baseline: 150 Presentation: Cephalic Variability: Moderate (6-25 BPM) Categories: Category I Accelerations: 15 X 15 Decelerations: None Amniotic Membrane Status: Intact Assessment and Plan Assessment and plan (1) Encounter for induction of labor: Status: Acute Assessment and plan: Discussed indication for pitocin augmentation favio Galarza and she agrees and infusion was ordered. Patient's status reviewed with Dr Bateman. Anticipate (2) Gestational hypertension affecting fourth : Status: Acute Assessment and plan: Lab results reviewed with Dr Bateman including elevated uric acid (3) Group B streptococcal carriage complicating : Status: Acute Assessment and plan: Has received one dose of antibiotics Objective Abnormal lab results 07/15/24 07/16/24 Range/Units 10:05 06:00 RBC 3.84 L 3.88 L (3.93-5.22) 10^6/uL Hgb 11.0 L 11.0 L (11.2-15.7) g/dL Hct 33.9 L 34.0 L (36.0-46.0) % RDW 15.5 H 15.7 H (11.7-14.6) % MPV 11.9 H 12.1 H (8.0-11.0) fL Anion Gap 11.9 H (3-11) mmol/L Glucose 114 H (74-106) mg/dL Uric Acid 6.4 H (2.6-6.0) mg/dL Alkaline Phosphatase 182 H 179 H (46-116) U/L Albumin 2.6 L 2.5 L (3.4-5.0) g/dL Temp Pulse Resp BP Pulse Ox 97.7 F 80 16 122/71 100 07/16/24 05:02 07/16/24 08:53 07/15/24 20:25 07/16/24 08:53 07/16/24 06:50 Laboratory Results WBC 8.57 10^3/uL (4.4-10.8) 07/16/24 06:00 RBC 3.88 10^6/uL (3.93-5.22) L 07/16/24 06:00 Hgb 11.0 g/dL (11.2-15.7) L 07/16/24 06:00 Hct 34.0 % (36.0-46.0) L 07/16/24 06:00 MCV 88 fL (80-95) 07/16/24 06:00 MCH 28.4 pg (27.0-33.0) 07/16/24 06:00 MCHC 32.4 % (32.0-36.0) 07/16/24 06:00 RDW 15.7 % (11.7-14.6) H 07/16/24 06:00 Plt Count 191 10^3/uL (130-400) 07/16/24 06:00 MPV 12.1 fL (8.0-11.0) H 07/16/24 06:00 Sodium 139 mmol/L (136-145) 07/16/24 06:00 Potassium 4.1 mmol/L (3.5-5.1) 07/16/24 06:00 Chloride 104 mmol/L (98-107) 07/16/24 06:00 Carbon Dioxide 23.1 mmol/L (21.0-32.0) 07/16/24 06:00 Anion Gap 11.9 mmol/L (3-11) H 07/16/24 06:00 BUN 12 mg/dL (7-18) 07/16/24 06:00 Creatinine 0.8 mg/dL (0.55-1.02) 07/16/24 06:00 Est GFR (CKD-EPI 2020) 100.33 (mL/min/1.73m2) 07/16/24 06:00 Glucose 81 mg/dL (74-106) 07/16/24 06:00 Uric Acid 6.4 mg/dL (2.6-6.0) H 07/16/24 06:00 Calcium 9.4 mg/dL (8.5-10.1) 07/16/24 06:00 Total Bilirubin 0.33 mg/dL (0.2-1.0) 07/16/24 06:00 AST 16 U/L (15-37) 07/16/24 06:00 ALT 16 U/L (14-59) 07/16/24 06:00 Alkaline Phosphatase 179 U/L (46-116) H 07/16/24 06:00 Lactate Dehydrogenase 162 U/L (81-234) 07/16/24 06:00 Total Protein 7.6 g/dL (6.4-8.2) 07/16/24 06:00 Albumin 2.5 g/dL (3.4-5.0) L 07/16/24 06:00 Ur Random Creatinine 108.21 mg/dL 07/15/24 10:00 U Random Total Protein 34.7 mg/dL 07/15/24 10:00 U [place] Prot/Creat Ratio 0.32 07/15/24 10:00 ABO/Rh A Positive 07/15/24 10:05 Antibody Screen NEGATIVE 07/15/24 10:05 Subjective Patient Reports: No new Complaints Interval history since last seen: comfortable and resting with epidural. voided. Results Hemoglobin/Hematocrit: Hgb 11.0 g/dL (11.2-15.7) L 07/16/24 06:00 Hct 34.0 % (36.0-46.0) L 07/16/24 06:00 Abnormal Lab Findings: Abnormal Labs 07/15/24 07/16/24 10:05 06:00 RBC 3.84 L 3.88 L Hgb 11.0 L 11.0 L Hct 33.9 L 34.0 L RDW 15.5 H 15.7 H MPV 11.9 H 12.1 H Anion Gap 11.9 H Glucose 114 H Uric Acid 6.4 H Alkaline Phosphatase 182 H 179 H Albumin 2.6 L 2.5 L
[2024-07-16] MEDS: Penicillin G POT. 3,000,000 UNITS in Normal Saline 50 ML 100 UNITS IVPB (09:55)
[2024-07-16] MEDS: ePHEDrine 50 MG/ML VIAL IVP ×2 (10:19→10:24)
--- NOTE | 2024-07-16 10:52 | W.PM.OBNL1 ---
Date of service: 07/16/24 Time of Service: 10:52 Informed Consent Informed Consent: Induction of Labor and Risk,Benefits,Alternatives Discussed Pelvic Exam Dilation: 5 Effacement (%): 75 station: -3 Cervix Position: posterior Consistency: soft Vaginal Exam Presentation: Cephalic Contractions Monitor Mode: External Contraction Frequency(min): every 5 min Contraction Duration(sec): 60 Intensity: Moderate/Strong Fetus A Monitor: External (US) Heart Rate Baseline: 140 Presentation: Cephalic Variability: Moderate (6-25 BPM) Categories: Category II Accelerations: 15 X 15 Decelerations: Prolonged (associate dwith hypotension) Recurrence: Episodic Amniotic Membrane Status: Intact Assessment and Plan Assessment and plan (1) Medication adverse effect: Status: Acute Assessment and plan: With onset of adverse reaction, peniciliin infusion was discontinued by RN and hypotension was treated with IV ephedrine. IV fluid bolus was infused and oxygen administered via face mask. YEISON Dudley was paged stat and Tamara fierro also came to assess Michell. Stat tryptase level was ordered. Dr. Lamb was also called to the bedside and notified of Michell's status. bradycardia resolved and heart rate returned to 140s baseline. . Will continue to assess. (2) Group B streptococcal carriage complicating : Status: Acute Assessment and plan: antibiotic changed to clindamycin IV. Will continue to assess patient's response to medications. penicillin allergy added to allergy list. Objective Abnormal lab results 07/16/24 Range/Units 06:00 RBC 3.88 L (3.93-5.22) 10^6/uL Hgb 11.0 L (11.2-15.7) g/dL Hct 34.0 L (36.0-46.0) % RDW 15.7 H (11.7-14.6) % MPV 12.1 H (8.0-11.0) fL Anion Gap 11.9 H (3-11) mmol/L Uric Acid 6.4 H (2.6-6.0) mg/dL Alkaline Phosphatase 179 H (46-116) U/L Albumin 2.5 L (3.4-5.0) g/dL Temp Pulse Resp BP Pulse Ox 97.7 F 76 16 116/68 100 07/16/24 05:02 07/16/24 10:51 07/15/24 20:25 07/16/24 10:49 07/16/24 10:51 Laboratory Results WBC 8.57 10^3/uL (4.4-10.8) 07/16/24 06:00 RBC 3.88 10^6/uL (3.93-5.22) L 07/16/24 06:00 Hgb 11.0 g/dL (11.2-15.7) L 07/16/24 06:00 Hct 34.0 % (36.0-46.0) L 07/16/24 06:00 MCV 88 fL (80-95) 07/16/24 06:00 MCH 28.4 pg (27.0-33.0) 07/16/24 06:00 MCHC 32.4 % (32.0-36.0) 07/16/24 06:00 RDW 15.7 % (11.7-14.6) H 07/16/24 06:00 Plt Count 191 10^3/uL (130-400) 07/16/24 06:00 MPV 12.1 fL (8.0-11.0) H 07/16/24 06:00 Sodium 139 mmol/L (136-145) 07/16/24 06:00 Potassium 4.1 mmol/L (3.5-5.1) 07/16/24 06:00 Chloride 104 mmol/L (98-107) 07/16/24 06:00 Carbon Dioxide 23.1 mmol/L (21.0-32.0) 07/16/24 06:00 Anion Gap 11.9 mmol/L (3-11) H 07/16/24 06:00 BUN 12 mg/dL (7-18) 07/16/24 06:00 Creatinine 0.8 mg/dL (0.55-1.02) 07/16/24 06:00 Est GFR (CKD-EPI 2020) 100.33 (mL/min/1.73m2) 07/16/24 06:00 Glucose 81 mg/dL (74-106) 07/16/24 06:00 Uric Acid 6.4 mg/dL (2.6-6.0) H 07/16/24 06:00 Calcium 9.4 mg/dL (8.5-10.1) 07/16/24 06:00 Total Bilirubin 0.33 mg/dL (0.2-1.0) 07/16/24 06:00 AST 16 U/L (15-37) 07/16/24 06:00 ALT 16 U/L (14-59) 07/16/24 06:00 Alkaline Phosphatase 179 U/L (46-116) H 07/16/24 06:00 Lactate Dehydrogenase 162 U/L (81-234) 07/16/24 06:00 Total Protein 7.6 g/dL (6.4-8.2) 07/16/24 06:00 Albumin 2.5 g/dL (3.4-5.0) L 07/16/24 06:00 Ur Random Creatinine 108.21 mg/dL 07/15/24 10:00 U Random Total Protein 34.7 mg/dL 07/15/24 10:00 U [place] Prot/Creat Ratio 0.32 07/15/24 10:00 ABO/Rh A Positive 07/15/24 10:05 Antibody Screen NEGATIVE 07/15/24 10:05 Subjective Patient Reports: New Complaints Interval history since last seen: Michell experienced hypotension shortly after initiation of second dose of peniciliin. O2 was administered via mask and she was placed flat with a left tilt. bradycardia to the 80s occurred during the episode. Results Hemoglobin/Hematocrit: Hgb 11.0 g/dL (11.2-15.7) L 07/16/24 06:00 Hct 34.0 % (36.0-46.0) L 07/16/24 06:00 Abnormal Lab Findings: Abnormal Labs 07/15/24 07/16/24 10:05 06:00 RBC 3.84 L 3.88 L Hgb 11.0 L 11.0 L Hct 33.9 L 34.0 L RDW 15.5 H 15.7 H MPV 11.9 H 12.1 H Anion Gap 11.9 H Glucose 114 H Uric Acid 6.4 H Alkaline Phosphatase 182 H 179 H Albumin 2.6 L 2.5 L
[2024-07-16] MEDS: CLINDAMYCIN 900 MG/50 ML BAG 50 MG IVPB (11:18)
--- NOTE | 2024-07-16 11:57 | PDOC.ANES ---
Date of service: 07/16/24 Time of Service: 10:20 Anesthesia Note Report Anesthesia Note: Anesthesias presence was requested to evaluate Michell during a hypotensive episode. On arrival to her room she was found with HOB flat, left tilt in place, and IVF bolus infusing off the pump. She had had one IVP of ephedrine with reasonable effect. She was awake an interactive. She denies itching (outside of likely epidural side effects), difficulty breathing, oral swelling, or wheezing. There was no observed dyspnea, hives, or oral swelling. She states that she started to developed tunnel vision, and had felt like it was an increase amount of work to breath, breathing was not difficult, she was just feeling too weak to take a breath. This all of this resolved with the ephedrine and IVF. Currently she is feeling much better, but does endorse some clamminess of her hands. MAP is borderline and additional ephedrine was given with improvement of her MAP to the 80s. We discussed the signs and symptoms of anaphylaxis. A tryptase was ordered by the CNM. Her epidural rate was decreased to 7 mL/hr and aspirated without the return of blood or clear fluid. With her MAP better she felt better. Still endorses some hand clamminess. Her IV also around this time started to leak and was showing early signs of infiltration. A new IV was placed by the Isael in her right AC. 1407: doing well, feeling much better. Starting to feel contractions more. Epidural rate returned to 10 mL/ht.
[2024-07-16] MEDS: Ibuprofen 600 MG TAB PO (20:12)
[2024-07-16] MEDS: Hamamelis Leaf/Glycerin 100 EACH BOX PR (20:12)
[2024-07-16] MEDS: Acetaminophen 325 MG TAB 650 MG PO ×2 (20:12→20:21)
[2024-07-17] MEDS: Acetaminophen 325 MG TAB 650 MG PO ×5 (00:05→22:30)
[2024-07-17] MEDS: Ibuprofen 600 MG TAB PO ×4 (01:55→20:27)
[2024-07-17 06:53] LABS: HGB 9.7 g/dL (11.2-15.7); MCH 28.8 pg (27.0-33.0); MCHC 32.3 % (32.0-36.0); MCV 89 fL (80-95); MPV 12.2 fL (8.0-11.0); Platelet Count 152 10^3/uL (130-400); RBC 3.37 10^6/uL (3.93-5.22); RDW 15.6 % (11.7-14.6); RDW-SD 50.3 fL; WBC 8.78 10^3/uL (4.4-10.8)
--- NOTE | 2024-07-17 06:55 | OBVDS_ITS ---
Date of service: 07/16/24 Time of Service: 20:00 OB Labor/ Delivery Information Baby A Delivery Delivery Method: Spontaneaous Presentation: Cephalic Vertex Position: Left Occipital Anterior Cord Description-Baby A: 3 Vessels Amniotic Fluid: Clear Estimated Blood Loss: 300 Delivery Outcome: Liveborn Transferred: Remains with Mother Note: Clindamycin was administered for GBS prophylaxis after adverse reaction to penicillin. FHTs 140s during first stage of labor. FHTs 140s in second stage. She progressed to full dilation and began pushing on her hands and knees. Second stage huddle was done. Spontaneous delivery of female infant delivered in COLT position. Michell was repositioned and Baby was placed on mother's abdomen and dried and stimulated. Spontaneous cry. Cord was clamped and cut by the baby's father . The placenta delivered spontaneously and appears to by intact with a three vessel cord. Pitocin 30 units IV was administered delivery of the placenta. The perineum was inspected and a small perineal laceration was repaired under epidural analgesia. The baby did breastfeed. After delivery, Mother and baby and father of the baby were stable and bonding well in the delivery room and there were no complications. Providers Nurse Hearing Specialist: Beatriz Rizo [employer] Chief Inspector: Venkata Magdaleno Nurse: Yuliana Minaya Nurse: Ladonna Payton Labor/Delivery Information Number of Babies in Womb: 1 Steroids Given: None Reason Steroids Not Administered: N/A Group Beta Strep: Positive Antibiotics Administered: Yes Number of Doses of Antibiotics: 2 Rubella Status: Immune Blood Type: A+ Varicella Immunity: Nonimmune Born En Route: No Maternal Complications: None Shoulder Dystocia: No Stages of Labor Onset of Labor Date: 07/16/24 Onset of Labor Time: 10:00 Complete Dilatation Date: 07/16/24 Complete Dilatation Time: 15:12 Labor - Stage 1 Duration: 5 hours and 12 minutes ROM Baby A: 07/16/24 ROM Baby A: 14:55 ROM Total Time- Baby A: [email or web address] Infant Delivery Date-Baby A: 07/16/24 Delivery Time-Baby A: 15:15 Labor Stage 2 Duration: 3 minutes Placenta Delivery Date-Baby A: 07/16/24 Placenta Delivery Time-Baby A: 15:23 Labor-Stage 3 Duration: 8 minutes Total Length of Labor-Baby A: 5 hours and 15 minutes Placenta Status: Delivered Baby A Infant Gender: Female Gestational Status: Term (39-41.6 wks) Gestational Age in Weeks/Days: 40 Weeks and 0 Days weight: 9 lb 3.798 oz Length-Baby A: 21.5 in Head Circumference-Baby A: 14.75 in Score-1 Minute Interval(Baby A) Heart Rate-1 minute: 100 BPM or Greater Respiratory Effort- 1 minute: Spontaneous/Strong Cry Muscle Tone-1 minute: Active Movement Reflex Response-1 minute: Prompt Response Color-1 minute: Bluish Hands or Feet Total Score-1 minute: 9 Score-5 Minute Interval(Baby A) Heart Rate- 5 minute: 100 BPM or Greater Respiratory Effort-5 minute: Spontaneous/Strong Cry Muscle Tone-5 minute: Active Movement Reflex Response-5 minute: Prompt Response Color-5 minute: Bluish Hands or Feet Total Score- 5 minute: 9 Interventions Repair of Laceration Type: Perineal, Laceration Extension: First Degree. Laceration Repair Note: repaired with one interrupted suture
[2024-07-17 07:08] LABS: ALT 18 U/L (14-59); AST 16 U/L (15-37); Alkaline Phosphatase 138 U/L (46-116); Anion Gap 7.2 mmol/L (3-11); BUN 14 mg/dL (7-18); CO2 24.8 mmol/L (21.0-32.0); CREATININE 0.8 mg/dL (0.55-1.02); Calcium 9.1 mg/dL (8.5-10.1); Chloride 107 mmol/L (98-107); Estimated GFR 100.33 (mL/min/1.73m2); Glucose 86 mg/dL (74-106); Potassium 4.2 mmol/L (3.5-5.1); Sodium 139 mmol/L (136-145); Total Protein 6.2 g/dL (6.4-8.2); Uric Acid 6.2 mg/dL (2.6-6.0)
[2024-07-17 07:45] VITALS: BP 134/94; PULSE 84; RESP 16; TEMP 36.6; O2SAT 98
--- NOTE | 2024-07-17 09:26 | W.ANESPOSTOP ---
Postoperative Evaluation Date, Time and Location Date Performed: 07/17/24 Time Performed: 09:26 Patient Location: Obstetrics Vital Signs Most Recent Imported Vital Signs: Most Recent Vital Signs Temp Pulse Resp BP Pulse Ox 36.6 C 84 16 134/94 H 98 07/17/24 07:45 07/17/24 07:45 07/17/24 07:45 07/17/24 07:45 07/17/24 07:45 Pain Score Most Recent Pain Score: Most Recent Pain Score Pain Level [Generalized] 5 07/17/24 07:45 Pain Level 5 07/17/24 08:46 Assessment Mental Status: Awake (Alert & Oriented to Patient Baseline) Airway and Respiratory Function: Patent airway with normal (patient baseline) respiratory exam Cardiovascular Function: Hemodynamically Stable Hydration Status: Adequately Hydrated Nausea & Vomiting: No Nausea or Vomiting Pain: Pain is tolerable per patient Peripheral Nerve Block: Patient did not receive a nerve block Postoperative Comments:: Numbness of her right thigh has improved and is mostly back to normal. feels good at this point, with little bit of discomfort.
--- NOTE | 2024-07-17 10:16 | OBPPV_ITS ---
Date of service: 07/17/24 Time of Service: 10:16 Assessment and Plan Assessment and plan (1) Term of female : Status: Acute Assessment and plan: additional 200 mg ibuprofen offered. Caring for baby independently. Pain is managed well with oral analgesics. Voiding without difficulty. well. A - stable mother and baby , Post day 1, P - Discharge to home tomorrow. Routine post instructions. [facility] Will continue to assess pain relief. (2) Gestational hypertension affecting fourth : Status: Acute Assessment and plan: will continue to assess BP readings. Consider hypertensive medication if indicated. Subjective Subjective Interval history: Michell has been experiencing severe cramping with nursing. She is currently taking motrin with tylenol. preeclampsia labs drawn and are WNL this morning. uric acid decreased to 6.2. [place] baby status: Doing well [place] feeding status: Breast and formula feeding (history of low milk supply and supplemented previously) Exam Physical Exam Vital signs: Temp Pulse Resp BP Pulse Ox 97.9 F 84 16 134/94 H 98 07/17/24 07:45 07/17/24 07:45 07/17/24 07:45 07/17/24 07:45 07/17/24 07:45 Vital Signs Reviewed: Yes Constitutional Constitutional: no acute distress HEENT Exam HEENT Exam: Normal Respiratory Exam Respiratory Exam: Normal Cardiovascular Exam Cardiovascular Exam: Normal Fundal Exam Fundus: Below Umbilicus and Firm Extremities Exam Extremity Exam: Normal Skin Exam Skin Exam: Normal Psychiatric Exam Psychiatric Exam: Normal Results Hemoglobin/Hematocrit: Hgb 9.7 g/dL (11.2-15.7) L 07/17/24 06:05 Hct 30.0 % (36.0-46.0) L 07/17/24 06:05 Abnormal Lab Findings: Abnormal Labs 07/15/24 07/16/24 07/17/24 10:05 06:00 06:05 RBC 3.84 L 3.88 L 3.37 L Hgb 11.0 L 11.0 L 9.7 L Hct 33.9 L 34.0 L 30.0 L RDW 15.5 H 15.7 H 15.6 H MPV 11.9 H 12.1 H 12.2 H Anion Gap 11.9 H Glucose 114 H Uric Acid 6.4 H 6.2 H Alkaline Phosphatase 182 H 179 H 138 H Total Protein 6.2 L Albumin 2.6 L 2.5 L 2.0 L
[2024-07-17 11:30] VITALS: BP 124/80; PULSE 71
[2024-07-17] MEDS: Ibuprofen 200 MG TAB PO (11:40)
[2024-07-17 18:25] VITALS: BP 127/88; PULSE 72; RESP 16; TEMP 36.5; O2SAT 99
[2024-07-17 20:36] VITALS: BP 152/92
[2024-07-17 20:42] VITALS: BP 147/86; PULSE 67; RESP 16; TEMP 37.1; O2SAT 98
[2024-07-17 22:36] VITALS: BP 134/86; PULSE 67; RESP 16; TEMP 36.9; O2SAT 98
[2024-07-18] MEDS: Ibuprofen 600 MG TAB PO ×2 (01:57→08:10)
[2024-07-18] MEDS: Acetaminophen 325 MG TAB 650 MG PO ×2 (01:57→08:10)
[2024-07-18 02:04] VITALS: BP 133/86; PULSE 57
[2024-07-18 06:07] VITALS: BP 138/87; PULSE 69
[2024-07-18 06:37] LABS: HCT 30.3 % (36.0-46.0); HGB 9.6 g/dL (11.2-15.7); MCH 28.3 pg (27.0-33.0); MCHC 31.7 % (32.0-36.0); MCV 89 fL (80-95); MPV 11.8 fL (8.0-11.0); Platelet Count 154 10^3/uL (130-400); RBC 3.39 10^6/uL (3.93-5.22); RDW 15.6 % (11.7-14.6); RDW-SD 51.4 fL; WBC 8.15 10^3/uL (4.4-10.8)
[2024-07-18 06:56] LABS: ALT 14 U/L (14-59); AST 16 U/L (15-37); Albumin 2.1 g/dL (3.4-5.0); Alkaline Phosphatase 127 U/L (46-116); Anion Gap 7.2 mmol/L (3-11); BUN 13 mg/dL (7-18); Bilirubin, Total 0.18 mg/dL (0.2-1.0); CO2 25.8 mmol/L (21.0-32.0); CREATININE 0.8 mg/dL (0.55-1.02); Calcium 8.9 mg/dL (8.5-10.1); Chloride 106 mmol/L (98-107); Estimated GFR 100.33 (mL/min/1.73m2); Glucose 69 mg/dL (74-106); Potassium 4.1 mmol/L (3.5-5.1); Sodium 139 mmol/L (136-145); Total Protein 6.4 g/dL (6.4-8.2); Uric Acid 5.9 mg/dL (2.6-6.0)
--- NOTE | 2024-07-18 09:21 | W.PM.OBPNV1 ---
Date of service: 07/18/24 Time of Service: 09:21 Assessment and Plan Assessment and plan (1) Term of female : Status: Acute Assessment and plan: A: PPD#2, pre-eclampsia with mild range pressures PP, labs nml this morning P: Pt desires to be discharged, plans tubal ligation after 6 wks Discussed BP levels with Dr. Lamb, start labetalol 100 mg PO BID Written instructions reviewed and given to pt Plan BP check during first week Further f/up at 2 & 6 wks Warning sx of increasing HTN & when to call reviewed with pt (2) Pre-eclampsia affecting puerperium: Status: Acute Assessment and plan: Mild range pressures intermittently Begin Labetalol 100 mg PO BID Check BP mid week in office Subjective Subjective Patient comments: No complaints, Pain well controlled, Tolerating diet and Bowel Movement Patient's Mood: happy [place] baby status: Doing well, Nursing well, Rooming in and Strong Bonding Observed feeding status: Exclusively breast feeding Exam Physical Exam Vital signs: Temp Pulse Resp BP Pulse Ox 98.5 F 69 16 138/87 98 07/17/24 22:36 07/18/24 06:07 07/17/24 22:36 07/18/24 06:07 07/17/24 22:36 Vital Signs Reviewed: Yes Constitutional Constitutional: no acute distress and cooperative HEENT Exam HEENT Exam: Normal Neck Exam Neck Exam: Normal Breast Exam Bilateral: Breast Exam: Normal and Soft Nipple Exam: Normal and Uninjured Respiratory Exam Respiratory Exam: Normal Cardiovascular Exam Cardiovascular Exam: Normal Abdominal Exam Abdomen: Other (soft, nontender) Fundal Exam Fundus: Below Umbilicus and Firm Rectal Exam Rectal Exam: Normal Exam Perineum: Normal and Repair Intact Extremities Exam Extremity Exam: Normal, Full ROM and Warm to Touch Back/Spine/Pelvis Exam Back Exam: Normal Skin Exam Skin Exam: Normal Neurological Exam Neurological Exam: Normal Psychiatric Exam Psychiatric Exam: Normal Results Hemoglobin/Hematocrit: Hgb 9.6 g/dL (11.2-15.7) L 07/18/24 06:05 Hct 30.3 % (36.0-46.0) L 07/18/24 06:05 Abnormal Lab Findings: Abnormal Labs 07/15/24 07/16/24 07/17/24 10:05 06:00 06:05 RBC 3.84 L 3.88 L 3.37 L Hgb 11.0 L 11.0 L 9.7 L Hct 33.9 L 34.0 L 30.0 L MCHC RDW 15.5 H 15.7 H 15.6 H MPV 11.9 H 12.1 H 12.2 H Anion Gap 11.9 H Glucose 114 H Uric Acid 6.4 H 6.2 H Total Bilirubin Alkaline Phosphatase 182 H 179 H 138 H Total Protein 6.2 L Albumin 2.6 L 2.5 L 2.0 L 07/18/24 06:05 RBC 3.39 L Hgb 9.6 L Hct 30.3 L MCHC 31.7 L RDW 15.6 H MPV 11.8 H Anion Gap Glucose 69 L Uric Acid Total Bilirubin 0.18 L Alkaline Phosphatase 127 H Total Protein Albumin 2.1 L
[2024-07-18 09:35] VITALS: BP 149/81; PULSE 77; RESP 18; TEMP 37.2; O2SAT 95
--- NOTE | 2024-07-18 10:12 | DSE_ITS ---
Date of service: 07/18/24 Time of Service: 10:12 DS: Diagnosis Discharge Diagnosis (1) Term of female : Status: Acute (2) Pre-eclampsia affecting puerperium: Status: Acute Discharge Plan Disposition Patient Disposition: Home Condition: Good Discharge Details Reason For Visit: Therapeutic Rest, r/o Early Labor Admit Date/Time: 07/15/24 00:15 Admit Provider: Genna Zurita Attending Provider: Genna Zurita Primary Care Provider: Jane Way Hospital Course Hospital Course: After overnight morphine sleep pt was re-evaluated for mild range BP levels, labs done and had proteinuria for diagnosis of pre-eclampsia, Induction of labor begun with cervical ripening to which pt responded well, on HD#3, nml course with intermittent mild range BP's noted. Discharged on HD#5, f/up scheduled. Home Meds and New Rx's Prescriptions: No Action prenat.vits,zhou,[id number] Tablet 1 tab PO DAILY cholecalciferol (vitamin D3) [Vitamin D3] 10 mcg (400 unit) tablet,chewable 2,000 unit PO DAILY Rx Instructions: for a total of 500 mg/gummies ferrous sulfate 27 mg iron tablet 27 mg PO DAILY PRN ondansetron 4 mg tablet,disintegrating 4 mg PO Q6H PRN (Reason: nausea and vomiting) Qty: 14 3RF labetalol 100 mg tablet 100 mg PO BID Qty: 60 0RF Discharge Instructions Additional Instructions: Please keep appt for BP check at 1 week, and 2 & 6 week appointments with the communications senior associate, plan to schedule for tubal ligation pre-op with MD after 6 wk check up. Stand Alone Forms: BC Instructions, BC Post Vaginal Deliver Activity:: Activity as Tolerated Equipment/Supplies:: No Equipment Needed Diet:: Normal Diet OB:DS Summary Summary Vaginal Delivery Method: Spontaneaous Laceration Description: Perineal Laceration Extension: First Degree Contraception Discussed Contraception Discussed: Yes Contraceptive Plan: Tubal Ligation, Gender-Baby A: Female weight: 9 lb 3.798 oz Status at Discharge Functional status at discharge: independent ambulation Overall status at discharge: patient is progressing back to baseline Mental Status: mental status grossly normal Speech and Movement: speech and movement normal and speech clear Mood: congruent mood Affect: normal affect Quality:SDOH Health Related Social Needs: No Data to Display Exam Physical Exam Vital signs: Temp Pulse Resp BP Pulse Ox 99.0 F 77 18 149/81 H 95 07/18/24 09:35 07/18/24 09:35 07/18/24 09:35 07/18/24 09:35 07/18/24 09:35 Vital Signs Reviewed: Yes Constitutional Constitutional: no acute distress and cooperative HEENT Exam HEENT Exam: Normal Neck Exam Neck Exam: Normal Breast Exam Bilateral: Breast Exam: Normal and Soft Respiratory Exam Respiratory Exam: Normal Cardiovascular Exam Cardiovascular Exam: Normal Abdominal Exam Abdomen: Other (soft, nontender) Fundal Exam Fundus: Below Umbilicus and Firm Rectal Exam Rectal Exam: Normal Exam Perineum: Normal and Repair Intact Extremities Exam Extremity Exam: Normal, Full ROM and Warm to Touch Back/Spine/Pelvis Exam Back Exam: Normal Skin Exam Skin Exam: Normal Neurological Exam Neurological Exam: Normal Psychiatric Exam Psychiatric Exam: Normal PFSH All Active Problems (Updated 07/18/24 @ 09:53 by Genna Zurita) Anemia (Chronic) Pre-eclampsia affecting puerperium (Acute) Term of female (Acute) Maternal varicella, non-immune (Acute) Urine incontinence (Acute) ADHD (Acute) BMI 30.0-30.9,adult (Acute) Depression (Chronic) Medical History (Updated 07/18/24 @ 09:53 by Genna Zurita) Gestational hypertension affecting fourth Medication adverse effect Group B streptococcal carriage complicating Marijuana use stopped use during History of gestational hypertension Irregular uterine contractions Delayed menses History of depression Family History (Updated 06/25/24 @ 09:04 by Beatriz Rizo CNM) Father Diabetes Hypertension Maternal Grandfather Cancer leukemia Sister Substance use disorder overdose Social History Smoking/Tobacco Use Status: Never Smoking risk assessment performed?: Yes Alcohol Intake: never Substance use type: does not use Housing: house Do you feel safe at home: Yes Do you feel safe in your relationship?: Yes Female Reproductive History Menstrual control method: none History History 5 Para 3 Hx # Term Pregnancies 3 Multiple births 0 Hx # Pregnancies 0 Ectopic pregnancies 0 AB induced 0 Hx Number of Living Children 3 AB spontaneous 1 Past Pregnancies Del. Date GA/Weeks # Preg Succ Route Wgt Sex Labor Lgth Anesth esia Location Prov Complic 11/10/19 40 No Yes vaginal 8 lb 13 oz Male 48+ hrs regional CNM at [facility] In [facility] hemorrhage 08/13/21 40 No Yes vaginal 8 lb 15 oz Female 5 hr labor Sallie, [facility] hemorrhage 10/02/22 39 No Yes vaginal 9 lb 3.8 oz Male 7hrs 4min GALINA Lozano Delivery Date: 11/10/19 Last Updated by: Genna Zurita [facility], labored 10 hrs & transfered to hospital for HTN, augmented, epidural, labored 2 more days, , PPH of 900 ml, required 2 units PRBC's, [facility] Delivery Date: 08/13/21 Last Updated by: Genna Zurita Rapid labor, Stadol for pain x1, D&C by KJ for retained fragment; QBL 1600, no transfusion, Melinda Delivery Date: 10/02/22 Last Updated by: Genna Zurita spont labor, no complications, Jason Balbir DS: Data Vitals/I&O Vitals and I&O: Vital Signs Temperature 99.0 F 07/18/24 09:35 Temperature 97.9 F 07/15/24 00:42 Temperature Source Oral 07/18/24 09:35 Pulse 77 07/18/24 09:35 Pulse 72 07/15/24 00:42 Pulse Rhythm Regular 07/18/24 08:00 Respiratory Rate 18 07/18/24 09:35 Respiratory Depth Normal 07/18/24 08:00 Blood Pressure 149/81 H 07/18/24 09:35 Blood Pressure 140/79 07/15/24 00:42 Blood Pressure Mean 103 07/18/24 09:35 Pulse Oximetry 95 07/18/24 09:35 Oxygen Delivery Method Room Air 07/15/24 10:48 Oxygen Flow Rate 0 07/15/24 10:48 Pain Level 3 07/18/24 08:10 Comment notified 07/17/24 20:36 Intake & Output 07/17/24 07/17/24 07/18/24 11:59 23:59 11:59 Output Total 600 / 600 Balance -600 / -600 Output: Urine 600 / 600 Other: Urine Color Yellow Yellow Urine Appearance Clear Urine Odor None Comment pt independt with voiding s/p 3 voids post delivery Data Completed and Pending Labs on day of discharge: Labs from last 24 hours 07/18/24 07/17/24 06:05 06:05 WBC 8.15 RBC 3.39 L Hgb 9.6 L Hct 30.3 L MCV 89 MCH 28.3 MCHC 31.7 L RDW 15.6 H Plt Count 154 MPV 11.8 H Sodium 139 Potassium 4.1 Chloride 106 Carbon Dioxide 25.8 Anion Gap 7.2 BUN 13 Creatinine 0.8 Est GFR (CKD-EPI 2020) 100.33 Glucose 69 L Uric Acid 5.9 Calcium 8.9 Total Bilirubin 0.18 L AST 16 ALT 14 Alkaline Phosphatase 127 H Total Protein 6.4 Albumin 2.1 L Tryptase Pending
[2024-07-18] MEDS: Labetalol 100 MG TAB PO (10:22)
[2024-07-18] MEDS: Varicella Virus Vaccine (Live) 0.5 ML SC (10:23)
[2024-07-18 11:20] VITALS: BP 125/80
== END 2024-07-18 12:30 | disposition home or self-care (01) | DRG 807 ==
LOC: BCD 10:22 → OBS 10:23
PROVIDERS: Advanced Practice Midwife; Admitting Provider Advanced Practice Midwife; PCP Nurse Practitioner Community Health; Visit Provider Advanced Practice Midwife
DX: O14.04 Mild to moderate pre-eclampsia, complicating childbirth; Z37.0 Single live birth; O99.824 Streptococcus B carrier state complicating childbirth; Z3A.40 40 weeks gestation of pregnancy; F90.9 Attention-deficit hyperactivity disorder, unspecified type; F32.A Depression, unspecified; O99.344 Other mental disorders complicating childbirth; O70.0 First degree perineal laceration during delivery; O76 Abnormality in fetal heart rate and rhythm complicating labor and delivery; O9A.22 Injury, poisoning and certain other consequences of external causes complicating childbirth; I95.2 Hypotension due to drugs; T36.0X5A Adverse effect of penicillins, initial encounter
CPT/HCPCS: 59025; 36415; 80053; 83520; 85027; 86850; 86900; 86901; 90716; 59200; 82565; 83615; 84156; 84550; G0378; J0737; J2270; J2540; J3490

== ENCOUNTER 2025-03-14 00:53 | Outpatient (CLI) | payer BC, MEDICAID, SELFPAY ==
--- NOTE | 2025-03-14 15:07 | W.NUTRFU ---
Date of service: 03/14/25 Time of Service: 13:00 Nutrition Note NOTE: Barbara referred to nutrition appt for weight mgt help as she has been struggling in this area after having 4 children in the span of 3 years (currently 8mo, 2yo, 3y0 and 5yo) at her last visit on 12/31/24 she was 216.75lbs and states her UBW before kids was 160lbs. Whatever her goal might be, I suggested one day at a time focusing on seeing some progress slowly with small changes, and highlighted a family approach. Suggested looking into [facility] feeding expert who has a lot of great resources for families wanting to eat healthier and helps parents guide children into healthy, competent eaters. She tends to succumb to impulsive eating frequently, finishing unfinished food from kids' plates, eating out of stress or having a quick snack when she has a brief uninterrupted moment. - encouraged to work on stress mgt to avoid elevated cortisol levels. Fun exercise should be a goal but exercise should not outshadow diet as most important factor in her weight loss goals. Outlined her energy needs and other macros for menu planning and gave resources for this - suggested goals of 1800kcals, 180 grams total carbs (with at least 30g fiber and no more than 18 g added sugar), 135g protein, and 60g total fat (no more than 18g SFA)_ Reviewed importance of using plant protein to help achieve protein goal (whey and collagen powder ok too at 1 serving each per day) to help keep kcals down and achieve fiber goal. Barbara will give the sample menus a try and she has my contact info should she have questions or need for more resource or followup visits. Time Spent in Nutritional Counseling and Treatment: 25 min
== END 2025-03-14 00:54 | disposition home or self-care (01) ==
LOC: DS 00:53
PROVIDERS: PCP Nurse Practitioner Community Health; Visit Provider Dietitian, Registered
DX: E66.9 Obesity, unspecified (principal)
CPT/HCPCS: 00123; 97802

== ENCOUNTER → 2025-08-23 11:49 | Outpatient (CLI) | payer BC, MEDICAID, SELFPAY ==
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
== END ==
PROVIDERS: PCP Nurse Practitioner Community Health; Visit Provider Family Medicine
DX: S09.93XA Unspecified injury of face, initial encounter (principal); X58.XXXA Exposure to other specified factors, initial encounter; S02.2XXA Fracture of nasal bones, initial encounter for closed fracture
CPT/HCPCS: 70160